=== PATIENT | female | born 1980 | race Caucasian/White ===

== ENCOUNTER → 2020-03-24 15:15 | Outpatient (BNVA) | payer OTHER, SELFPAY | PROVIDERS: PCP Family Medicine; Referring Provider Family Medicine; Visit Provider Obstetrics & Gynecology | DX: Z76.89 Persons encountering health services in other specified circumstances (principal) ==

== ENCOUNTER 2020-03-24 18:01 | Outpatient (REF) | payer OTHER, SELFPAY ==
[2020-03-25 04:02] LABS: CT PCR NOT DETECTED (Not Detect.); NG PCR NOT DETECTED (Not Detect.)
[2020-03-25 11:59] LABS: BV Int Neg Control Negative (Negative); BV Int Pos Control Positive (Positive)
== END 2020-03-24 18:02 | disposition home or self-care (01) ==
LOC: HO.LNP 18:01
PROVIDERS: Visit Provider Obstetrics & Gynecology
DX: Z11.3 Encounter for screening for infections with a predominantly sexual mode of transmission (principal)
CPT/HCPCS: 87480; 87491; 87510; 87591; 87660

== ENCOUNTER → 2020-06-02 10:51 | Outpatient (BNVA) | payer OTHER, SELFPAY | PROVIDERS: PCP Family Medicine; Visit Provider Surgery | DX: Z76.89 Persons encountering health services in other specified circumstances (principal) ==

== ENCOUNTER → 2020-06-30 15:31 | Outpatient (BNVA) | payer OTHER, SELFPAY | PROVIDERS: PCP Family Medicine; Visit Provider Surgery | DX: Z76.89 Persons encountering health services in other specified circumstances (principal) ==

== ENCOUNTER 2020-07-04 08:18 | Outpatient (REF) | payer OTHER, SELFPAY ==
[2020-07-04 08:58] LABS: MANUAL DIFF FLAG NO
[2020-07-04 09:09] LABS: Basophils Percent Auto 0.4 % (0-2); Eosinophils Absolute Auto 0.1 X10*3/uL (0.0-0.4); Eosinophils Percent Auto 1.1 % (0-4); Hematocrit 41.7 % (37-47); Hemoglobin 13.2 g/dl (12.0-16.0); Imm Gran Abs Auto 0.02 X10*3/uL (0.00-0.03); Imm Gran Pct Auto 0.4 % (0.0-0.4); Lymphocytes Absolute Auto 1.8 X10*3/uL (1.2-4.9); Mean Corpuscular HGB Conc 31.7 g/dl (31.0-35.0); Mean Corpuscular Hemoglobin 26.9 pg (27.0-33.0); Mean Corpuscular Volume 84.9 fL (80-98); Mean Platelet Volume 11.5 fL (9.4-12.3); Monocytes Absolute Auto 0.3 X10*3/uL (0.1-1.2); Neutrophils Absolute Auto 3.1 X10*3/uL (2.0-8.3); Neutrophils Percent Auto 58.1 % (45-73); Platelet Count 210 X10*3/uL (160-400); Red Blood Count 4.91 X10*6/uL (4.20-5.50); Red Cell Distribution Width 13.5 % (11.0-16.0); White Blood Count 5.4 X10*3/uL (4.8-10.8)
[2020-07-04 09:32] LABS: Alanine Aminotransferase 11 U/L (0-31); Alkaline Phosphatase 49 U/L (39-117); Anion Gap 10 (12-20); Aspartate Amino Transferase 14 U/L (5-31); Bilirubin Total 0.4 mg/dL (0.0-1.0); Blood Urea Nitrogen 11 mg/dL (9-16); C Reactive Protein 0.12 mg/dL (< or = 0.50); Calcium 8.8 mg/dL (8.4-10.2); Carbon Dioxide 28 mmol/L (22-29); Chloride 107 mmol/L (96-108); Cholesterol 166 mg/dL; Estimated Glomerular Filt Rate > 60; Glucose Fasting 83 mg/dL (60-99); HDL Cholesterol 48 mg/dL; Iron 100 mcg/dL (30-160); LDL Cholesterol Calculated 97 mg/dl; Percent Iron Saturation 36 % (15-50); Potassium 4.2 mmol/l (3.3-5.1); Sodium 141 mmol/L (135-145); Total Iron Binding Capacity 274 mcg/dL (228-428); Total Protein 6.9 g/dL (6.5-8.0); Triglycerides 106 mg/dL; Unsaturated Iron Binding 174 ug/dL
[2020-07-04 09:55] LABS: Thyroid Stimulating Hormone 1.09 uIU/mL (0.32-4.0)
[2020-07-04 10:06] LABS: Vitamin B12 250 pg/mL (200-900)
[2020-07-07 00:53] LABS: Zinc 78 mcg/dL (60-130)
[2020-07-08 15:47] LABS: Vitamin B1 11 nmol/L (8-30)
[2020-07-09 16:07] LABS: Vitamin A 40 mcg/dL (38-98)
== END 2020-07-04 08:19 | disposition home or self-care (01) ==
LOC: HO.LAB 08:18
PROVIDERS: PCP Family Medicine; Visit Provider Surgery
DX: Z01.818 Encounter for other preprocedural examination (principal); K91.2 Postsurgical malabsorption, not elsewhere classified; Z90.3 Acquired absence of stomach [part of]
CPT/HCPCS: 36415; 80053; 80061; 82306; 82607; 83540; 84425; 84443; 84590; 84630; 85025; 86140

== ENCOUNTER 2020-09-02 08:35 | Outpatient (REF) | payer OTHER, SELFPAY ==
[2020-09-02 11:03] LABS: HBsAGNum1 0.15 S/CO (0.00-0.99); HIV AB/AG Nonreactive (Nonreactive); HIV Num 1 0.04 S/CO (0.00-0.99); Hepatitis B Surface Antigen Negative (Negative)
[2020-09-02 11:09] LABS: Syphilis Screen Nonreactive (Nonreactive)
[2020-09-02 15:14] LABS: CT PCR NOT DETECTED (Not Detect.); NG PCR NOT DETECTED (Not Detect.)
[2020-09-03 11:28] LABS: BV Int Neg Control Negative (Negative); BV Int Pos Control Positive (Positive)
== END 2020-09-02 08:36 | disposition home or self-care (01) ==
LOC: HO.LAB 08:35
PROVIDERS: PCP Family Medicine; Visit Provider Obstetrics & Gynecology
DX: Z01.419 Encounter for gynecological examination (general) (routine) without abnormal findings (principal); N93.0 Postcoital and contact bleeding; Z11.3 Encounter for screening for infections with a predominantly sexual mode of transmission
CPT/HCPCS: 36415; 86780; 87340; 87389; 87480; 87491; 87510; 87591; 87660

== ENCOUNTER → 2021-01-05 15:57 | Outpatient (BNVA) | payer OTHER, SELFPAY | PROVIDERS: Referring Provider Family Medicine; Visit Provider Surgery | DX: Z01.818 Encounter for other preprocedural examination (principal); K91.2 Postsurgical malabsorption, not elsewhere classified; Z90.3 Acquired absence of stomach [part of] ==

== ENCOUNTER → 2021-03-08 08:09 | Outpatient (BNVA) | payer OTHER, SELFPAY | PROVIDERS: PCP Family Medicine; Visit Provider Dietitian, Registered | DX: E66.3 Overweight (principal); Z68.26 Body mass index [BMI] 26.0-26.9, adult | CPT/HCPCS: 97803 ==

== ENCOUNTER → 2021-08-08 10:28 | Outpatient (REF) | payer OTHER, SELFPAY ==
--- NOTE | 2021-08-08 10:40 | ECG_ITS ---
Test Reason : PRE OP Blood Pressure : / mmHG Vent. Rate : 068 BPM Atrial Rate : 068 BPM P-R Int : 128 ms QRS Dur : 092 ms QT Int : 388 ms P-R-T Axes : 042 043 048 degrees QTc Int : 412 ms Normal sinus rhythm Normal ECG When compared with ECG of 29-DEC-2019 11:20, No significant change was found Referred By: Shauna Wallace Electronically Signed By:ELIZABETH DAVID
== END ==
LOC: HO.CARD 10:28
PROVIDERS: PCP Family Medicine; Visit Provider Family Medicine
DX: Z01.818 Encounter for other preprocedural examination (principal)
CPT/HCPCS: 93005

== ENCOUNTER 2021-10-09 13:46 | Outpatient (REF) | payer OTHER, SELFPAY ==
[2021-10-10 06:31] LABS: CT PCR NOT DETECTED (Not Detect.); NG PCR NOT DETECTED (Not Detect.)
== END 2021-10-09 13:47 | disposition home or self-care (01) ==
LOC: HO.LAB 13:46
PROVIDERS: Visit Provider Advanced Practice Midwife
DX: Z11.3 Encounter for screening for infections with a predominantly sexual mode of transmission (principal); Z20.2 Contact with and (suspected) exposure to infections with a predominantly sexual mode of transmission
CPT/HCPCS: 87491; 87591

== ENCOUNTER 2021-11-09 11:32 | Emergency (ER) | payer OTHER, SELFPAY ==
--- NOTE | ~2021-11-09 | CT_ITS ---
EXAMINATION: CT ABDOMEN AND PELVIS WITHOUT CONTRAST CLINICAL INFORMATION: Status post tummy tuck surgery. Left lower quadrant swelling. COMPARISON: None TECHNIQUE: Multidetector volumetric imaging was performed from the superior aspect of the liver through the pubic symphysis. Sagittal and coronal reformatted images were obtained on the technologist's workstation. This CT examination was performed using dose optimization techniques as appropriate, variously including the following: *Automated exposure control *Adjustment of mA and/or kV according to patient size (this includes techniques or standardized protocols for targeted exams where dose is matched to indication/reason for exam; i.e. extremities or head) *Use of iterative reconstruction technique DLP: 559 mGy-cm FINDINGS: LUNG BASES: Minimal atelectatic changes seen left lung base. The heart size is normal. LIVER, GALLBLADDER, AND BILIARY TREE: The liver is normal in size, shape, and attenuation. No focal hepatic lesion or biliary ductal dilatation is present. The gallbladder is unremarkable with no evidence of radiopaque gallstones, gallbladder wall thickening, or obvious pericholecystic inflammatory changes. PANCREAS: Unremarkable. SPLEEN: Unremarkable. ADRENAL GLANDS: The right adrenal gland is unremarkable. There is a complex hypodense lesion with peripheral wall calcification measuring 2.2 x 1.6 x 2.3 cm. Question complex left adrenal cyst. It measures 12 Hounsfield units. KIDNEYS AND URETERS: The left kidney is absent. The right kidney is slightly hypertrophied and enlarged measuring 12.4 cm. No radiopaque renal calculi or hydronephrosis seen. BLADDER: The bladder is nondistended. GASTROINTESTINAL TRACT: There is scattered stool and gas seen throughout the colon without any significant distention. The small bowel loops are normal caliber. Appendix is not visualized. There is gastric related postsurgical changes No free fluid seen. ABDOMINAL WALL: Patient has undergone lap resection and abdominal common duct surgery. There is diffuse abdominal wall cellulitis/edema. In addition there is a hypodense collection along the left lower anterior abdominal wall likely a seroma. It measures approximately 5.9 cm in craniocaudad length 5.8 cm wide and 1.7 cm in AP dimension. LYMPH NODES: Normal. VASCULAR: Unremarkable. PELVIC VISCERA: There is a small to moderate size right adnexal hypodense lesion measuring 3.6 x 3.9 cm and 5 Hounsfield units suggestive of a right ovarian cyst. The uterus is anteverted with an IUD well located in correct position within the endometrial canal. No free fluid seen. There are a few scattered phleboliths in the pelvis. OSSEOUS STRUCTURES: No aggressive lytic or sclerotic process. CT/CT abdomen pelvis wo con IMPRESSION: Status post liposuction and abdominal tummy tuck surgery there is diffuse cellulitis or edema of the abdominal wall. In addition there is a a left lower anterior abdominal wall seroma. Post op granulation tissue seen extending from a bowel the umbilicus inferiorly to just above the pubic symphysis. The left kidney is surgically absent. There is a complex cystic likely bilobed lesion in between the left adrenal gland and left renal fossa. The exact origin of this lesion, adrenal or renal is not known. It may be arising from the left adrenal gland. The right kidney is unremarkable. Mild constipation. Fleischner guidelines were followed.
[2021-11-09 13:07] VITALS: BP 159/84; PULSE 71; RESP 18; TEMP 36.9; O2SAT 100; BMI 27.4
--- NOTE | 2021-11-09 14:12 | ED_ITS ---
HPI - Skin/Abscess/Foreign Bdy General Chief complaint: Skin/Abscess/Foreign Body Stated complaint: pump in abd Time Seen by Provider: 11/09/21 13:56 Source: patient Mode of arrival: ambulatory Limitations: no limitations History of Present Illness HPI narrative: 41-year-old female who is status post tummy tuck, 360 lipoma, breast augmentation, BBL 2 months ago in [place] here with complaints of left lower abdomen swelling and pain for a few days. Patient tells me she has been wearing her course at and has been doing more activity at work with bending and lifting. She noticed some swelling and pain to the right lower abdomen initially but now feels like it is more in the left lower abdomen with some pain. No nausea, vomiting, diarrhea, urinary symptoms, fevers, chills. Related Data Home Medications Medication Instructions Recorded Confirmed calcium citrate 1,000 mg tablet 1,000 mg PO DAILY 06/02/20 01/05/21 [id number] 45 mg-folic cap PO .dialy cap 06/02/20 01/05/21 acid 800 mcg-vit K 120 mcg capsule (Bariatric Multivitamins) albuterol sulfate 90 mcg/actuation 2 puff PO Q4H PRN 06/30/20 01/05/21 aerosol inhaler Allergies Allergy/AdvReac Type Severity Reaction Status Date / Time adalimumab [From HUMIRA] Allergy Unknown RASH Verified 11/09/21 13:07 infliximab [From REMICADE] Allergy Unknown ANAPHYLAXIS Verified 11/09/21 13:07 suture [SUTURE] Allergy Unknown LOCAL RXN- Verified 11/09/21 13:07 INFECTION IN 2004 [employer] Allergy Unknown anaphylaxis Uncoded 01/05/21 16:28 Review of Systems Review of Systems: Yes all other systems are reviewed and are negative Constitutional: Constitutional: Reports no additional constitutional complaints, Denies body ache(s), Denies chills, Denies fever(s), Denies headache(s) and Denies weakness Eyes: Eyes: Reports no additional eye complaints and Denies change in vision ENT: Reports system reviewed and no additional complaints, except as documented, Denies dizziness, Denies headache(s), Denies nasal congestion, Denies nasal discharge and Denies neck pain Cardiovascular: Cardiovascular: Reports no additional cardiovascular complaints, Denies chest pain, Denies leg edema and Denies dyspnea Respiratory: Respiratory: Reports no additional respiratory complaints, Denies cough and Denies dyspnea Gastrointestinal: Gastrointestinal: Reports no additional gastrointestinal complaints, Reports abdominal pain, Denies diarrhea, Denies nausea and Denies vomiting Genitourinary: Genitourinary: Reports no additional female genitourinary complaints and Denies urinary incontinence Musculoskeletal: Musculoskeletal: Reports no additional musculoskeletal complaints, Denies back pain, Denies arthralgias, Denies joint swelling, Denies neck pain, Denies numbness and Denies tingling Integumentary/Breasts: Skin/Breast: Reports system reviewed and no additional complaints, except as docu and Denies rash Neurologic: Reports system reviewed and no additional complaints, except as documented, Denies Abnormal speech present, Denies dizziness, Denies headache(s), Denies numbness, Denies tingling and Denies weakness PMFSH Past Medical History Attestation statement: The following information was validated with the patient. Source: old records reviewed and nursing notes reviewed Medical History Asthma Surgical History H/O abdominoplasty H/O bilateral breast reduction surgery H/O breast augmentation H/O knee surgery History of sleeve gastrectomy Family History Family History Paternal Grandfather Prostate cancer Maternal Grandfather Prostate cancer Father No problems noted. Mother High cholesterol Hyperthelia Hypertension Sister No problems noted. Daughter PCOS (polycystic ovarian syndrome) Social History Social History Alcohol intake: current Patient Tobacco Use Status: Never used Tobacco Advance Directives: No Advance Directives Information Provided: No Sexual orientation: Straight/Heterosexual Gender identity: Female Physical Exam Vital Signs: Vital Signs: Last Vital Signs Temp 98.5 F 11/09/21 13:07 Pulse 71 11/09/21 13:07 Resp 18 11/09/21 13:07 BP 159/84 H 11/09/21 13:07 Pulse Ox 100 11/09/21 13:07 BMI result Body Mass Index 27.4 Const: General: cooperative, healthy appearing, comfortable and no acute distress Orientation/consciousness: patient oriented x3 Limitations: no limitations HEENT: Head: Yes normal to inspection Ears: hearing grossly normal bilaterally General nose exam: Normal external nose present Face and sinus: Yes normal facial exam Mouth: Normal oral and palatal mucosa present Throat: Yes posterior oropharynx normal Eyes: General: appearance normal, both eyes and all related structures Pupils: Equal, round and reactive pupils present Neck: Neck: Yes normal visual inspection Chest: Chest palpation & inspection: normal inspection of the chest Resp: Effort & Inspection: normal respiratory effort Auscultation: clear to auscultation bilaterally Cardio: Rate: regular rate Rhythm: regular rhythm Peripheral pulses: Peripheral pulses 2+ throughout GI: Other: Surgical incision site noted to the lower abdomen-healing There is some soft tissue swelling noted over left lower abdomen with tenderness. No palpable hernia. Inspection: Yes normal to inspection Palpation (GI): Soft to palpation and nontender Auscultation: normal bowel sounds Back/Spine/Pelvis: Thoracic/Lumbar Spine: thoracic and lumbar spine normal to inspection Skin: General skin exam: no rashes or lesions noted Neuro: General: patient oriented x3, no focal motor deficits and normal sensation to monofilament Cranial nerves: Yes Equal, round and reactive pupils present Cognition (Neuro): normal cognition Speech: No Abnormal speech present Gait exam (Neuro): Normal gait present Motor exam (neuro): 5/5 motor strength present throughout Extrem: General: Yes normal to inspection Course Course Course Narrative: 41-year-old female here with swelling to the left lower abdomen the setting of recent abdominal wall surgery. Will check labs, UA, CT Reevaluation(s) Reevaluation #1: Reviewed CT. Status post liposuction and abdominal tummy tuck surgery there is diffuse cellulitis or edema of the abdominal wall. In addition there is a a left lower anterior abdominal wall seroma. Post op granulation tissue seen extending from a bowel the umbilicus inferiorly to just above the pubic symphysis. -there is no warmth, redness, fever or leukocytosis concerning for cellulitis. There is an area that is consistent with a seroma. I did speak to General surgery Dr. Diego with the patient in the office. Reviewed worrisome signs and symptoms of when to return to the emergency department. Comfortable discharge home. Time: 18:50 MDM - Skin/Abscess/Foreign Bdy MDM Narrative Medical decision making narrative: seroma Medical Records Attestation: I reviewed the patient's medical records. Lab Data Attestation: I reviewed the patient's lab results. Result diagrams: 11/09/21 14:21 11/09/21 14:21 Labs: Lab Results 11/09/21 11/09/21 11/09/21 Range/Units 14:21 14:21 14:26 WBC 7.7 (4.8-10.8) X10*3/uL RBC 4.22 (4.20-5.50) X10*6/uL Hgb 10.9 L (12.0-16.0) g/dl Hct 35.6 L (37.0-47.0) % MCV 84.4 (80.0-98.0) fL MCH 25.8 L (27.0-33.0) pg MCHC 30.6 L (31.0-35.0) g/dl RDW 13.0 (11.0-16.0) % Plt Count 219 (160-400) X10*3/uL MPV 10.4 (9.4-12.3) fL Immature Gran % (Auto) 0.3 (0.0-0.4) % Neut % (Auto) 65.8 (45-73) % Lymph % (Auto) 25.4 (20-40) % Bryan % (Auto) 6.8 (2-11) % Eos % (Auto) 1.3 (0-4) % Baso % (Auto) 0.4 (0-2) % Lymph # (Auto) 1.9 (1.2-4.9) X10*3/uL Bryan # (Auto) 0.5 (0.1-1.2) X10*3/uL Eos # (Auto) 0.1 (0.0-0.4) X10*3/uL Baso # (Auto) 0.0 (0.0-0.2) X10*3/uL Abs Immat Gran (auto) 0.02 (0.00-0.03) X10*3/uL Absolute Neuts (auto) 5.0 (2.0-8.3) x10*3/uL Absolute Nucleated RBC 0.000 (0.0-0.012) X10*3/uL Nucleated RBC % (auto) 0.0 (0.0-0.2) /100WBC Sodium 140 (135-145) mmol/L Potassium 4.1 (3.3-5.1) mmol/L Chloride 107 (96-108) mmol/L Carbon Dioxide 27 (22-29) mmol/L Anion Gap 10 L (12-20) BUN 12 (9-16) mg/dL Creatinine 0.66 (0.5-1.4) mg/dL Estim Creat Clear Calc 107.5 Estimated GFR > 60 Random Glucose 70 (60-115) mg/dL Calcium 8.6 (8.4-10.2) mg/dL Total Bilirubin 0.4 (0.0-1.0) mg/dL Direct Bilirubin 0.2 (0.0-0.5) mg/dL AST 14 (5-31) U/L ALT 11 (0-31) U/L Alkaline Phosphatase 59 D (39-117) U/L Total Protein 6.4 L (6.5-8.0) g/dL Albumin 3.4 L (3.5-5.0) g/dL Urine Color YELLOW Urine Appearance HAZY Urine pH 6.5 (5.0-8.0) Ur Specific [place] 1.015 (1.005-1.025) Urine Protein NEG (NEG-TRACE) MG/DL Urine Glucose (UA) NEG (NEG) MG/DL Urine Ketones NEG (NEG) MG/DL Urine Blood NEG (NEG) Urine Nitrite NEG (NEG) Ur Leukocyte Esterase NEG (NEG) Urine Test (NEGATIVE) 11/09/21 Range/Units 14:26 WBC (4.8-10.8) X10*3/uL RBC (4.20-5.50) X10*6/uL Hgb (12.0-16.0) g/dl Hct (37.0-47.0) % MCV (80.0-98.0) fL MCH (27.0-33.0) pg MCHC (31.0-35.0) g/dl RDW (11.0-16.0) % Plt Count (160-400) X10*3/uL MPV (9.4-12.3) fL Immature Gran % (Auto) (0.0-0.4) % Neut % (Auto) (45-73) % Lymph % (Auto) (20-40) % Bryan % (Auto) (2-11) % Eos % (Auto) (0-4) % Baso % (Auto) (0-2) % Lymph # (Auto) (1.2-4.9) X10*3/uL Bryan # (Auto) (0.1-1.2) X10*3/uL Eos # (Auto) (0.0-0.4) X10*3/uL Baso # (Auto) (0.0-0.2) X10*3/uL Abs Immat Gran (auto) (0.00-0.03) X10*3/uL Absolute Neuts (auto) (2.0-8.3) x10*3/uL Absolute Nucleated RBC (0.0-0.012) X10*3/uL Nucleated RBC % (auto) (0.0-0.2) /100WBC Sodium (135-145) mmol/L Potassium (3.3-5.1) mmol/L Chloride (96-108) mmol/L Carbon Dioxide (22-29) mmol/L Anion Gap (12-20) BUN (9-16) mg/dL Creatinine (0.5-1.4) mg/dL Estim Creat Clear Calc Estimated GFR Random Glucose (60-115) mg/dL Calcium (8.4-10.2) mg/dL Total Bilirubin (0.0-1.0) mg/dL Direct Bilirubin (0.0-0.5) mg/dL AST (5-31) U/L ALT (0-31) U/L Alkaline Phosphatase (39-117) U/L Total Protein (6.5-8.0) g/dL Albumin (3.5-5.0) g/dL Urine Color Urine Appearance Urine pH (5.0-8.0) Ur Specific [place] (1.005-1.025) Urine Protein (NEG-TRACE) MG/DL Urine Glucose (UA) (NEG) MG/DL Urine Ketones (NEG) MG/DL Urine Blood (NEG) Urine Nitrite (NEG) Ur Leukocyte Esterase (NEG) Urine Test NEGATIVE (NEGATIVE) Imaging Data CT scan - abdomen: Attestation: I personally reviewed and interpreted this imaging study as follows: Radiologist's impression: IMPRESSION: Status post liposuction and abdominal tummy tuck surgery there is diffuse cellulitis or edema of the abdominal wall. In addition there is a a left lower anterior abdominal wall seroma. Post op granulation tissue seen extending from a bowel the umbilicus inferiorly to just above the pubic symphysis. ? The left kidney is surgically absent. There is a complex cystic likely bilobed lesion in between the left adrenal gland and left renal fossa. The exact origin of this lesion,? adrenal or renal is not known. It may be arising from the left adrenal gland. The right kidney is unremarkable. ? Mild constipation. Discharge Plan Discharge Clinical Impression: Abdominal wall seroma Patient Disposition: Home, Self-Care Instructions: Seroma (DC) Additional Instructions: Lymph Massage home Wear your abdominal binder Follow-up with surgery Prescriptions: No Action albuterol sulfate 90 mcg/actuation HFA aerosol inhaler 2 puff PO Q4H PRN (Reason: wheezing) 0RF Bariatric Multivitamins 45 mg iron- 800 mcg-120 mcg capsule PO .dialy 0RF calcium citrate 1,000 mg tablet 1,000 mg PO DAILY 0RF Referrals: Justin Diego MD [Physician] - 1 week Stand Alone Forms: Work/School Release
[2021-11-09 14:32] LABS: MANUAL DIFF FLAG NO
[2021-11-09 14:35] LABS: Appearance Urine HAZY; Color Urine YELLOW; Glucose Urine UA NEG (NEG); Leukocyte Esterase Urine NEG (NEG); Nitrite Urine NEG (NEG); PH 6.5 (5.0-8.0); Specific Gravity - Urine 1.015 (1.005-1.025); Urine Blood NEG (NEG); Urine Ketones NEG (NEG); Urine Protein NEG (NEG-TRACE)
[2021-11-09 14:35] LABS: Basophils Percent Auto 0.4 % (0-2); Eosinophils Absolute Auto 0.1 X10*3/uL (0.0-0.4); Eosinophils Percent Auto 1.3 % (0-4); Hematocrit 35.6 % (37.0-47.0); Hemoglobin 10.9 g/dl (12.0-16.0); Imm Gran Abs Auto 0.02 X10*3/uL (0.00-0.03); Imm Gran Pct Auto 0.3 % (0.0-0.4); Lymphocytes Absolute Auto 1.9 X10*3/uL (1.2-4.9); Lymphocytes Percent Auto 25.4 % (20-40); Mean Corpuscular HGB Conc 30.6 g/dl (31.0-35.0); Mean Corpuscular Hemoglobin 25.8 pg (27.0-33.0); Mean Corpuscular Volume 84.4 fL (80.0-98.0); Mean Platelet Volume 10.4 fL (9.4-12.3); Monocytes Absolute Auto 0.5 X10*3/uL (0.1-1.2); Monocytes Percent Auto 6.8 % (2-11); Neutrophils Percent Auto 65.8 % (45-73); Platelet Count 219 X10*3/uL (160-400); Red Blood Count 4.22 X10*6/uL (4.20-5.50); White Blood Count 7.7 X10*3/uL (4.8-10.8)
[2021-11-09 14:38] LABS: UPreg QC Valid YES; Urine Pregnancy NEGATIVE (NEGATIVE)
[2021-11-09 14:51] LABS: Alanine Aminotransferase 11 U/L (0-31); Albumin Level 3.4 g/dL (3.5-5.0); Alkaline Phosphatase 59 U/L (39-117); Anion Gap 10 (12-20); Aspartate Amino Transferase 14 U/L (5-31); Bilirubin Direct 0.2 mg/dL (0.0-0.5); Bilirubin Total 0.4 mg/dL (0.0-1.0); Blood Urea Nitrogen 12 mg/dL (9-16); Calcium 8.6 mg/dL (8.4-10.2); Carbon Dioxide 27 mmol/L (22-29); Chloride 107 mmol/L (96-108); Creatinine Clr Calc Pharmacy 107.5; Estimated Glomerular Filt Rate > 60; Glucose Random 70 mg/dL (60-115); Potassium 4.1 mmol/L (3.3-5.1); Sodium 140 mmol/L (135-145); Total Protein 6.4 g/dL (6.5-8.0)
== END 2021-11-09 19:11 | disposition home or self-care (01) ==
PROVIDERS: Nurse Practitioner Family; Emergency Provider Emergency Medicine; PCP Family Medicine
DX: K91.872 Postprocedural seroma of a digestive system organ or structure following a digestive system procedure (principal); Y83.8 Other surgical procedures as the cause of abnormal reaction of the patient, or of later complication, without mention of misadventure at the time of the procedure; Y92.9 Unspecified place or not applicable
CPT/HCPCS: 36415; 74176; 80048; 80076; 81003; 81025; 85025; 99284

== ENCOUNTER → 2021-12-05 14:47 | Outpatient (BNVA) | payer OTHER, SELFPAY | PROVIDERS: PCP Family Medicine; Visit Provider Advanced Practice Midwife | DX: Z30.433 Encounter for removal and reinsertion of intrauterine contraceptive device (principal) | CPT/HCPCS: 58301 ==

== ENCOUNTER 2022-06-23 10:26 | Outpatient (REF) | payer OTHER, SELFPAY ==
--- NOTE | ~2022-06-23 | MM_ITS ---
EXAMINATION: MM SCREENING DIGITAL BREAST TOMOSYNTHESIS, BILATERAL CLINICAL INFORMATION: Screening. Asymptomatic. Age 42. No prior breast imaging. Prior history reduction mammoplasty, 2004 and bilateral breast implants, 08/06/2021. No known family history breast cancer. The lifetime risk of breast cancer based on the Tyrer-Cuzick Model is 9%. COMPARISON: None (current study represents initial baseline exam). TECHNIQUE: Digital mammography is performed in craniocaudal and mediolateral oblique views along with computer-aided detection (CAD). Digital breast tomosynthesis is performed in implant-displaced craniocaudal and implant-displaced mediolateral oblique views along with computer-aided detection (CAD). Synthesized 2D images are generated from the tomosynthesis. FINDINGS: There are scattered areas of fibroglandular density (ACR BI-RADS breast composition Category b). There are no significant masses, abnormal calcifications, or other abnormalities. Breast tissue composition borders on predominantly fatty. The implant contours are smooth. The axilla are unremarkable. MM/MM tomosynthesis screen imp BI IMPRESSION: No mammographic evidence of malignancy. ASSESSMENT: BI-RADS 1: Negative RECOMMENDATION: Routine annual mammography screening. This patient's information was entered into a reminder system with a target due date for their next mammogram.
== END 2022-06-23 10:27 | disposition home or self-care (01) ==
LOC: HO.MAMMO 10:26
PROVIDERS: PCP Family Medicine; Visit Provider Advanced Practice Midwife
DX: Z12.31 Encounter for screening mammogram for malignant neoplasm of breast (principal)
CPT/HCPCS: 77063; 77067

== ENCOUNTER 2023-03-20 14:25 | Outpatient (AMB) | payer OTHER, SELFPAY ==
--- NOTE | 2023-03-20 14:27 | MHC.OFFVIS ---
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 Accompanied by: Self / Same As Patient Allergies adalimumab [From HUMIRA] Allergy (Unknown, Verified 03/20/23 14:31) RASH infliximab [From REMICADE] Allergy (Unknown, Verified 03/20/23 14:31) ANAPHYLAXIS suture [SUTURE] Allergy (Unknown, Verified 03/20/23 14:31) LOCAL RXN- INFECTION IN 2004 Remicaid Allergy (Unknown, Uncoded 03/20/23 14:31) anaphylaxis Medication List - Last Reconciled 03/20/23 by Kika Brasher CNM albuterol sulfate 90 mcg/actuation 2 puffs PO Q4H PRN levonorgestrel (Mirena) intrauterine Is last menstrual period known: No (mirena ) 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 She has a complicated medical history which includes several cosmetic surgeries. She also had various medical symptoms and there was a question of lupus or line disease and she had extreme edema and swelling and issues with her knees (including green liquid being removed by syringe as part of evaluation,) and pedal edema and was treated with various rheumatoid medications including prednisone Humira and Remicade she had reactions to each of them and decided after while to just go to pain medication, she eventually weaned herself off of that as well. She prefers fewer medications in general. She is sexually active and is open to testing while and checking her Mirena but does not require any blood work. [facility] Medical History (Updated 03/20/23 @ 15:29 by Kika Brasher CNM) Asthma Surgical History (Updated 03/20/23 @ 15:26 by Kika Brasher CNM) H/O breast augmentation H/O abdominoplasty H/O knee surgery H/O bilateral breast reduction surgery History of sleeve gastrectomy Family History Paternal Grandfather Prostate cancer Maternal Grandfather Prostate cancer Father No problems noted. Mother High cholesterol Hyperthelia Hypertension Sister No problems noted. Daughter PCOS (polycystic ovarian syndrome) Social History Alcohol intake: current Patient Tobacco Use Status: Never used Tobacco Sexual orientation: Straight/Heterosexual Gender identity: Female Female Reproductive History Menstrual Age of Menarche: 12 Total pregnancies: 1 Number of Living Children: 1 Physical Exam Vital Signs: Last Vital Signs BP 118/70 03/20/23 14:30 BMI result Body Mass Index 32.5 Const Other: Multiple scars from cosmetic surgeries. General: healthy appearing, comfortable, no acute distress, well developed and alert Nutritional Appearance: average body habitus Orientation/consciousness: patient oriented x3 Limitations: no limitations HEENT Head: Yes normocephalic Neck Neck: Yes normal visual inspection Chest Chest palpation & inspection: normal inspection of the chest Breast/axilla inspection: normal inspection of the breasts and normal inspection of the axillae Breast/axilla palpation: normal palpation of the breasts and normal palpation of the axillae Resp Effort & Inspection: normal respiratory effort GI Inspection: Yes normal to inspection, No Abdominal wall edema and No distended Palpation (GI): Soft to palpation and nontender Other: Vagina pink and moist normal appearing whitish discharge cervix multiparous with white discharge mobile nontender long thick and closed. Mirena string extends from os 2-3 cm long to left at 03:00 o'clock Uterus small midposition nontender very good tone with Kegel General: Yes bladder normal to palpation External Female Exam: normal external appearance and normal appearance of the urethra Speculum Exam - Vagina: normal appearance of the vagina, normal palpation and normal vaginal discharge Speculum Exam - Cervix: normal appearance of the cervix, normal palpation and nontender Bimanual exam- vagina & uterus: normal bimanual exam, normal palpation, uterine size normal, bladder normal to palpation, consistency normal, normal palpation, uterine mobility normal, uterine shape normal, No Cervical tenderness present, non-tender and no cervical motion tenderness Bimanual Exam- Adnexa, other: normal adnexae, no masses, normal and No adnexal tenderness Neuro General: patient oriented x3 Assessment & Plan Assessment & Plan (1) History of sleeve gastrectomy: Comment: with hiatal hernia repair - 01/05/2020 Code(s): Z90.3 - Acquired absence of stomach [part of] (2) Well woman exam with routine gynecological exam: Code(s): Z01.419 - Encounter for gynecological examination (general) (routine) without abnormal findings (3) Cervical cancer screening: Code(s): Z12.4 - Encounter for screening for malignant neoplasm of cervix (4) Presence of 52 mg levonorgestrel-releasing intrauterine device (IUD): Comment: Replaced 12/05/2021 painful per patient memory. Code(s): Z97.5 - Presence of (intrauterine) contraceptive device (5) Breast cancer screening: Comment: Negative mammogram June 2022. Code(s): Z12.39 - Encounter for other screening for malignant neoplasm of breast Plan This note is constructed using voice recognition software. While every effort has been made to ensure accuracy, airplane tester errors may have been included. -----Discussed in this visit the following: healthy balanced diet, regular and consistent exercise, getting recommended health screens, doing the best she can for her particular health concerns, kegel exercises, pap smear screening and followup recommendations, mammography screening and SBE, normal changes in cycles in her life stage--- Reviewed how the Mirena works and its affect on menstrual cycles and menses and the other common changes that women sometimes notice on mood weight another subtle cyclic changes. Reviewed that 1 of the reasons we insert the Mirena at the beginning of the menses is because of the typical physiologic changes that happen with menses that allow for the cervix to be slightly softened and open a very tiny bit which allow for more easy insertion of the Mirena. 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 Discussed problems to watch for including any severe pain, fever, feeling of expulsion. Also discussed what to do if those occur.(call here or seek urgent care) Reviewed why we leave the strings about 3-4 centimetres long, so that they will curl around the cervix otherwise the sharper tip of the strings could be palpable and be uncomfortable. Additionally when they are cut too short it is not possible to remove the IUD in the future easily. Also discussed the initial recommendations to use the Mirena IUD for contraception for up to 5 years. Some recent studies are indicating that it can be used for longer and there are current recommendations saying it can be left for longer period of time when used for contraception, up to 8 years and it can be used for 5 years when it is being used to help control abnormal bleeding. However, many women, whose periods went away for the 1st few years of having the Mirena, have reported that around 4-1/2-5 years into its use, they have noticed return of full menses, and return of ovulatory signs and symptoms midcycle. This varies from women to woman. In addition women who have had it to help control bleeding, have had amenorrhea for very many years and sometimes have opted to leave it in longer if they are still not bleeding, when they are not concerned about contraception. I recommend the she pay attention to how the effects are acting on her own body, and cycles, and always take care to be aware of this. And if she is using it for contraception, and the consequences of conceiving would be great for her, she would be singh to pay attention to this, and not depend on it, if she has a return to fertility. And if she desires replacement, she should return for replacement at the appropriate time. She may want to have tubal ligation surgery and she is going to think about her options.. Patient also has curiosity about the connections of her ovarian cysts, to her daughter's finding of having a small cyst in her brain soon after , and her PCOS diagnosis. She says her daughter is in the preparatory stages to transition as well. 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 . Orders: Orders CT NG by PCR Today Z01.419 - Encounter for gynecological examination (general) (routine) without abnormal findings Bacterial Vaginosis Panel Today Z01.419 - Encounter for gynecological examination (general) (routine) without abnormal findings Coding Level of Care Code Est Pt Prev Care 40-64y(73173) Diagnoses History of sleeve gastrectomy Z90.3 Well woman exam with routine gynecological exam Z01.419 Cervical cancer screening Z12.4 Presence of 52 mg levonorgestrel-releasing intrauterine device (IUD) Z97.5 Breast cancer screening Z12.39
[2023-03-20 14:30] VITALS: BP 118/70; BMI 32.5
== END 2023-03-20 15:35 | disposition home or self-care (01) ==
PROVIDERS: Visit Provider Advanced Practice Midwife
DX: Z01.419 Encounter for gynecological examination (general) (routine) without abnormal findings (principal); Z97.5 Presence of (intrauterine) contraceptive device
CPT/HCPCS: 99396

== ENCOUNTER 2023-03-20 14:25 | Outpatient (REF) | payer OTHER, SELFPAY ==
[2023-03-20 17:36] LABS: CT PCR NOT DETECTED (Not Detect.); NG PCR NOT DETECTED (Not Detect.)
[2023-03-21 12:34] LABS: BV Int Neg Control Negative (Negative); BV Int Pos Control Positive (Positive)
== END 2023-03-20 14:26 | disposition home or self-care (01) ==
LOC: HO.LNP 14:25
PROVIDERS: Visit Provider Advanced Practice Midwife
DX: Z01.419 Encounter for gynecological examination (general) (routine) without abnormal findings (principal); Z20.2 Contact with and (suspected) exposure to infections with a predominantly sexual mode of transmission; Z90.3 Acquired absence of stomach [part of]; Z97.5 Presence of (intrauterine) contraceptive device
CPT/HCPCS: 0353U; 87480; 87510; 87660

== ENCOUNTER 2024-01-03 14:32 | Outpatient (REF) | payer OTHER, SELFPAY ==
[2024-01-05 21:43] LABS: TS Negative Control Passed; TS Panel A 0; TS Panel B 0; TS Positive Control Passed; TSpotTB Negative (Negative)
[2024-01-07 09:54] LABS: Rubella IgG Antibody 1.45 Index; Rubeola IgG (Measles) <13.50 AU/mL
== END 2024-01-03 14:33 | disposition home or self-care (01) ==
LOC: HO.HHCL 14:32
PROVIDERS: Visit Provider Family Medicine
DX: Z00.00 Encounter for general adult medical examination without abnormal findings (principal)
CPT/HCPCS: 36415; 86481; 86735; 86762; 86765; 86787

== ENCOUNTER 2024-04-24 14:21 | Outpatient (REF) | payer BC, SELFPAY ==
[2024-04-25 05:29] LABS: CT PCR NOT DETECTED (Not Detect.); NG PCR NOT DETECTED (Not Detect.)
[2024-04-25 08:14] LABS: Bacterial Vaginosis PCR NEGATIVE (Negative); Candida Group PCR DETECTED (Not Detect); Candida glab krusei PCR NOT DETECTED (Not Detect); Trichomonas vaginalis PCR NOT DETECTED (Not Detect)
[2024-04-27 10:15] LABS: HPV 16,18/45 See PAP report
== END 2024-04-24 14:22 | disposition home or self-care (01) ==
LOC: HO.LAB 14:21
PROVIDERS: PCP Family Medicine; Visit Provider Advanced Practice Midwife
DX: Z01.419 Encounter for gynecological examination (general) (routine) without abnormal findings (principal); N89.8 Other specified noninflammatory disorders of vagina
CPT/HCPCS: 0352U; 87491; 87591; 87624; 88175

== ENCOUNTER 2024-04-24 14:21 | Outpatient (AMB) | payer BC, SELFPAY ==
[2024-04-24 14:38] VITALS: BP 122/70; BMI 34.2
--- NOTE | 2024-04-24 14:38 | MHC.OFFVIS ---
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 Information Interpreted: clinical only Home Economist Consumer Service: Home Economist Consumer Service Present Allergies adalimumab [From HUMIRA] Allergy (Unknown, Verified 04/24/24 14:46) RASH infliximab [From REMICADE] Allergy (Unknown, Verified 04/24/24 14:46) ANAPHYLAXIS suture [SUTURE] Allergy (Unknown, Verified 04/24/24 14:46) LOCAL RXN- INFECTION IN 2004 Remicaid Allergy (Unknown, Uncoded 04/24/24 14:46) anaphylaxis Medication List - Last Reconciled 04/24/24 by Kika Brasher CNM albuterol sulfate 90 mcg/actuation 2 puffs PO Q4H PRN cxtavtibgt-fgdgwnuoewzsb-xzso 50-325-40 mg 1 tab PO Q6H PRN levonorgestrel (Mirena) intrauterine zolmitriptan (Zomig) 2.5 mg PO Q2-4H PRN Is last menstrual period known: No (Mirena) HPI HPI Annual/ RS X2: Details: 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 she has had a Mirena since she gave to her daughter with the exception a small period of time that she used Depo-Provera but she gained 50 lb in that time so she went back to the Mirena she likes the Mirena however it was very painful both pulling out old ones and putting in new ones so she is thinking that the next time it is due for replacement she would actually want to be sedated in order have procedure done and she is actually thinking that she wants to get her tubes because she does not children at this she tells this CNM that I was the skid strapper who was present when her daughter was born in 2002.. The patient herself is involved with a partner for 4 years she is not worried about STIs but accepts testing exam portion.. She is due for Pap smear today. She had bariatric surgery in 2019 and loss a lot of weight and then she had cosmetic surgery via in 2020 or 2021. She has gained back some weight from her lowest weight. [facility] Medical History Asthma Surgical History H/O breast augmentation H/O abdominoplasty H/O knee surgery H/O bilateral breast reduction surgery History of sleeve gastrectomy Family History Paternal Grandfather Prostate cancer Maternal Grandfather Prostate cancer Father No problems noted. Mother High cholesterol Hyperthelia Hypertension Sister No problems noted. Daughter PCOS (polycystic ovarian syndrome) Social History Alcohol intake: current Patient Tobacco Use Status: Never used Tobacco Sexual orientation: Straight/Heterosexual Gender identity: Female Female Reproductive History Menstrual Age of Menarche: 12 Duration of menses: <3 days control method: progestin IUCD Total pregnancies: 1 Full term: 1 History of abnormal pap smear: No (previous pap,neg.unsure ,date ) Physical Exam Vital Signs: Last Vital Signs BP 122/70 04/24/24 14:38 BMI result Body Mass Index 34.2 Const Other: Scars and body amendments from cosmetic surgery General: healthy appearing, comfortable, no acute distress, well developed and alert Nutritional Appearance: average body habitus Orientation/consciousness: patient oriented x3 Limitations: no limitations HEENT Head: Yes normocephalic Neck Neck: Yes normal visual inspection Chest Chest palpation & inspection: normal inspection of the chest Breast/axilla inspection: normal inspection of the breasts and normal inspection of the axillae Breast/axilla palpation: normal palpation of the breasts and normal palpation of the axillae Resp Effort & Inspection: normal respiratory effort GI Inspection: Yes normal to inspection, No Abdominal wall edema and No distended Palpation (GI): Soft to palpation and nontender Other: External exam within limits there is a cream yellow discharge vagina is pink and moist cervix multiparous pink moist with Mirena string visible cervix long close thick mobile nontender uterus small retroverted mobile nontender patient did find Pap smear uncomfortable. Very good tone with Kegel. General: Yes bladder normal to palpation External Female Exam: normal external appearance and normal appearance of the urethra Speculum Exam - Vagina: normal appearance of the vagina, normal palpation and normal vaginal discharge Speculum Exam - Cervix: normal appearance of the cervix, normal palpation and nontender Bimanual exam- vagina & uterus: normal bimanual exam, normal palpation, uterine size normal, bladder normal to palpation, consistency normal, normal palpation, uterine mobility normal, uterine shape normal, No Cervical tenderness present, non-tender and no cervical motion tenderness Bimanual Exam- Adnexa, other: normal adnexae, no masses, normal and No adnexal tenderness Neuro General: patient oriented x3 Assessment & Plan Assessment & Plan (1) Breast cancer screening: Comment: Negative mammogram June 2022. Code(s): Z12.39 - Encounter for other screening for malignant neoplasm of breast Category: Medical (2) Presence of 52 mg levonorgestrel-releasing intrauterine device (IUD): Comment: Replaced 12/05/2021 painful per patient memory. Code(s): Z97.5 - Presence of (intrauterine) contraceptive device Category: Social Hx (3) Cervical cancer screening: Code(s): Z12.4 - Encounter for screening for malignant neoplasm of cervix Category: Medical (4) Well woman exam with routine gynecological exam: Code(s): Z01.419 - Encounter for gynecological examination (general) (routine) without abnormal findings Category: Medical (5) H/O abdominoplasty: Comment: with butt lift Code(s): Z98.890 - Other specified postprocedural states Category: Surgical (6) H/O breast augmentation: Code(s): Z98.82 - Breast implant status Category: Surgical (7) History of sleeve gastrectomy: Comment: with hiatal hernia repair - 01/05/2020 Code(s): Z90.3 - Acquired absence of stomach [part of] Category: Surgical Plan -----Discussed in this visit the following: healthy balanced diet, regular and consistent exercise, getting recommended health screens, doing the best she can for her particular health concerns, kegel exercises, pap smear screening and followup recommendations, mammography screening and SBE, normal changes in cycles in her life stage--- . Reviewed that I will order a mammogram for her. She is probably due to visit with her primary care provider as well Reviewed that she is content with where she is now, recommend against gaining anymore weight. Reviewed her surgeries. Reviewed her history of very painful and replacement of the Mirena. She is voicing that she would want to have her tubes tied and if she was going to replace the Mirena she would wanted done under anesthesia. That if she removed the Mirena it would mean a return to her menses. If she is considering tubal ligation she may want to schedule consultation with director of training about having tubes tied and Mirena removal at the same time Orders: Orders Pap Smear Today Z01.419 - Encounter for gynecological examination (general) (routine) without abnormal findings CT NG by PCR Today N89.8 - Other specified noninflammatory disorders of vagina, Z12.31 - Encounter for screening mammogram for malignant neoplasm of breast Bacterial Vaginosis Panel Today N89.8 - Other specified noninflammatory disorders of vagina, Z12.31 - Encounter for screening mammogram for malignant neoplasm of breast MM tomosynthesis screening BI Today Z12.31 - Encounter for screening mammogram for malignant neoplasm of breast Coding Level of Care Code Est Pt Prev Care 40-64y(68774) Diagnoses Breast cancer screening Z12.39 Presence of 52 mg levonorgestrel-releasing intrauterine device (IUD) Z97.5 Cervical cancer screening Z12.4 Well woman exam with routine gynecological exam Z01.419 H/O abdominoplasty Z98.890 H/O breast augmentation Z98.82 History of sleeve gastrectomy Z90.3
== END 2024-04-24 15:33 | disposition home or self-care (01) ==
PROVIDERS: PCP Family Medicine; Visit Provider Advanced Practice Midwife
DX: Z01.419 Encounter for gynecological examination (general) (routine) without abnormal findings (principal); Z97.5 Presence of (intrauterine) contraceptive device
CPT/HCPCS: 99396

== ENCOUNTER 2024-05-11 09:55 | Outpatient (AMB) | payer BC, SELFPAY ==
--- NOTE | 2024-05-11 10:05 | A.OFFVIS_ITS ---
VS Expanded 05/11/24 10:17 BP 130/82 Blood Pressure Location Rt brachial Blood Pressure Position Sitting Pulse 75 Pulse Source Pulse Oximeter Temp 97.8 F Temperature Source Temporal Artery Scan Pulse Oximetry 98 Oxygen Delivery Method Room Air Height 5 ft 3 in Weight 189 lb 3.2 oz BMI 33.5 Body Fat % 38.3 Body Fat Mass 72.6 Fat Free Mass 116.6 Visceral Fat Rating 9.0 Body Water % 44.1 Body Water Mass 83.4 Muscle Mass/Score 110.6 Basal Metabolic Rate/Score 1,607 Intake Visit Reasons: (OV) PO LSG 01/06/20 Allergies adalimumab [From HUMIRA] Allergy (Unknown, Verified 05/11/24 10:08) RASH infliximab [From REMICADE] Allergy (Unknown, Verified 05/11/24 10:08) ANAPHYLAXIS suture [SUTURE] Allergy (Unknown, Verified 05/11/24 10:08) LOCAL RXN- INFECTION IN 2004 Remicaid Allergy (Unknown, Uncoded 04/24/24 14:46) anaphylaxis Medication List - Last Reconciled 05/11/24 by ABHINAV Loomis albuterol sulfate 90 mcg/actuation 2 puffs PO Q4H PRN olqosudygp-fnkuiiwcfvfvb-pszf 50-325-40 mg 1 tab PO Q6H PRN levonorgestrel (Mirena) intrauterine zolmitriptan (Zomig) 2.5 mg PO Q2-4H PRN HPI Comments Details: This?is a?44?yo female who is s/p LSG 01/06/[address] Gomez. Presents for 4 year 4 month post op visit. Weight at last visit on 03/08/2021 was 152 pounds with a BMI of 26.9, weight today is 189.2 pounds, representing a 37.2 pound weight gain with a BMI today of 33.5.? No complaints of nausea, emesis, abdominal pain or reflux, or constipation. Pt reports she maintained 155lbs until 2021. Reports she thinks her weight gain is due to lack of exercise and anxiety causing her to crave foods frequently- sugar, carbs and was working at [employer]. 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 Present meal plan includes: eggs in AM, or some form of protein- salads at lunch does not want to use protein shakes often rice at dinner does not MVI Exercise routine includes: having knee pain, tries to go to gym but has discomfort can walk, do upper body weights or bike some cardio machines and lower body weights are difficult PFSH Medical History Asthma Surgical History H/O breast augmentation H/O abdominoplasty H/O knee surgery H/O bilateral breast reduction surgery History of sleeve gastrectomy Family History Paternal Grandfather Prostate cancer Maternal Grandfather Prostate cancer Father No problems noted. Mother High cholesterol Hyperthelia Hypertension Sister No problems noted. Daughter PCOS (polycystic ovarian syndrome) Social History Alcohol intake: current Patient Tobacco Use Status: Never used Tobacco Sexual orientation: Straight/Heterosexual Gender identity: Female Female Reproductive History Menstrual Age of Menarche: 12 Assessment & Plan Assessment & Plan (1) Obesity (BMI 30-39.9): Code(s): E66.9 - Obesity, unspecified Category: Medical (2) History of sleeve gastrectomy: Comment: with hiatal hernia repair - 01/05/2020 Code(s): Z90.3 - Acquired absence of stomach [part of] Category: Surgical Plan New meal plan: 1 shake w 1/2 scoop Pure in 8oz Fairlife 1 PP bar 2 egg omelette 1 meal 6f protein/6f salad/veg Discussed that all of the extra items she is eating (oats/banana in shake, milk/sugar in coffee, lots of meat in omelette, rice) were likely contributing to weight gain and the more of these things that she could cut out, the better weight loss would be. Gave healthy foods list Labs ordered. RTC 2-3 months, texted pt and encouraged her to text me between appts with any concerns. I spent a total of 35 minutes reviewing/updating records, examining the patient and counseling the patient on weight management as detailed above. Orders: Orders Insulin Today Z90.3 - Acquired absence of stomach [part of] Hemoglobin A1c Today Z90.3 - Acquired absence of stomach [part of] IRON PROFILE Today Z90.3 - Acquired absence of stomach [part of] Comprehensive Met. Panel Today Z90.3 - Acquired absence of stomach [part of] Zinc Today Z90.3 - Acquired absence of stomach [part of] Vitamin A Today Z90.3 - Acquired absence of stomach [part of] Ferritin Today Z90.3 - Acquired absence of stomach [part of] Complete Blood Count Auto Diff Today Z90.3 - Acquired absence of stomach [part of] Lipid Panel Today Z90.3 - Acquired absence of stomach [part of] Vitamin B12 and Folate Today Z90.3 - Acquired absence of stomach [part of] C Reactive Protein Today Z90.3 - Acquired absence of stomach [part of] Vitamin B1 Today Z90.3 - Acquired absence of stomach [part of] TSH reflex Free T4 Today Z90.3 - Acquired absence of stomach [part of] Vitamin D 25-OH Total Today Z90.3 - Acquired absence of stomach [part of]
[2024-05-11 10:17] VITALS: BP 130/82; PULSE 75; TEMP 36.6; O2SAT 98; BMI 33.5
== END 2024-05-11 10:49 | disposition home or self-care (01) ==
PROVIDERS: PCP Family Medicine; Visit Provider Physician Assistant Surgical
DX: E66.9 Obesity, unspecified (principal); E66.811 Obesity, class 1; Z68.33 Body mass index [BMI] 33.0-33.9, adult; Z98.84 Bariatric surgery status
CPT/HCPCS: 99214

== ENCOUNTER 2024-06-06 10:35 | Outpatient (REF) | payer BC, SELFPAY | END 2024-06-06 10:36 | disposition home or self-care (01) | LOC: HO.MAMMO 10:35 | PROVIDERS: PCP Family Medicine; Visit Provider Advanced Practice Midwife | DX: Z12.31 Encounter for screening mammogram for malignant neoplasm of breast (principal) | CPT/HCPCS: 77063; 77067 ==

== ENCOUNTER → 2024-06-06 10:36 | Outpatient (BNV) | payer BC, SELFPAY | PROVIDERS: PCP Family Medicine; Visit Provider Internal Medicine | DX: Z12.31 Encounter for screening mammogram for malignant neoplasm of breast (principal) | CPT/HCPCS: 77063; 77067 ==

== ENCOUNTER 2024-06-23 06:35 | Outpatient (REF) | payer BC, SELFPAY ==
[2024-06-23 06:47] LABS: MANUAL DIFF FLAG NO
[2024-06-23 07:24] LABS: Basophils Percent Auto 0.5 % (0-2); Eosinophils Absolute Auto 0.1 X10*3/uL (0.0-0.4); Eosinophils Percent Auto 1.2 % (0-4); Hematocrit 38.4 % (37.0-47.0); Hemoglobin 12.4 g/dl (12.0-16.0); Imm Gran Abs Auto 0.01 X10*3/uL (0.00-0.03); Imm Gran Pct Auto 0.2 % (0.0-0.4); Lymphocytes Absolute Auto 1.9 X10*3/uL (1.2-4.9); Lymphocytes Percent Auto 32.2 % (20-40); Mean Corpuscular HGB Conc 32.3 g/dl (31.0-35.0); Mean Corpuscular Hemoglobin 27.1 pg (27.0-33.0); Mean Corpuscular Volume 83.8 fL (80.0-98.0); Mean Platelet Volume 10.3 fL (9.4-12.3); Monocytes Absolute Auto 0.4 X10*3/uL (0.1-1.2); Neutrophils Absolute Auto 3.4 x10*3/uL (2.0-8.3); Neutrophils Percent Auto 58.9 % (45-73); Platelet Count 199 X10*3/uL (160-400); Red Blood Count 4.58 X10*6/uL (4.20-5.50); Red Cell Distribution Width 12.9 % (11.0-16.0); White Blood Count 5.8 X10*3/uL (4.8-10.8)
[2024-06-23 07:33] LABS: Estimated Average Glucose 88 mg/dL; Hemoglobin A1C 87.4511 umol/L; Hemoglobin A1c % 4.7 % (<6.0); Total Hemoglobin (HGBA1C) 3108.0407 umol/L
[2024-06-23 08:25] LABS: Alanine Aminotransferase 13 U/L (0-31); Albumin Level 3.7 g/dL (3.5-5.0); Alkaline Phosphatase 44 U/L (39-117); Anion Gap 10 (12-20); Aspartate Amino Transferase 17 U/L (5-31); Bilirubin Total 0.5 mg/dL (0.0-1.0); Blood Urea Nitrogen 15 mg/dL (9-16); C Reactive Protein < 0.10 mg/dL (< or = 0.50); Calcium 8.6 mg/dL (8.4-10.2); Carbon Dioxide 24 mmol/L (22-29); Chloride 111 mmol/L (96-108); Cholesterol 178 mg/dL (<200); Estimated Glomerular Filt Rate > 60; Glucose Random 76 mg/dL (60-115); HDL Cholesterol 50 mg/dL (>40); Iron 118 mcg/dL (30-160); LDL Cholesterol Calculated 111 mg/dL (<100); Percent Iron Saturation 44 % (15-50); Sodium 141 mmol/L (135-145); Total Iron Binding Capacity 269 mcg/dL (228-428); Total Protein 6.8 g/dL (6.5-8.0); Triglycerides 88 mg/dL (<150); Unsaturated Iron Binding 151 ug/dL
[2024-06-23 08:55] LABS: Folate 9.8 ng/mL (> or = 4.0); Vitamin B12 279 pg/mL (200-900)
[2024-06-23 09:17] LABS: Ferritin 60 ng/mL (10-250); TSH reflex Free T4 1.73 uIU/mL (0.32-4.0); Vitamin D 25-OH Total 20.8 ng/mL (>30)
[2024-06-23 13:50] LABS: Insulin 5 uU/mL (2-29)
[2024-06-23 15:29] LABS: Beta-Hydroxybutyrate 0.09 mmol/L (0.02-0.27); Bilirubin Direct < 0.1 mg/dL (0.0-0.5)
[2024-06-23 15:35] LABS: Free T4 (Free Thyroxine) 0.97 ng/dL (0.71-1.85)
[2024-06-23 16:21] LABS: CT PCR NOT DETECTED (Not Detect.); NG PCR NOT DETECTED (Not Detect.)
[2024-06-24 09:12] LABS: Hepatitis A Antibody IgG Nonreactive (Nonreactive); ~Hepatitis A Antibody IgG 0.37 S/CO (0.00-0.99)
[2024-06-24 09:17] LABS: HBS Num1 232.59 mIU/mL (0-7.99); HBc Num1 0.07 S/CO (0.00-0.79); HBsAGNum1 0.38 S/CO (0.00-0.99); Hepatitis B Core Antibody Nonreactive (Nonreactive); Hepatitis B Surface Antigen Negative (Negative); ~Hepatitis B Surface Antibody REACTIVE (Nonreactive)
[2024-06-24 19:32] LABS: HCV RNA PCR Qn <1.18 NOT DETECTED Log IU/mL (NOT DETECTED); HCV RNA PCR Qn <15 NOT DETECTED IU/mL (NOT DETECTED)
[2024-06-24 21:09] LABS: C Peptide 4.29 ng/mL (0.80-3.85)
[2024-06-25 11:44] LABS: RPR Rapid Plasma Reagin NON-REACTIVE (NON-REACTIVE)
[2024-06-25 12:42] LABS: Adenovirus F 40/41 Not Detected (Not Detect.); Astrovirus Not Detected (Not Detect.); Campylobacter Not Detected (Not Detect.); Cryptosporidium Not Detected (Not Detect.); Cyclospora cayetanensis Not Detected (Not Detect.); E. coli EAEC Not Detected (Not Detect.); E. coli EPEC Not Detected (Not Detect.); E. coli ETEC Not Detected (Not Detect.); E. coli STEC Not Detected (Not Detect.); Entamoeba histolytica Not Detected (Not Detect.); Giardia lamblia Not Detected (Not Detect.); Norovirus GI/GII Not Detected (Not Detect.); Plesiomonas shigelloides Not Detected (Not Detect.); Rotavirus A Not Detected (Not Detect.); Salmonella Not Detected (Not Detect.); Sapovirus Not Detected (Not Detect.); Shigella sp./EIEC Not Detected (Not Detect.); Vibrio Not Detected (Not Detect.); Vibrio Cholerae Not Detected (Not Detect.); Yersinia enterocolitica Not Detected (Not Detect.)
[2024-06-26 05:13] LABS: Zinc 62 mcg/dL (60-130)
[2024-06-26 08:13] LABS: HIV RNA PCR Qn Copies Not Detected Copies/mL; HIV RNA PCR Qn Log Copies Not Detected Log cps/mL
[2024-06-26 16:33] LABS: Vitamin A 50 mcg/dL (38-98)
[2024-06-28 15:29] LABS: Vitamin B1 9 nmol/L (8-30)
== END 2024-06-23 06:36 | disposition home or self-care (01) ==
LOC: HO.LAB 06:35
PROVIDERS: Absent Provider Family Medicine; PCP Family Medicine; Visit Provider Physician Assistant Surgical
DX: R25.1 Tremor, unspecified (principal); G43.909 Migraine, unspecified, not intractable, without status migrainosus; R19.4 Change in bowel habit; Z90.3 Acquired absence of stomach [part of]
CPT/HCPCS: 36415; 80053; 80061; 80076; 82010; 82248; 82306; 82607; 82728; 82746; 83036; 83525; 83540; 84425; 84439; 84443; 84590; 84630; 84681; 85025; 86140; 86592; 86704; 86706; 86708; 87177; 87209; 87340; 87491; 87507; 87522; 87536; 87591; 87900

== ENCOUNTER 2024-07-09 07:01 | Outpatient (REF) | payer BC, SELFPAY ==
[2024-07-10 08:48] LABS: C Peptide 2.09 ng/mL (0.80-3.85)
== END 2024-07-09 07:02 | disposition home or self-care (01) ==
LOC: HO.LAB 07:01
PROVIDERS: PCP Family Medicine; Visit Provider Family Medicine
DX: R94.7 Abnormal results of other endocrine function studies (principal)
CPT/HCPCS: 36415; 84681

== ENCOUNTER 2024-07-31 09:09 | Outpatient (REF) | payer BC, SELFPAY ==
--- NOTE | ~2024-07-31 | US_ITS ---
CLINICAL HISTORY: reflux and nausea US abdomen complete with duplex and color Doppler Comparison: None Findings: The visualized pancreas, aorta, and inferior vena cava are unremarkable. Liver normal size and echotexture. Right lobe 14.0 cm length. No focal hepatic masses. Common duct 3.0 mm diameter. Physiologic distention of the gallbladder. No gallstones or sludge. No gallbladder wall thickening. No pericholecystic fluid. No sonographic Alcazar sign. Main portal vein antegrade. Right kidney normal size, 12.2 cm in length. Normal cortical width and echotexture. No solid or cystic renal masses. No nephrolithiasis or hydronephrosis. Left kidney not identified in the left renal fossa. Spleen measures 10.6 cm. No splenic masses. No ascites. No lymphadenopathy. Impression: 1. No evidence of cholelithiasis or cholecystitis. 2. A left kidney was not identified in the left renal fossa clinical correlation. This document has been electronically signed by: Bruce Gomez MD on 08/01/2024 07:43:57
--- OUTSIDE RECORDS SUMMARY | 2024-07-31 09:33 | XMS_ITS | Encounter Summary ---
Author Organization [facility] Address [address] [place] [address] [address] [place] [address] Care Team Providers Care Pump Installer Name Role Phone Shauna Wallace DO Primary Care Provider [phone] Encounter Details Date Type Department Care Team (Latest Contact Info) Description 03/26/2019 Abstract [facility] CONVERSIONS Dental, Provider, DDS Social History Tobacco Use Types Packs/Day Years Used Date Smoking Tobacco: Never Assessed Comments Unknown Sex and Gender Information Value Date Recorded Sex Assigned at Female 2022 10:17 AM EDT Legal Sex Female 10:17 AM EDT Gender Identity Female 2022 10:17 AM EDT Sexual Orientation Straight 2022 10 :17 AM EDT documented as of this encounter Plan of Treatment Upcoming Encounters Date Type Department Care Team (Late st Contact Info) Description 09/16/2024 2:00 PM EDT Office Visit [facility] ADULT DENTAL [address] [place] [address] Gaurav, Deb [address] [place] [address] documented as of this encounter Visit Diagnoses Not on filedocumented in this encounter Care Teams Pump Installer Relationship Specialty Start Date End Date Shauna Wallace DO [address] [place] [address] PCP - General Family Medicine 12/01/19 documented as of this encounter
--- OUTSIDE RECORDS SUMMARY | 2024-07-31 09:33 | XMS_ITS | Encounter Summary ---
Author Organization [employer] Address [address] [place] [address] [address] [place] [address] Care Team Providers Care Chocolate Production Machine Operator Name Role Phone PaigeShauna woo DO Primary Care Provider + [phone] Reason for Visit * Reason Comments Annual Exam Encounter Details Date Type Department Care Team ([facility] st Contact Info) Description 07/24/2024 10:45 AM EST Office Visit [facility] [address] [place], [place] [phone] Marjan Ritchie MD [address] [place], [place] [phone] Encounter for preventive health examination (Primary Dx); Rheumatoid arthritis, involving unspecified site, unspecified whether rheumatoid factor present (CMS/HCC); Mild intermittent asthma without complication; Class 1 obesity without serious comorbidity with body mass index (BMI) of 34.0 to 34.9 in adult, unspecified obesity type; Hyperchloremia; Dietary counseling; Exercise counseling Social History Tobacco Use Types Packs/Day Years Used Date Smoking Tobacco: Never Passive Smoke Exposure: Never Smokeless Tobacco: Never Tobacco Cessation:Counseling Given: Not Answered Alcohol Use Standard Drinks/Week Comments Never 0 (1 standard drink = 0.6 oz pur e alcohol) Depression Answer Date Recorded Patient Health Questionnaire-9 Score 0 07/26/2022 Housing Stability Answer Date Recorded What is your housing situation today? I have willa smalls 07/24/[address] you li ve. Do you have problems with any of the following? None of the above 07/24/2024 Food Insecurity Answer Date Recorded Within the past 12 months, y ou worried that your food would run out before you got money to buy more: Never True 07/24/2024 Within the past 12 months,th e food you bought just didn't last and you didn't have enough money to get more: Never True 12/2024 Transportation Answer Date Recorded In the past 12 months, has l ack of transportation kept you from medical appts, meetings, work or from getting things needed for daily living? No 07/24/2024 Utilities Answer Date Recorded In the past 12 months, has t he electric, gas, oil or water company threatened to shut off services in your home? No 07/24/2024 Depression Answer Date Recorded Patient Health Questionnaire-2 Score 0 07/24/2024 Internet Access Answer Date Recorded Internet Access Q1 No 07/24/2024 Internet Access Q2 I do not want or need it 12/2024 Comments No Sex and Gender Information Value Date Recorded Sex Assigned at Female 2022 10:17 AM EDT Legal Sex Female 10:17 AM EDT Gender Identity Female 2022 10:17 AM EDT Sexual Orientation Straight 2022 10 :17 AM EDT documented as of this encounter Last Filed Vital Signs Vital Sign Reading Time Taken Comments Blood Pressure 130/86 07/24/2024 10:47 AM EST Pulse 75 07/24/2024 10:47 AM EST Temperature 36 ??C (96.8 ??F) 07/24/2024 10:47 AM EST Respiratory Rate 16 07/24/2024 10:47 AM EST Oxygen Saturation 100% 07/24/2024 10:47 AM EST Inhaled Oxygen Concentration - - Weight 89 kg (196 lb 2 oz) 07/24/2024 10:[address] Height 160 cm (5' 3 ) 07/24/2024 10:47 AM EST Body Mass Index 34.74 07/24/2024 10:47 AM EST documented in this encounter Progress Notes * Marjan Ritchie MD - 07/24/2024 10:45 AM EST SUBJECTIVE: Velia Davis is a 44 y.o. year old female who presents for routine physical exam. Denies recent illness, injury, or hospitalization. Patient here for PE. -PAP smear: 04/24/2024 -Mammogram: 06/06/2024 -Ophthalmology: 2022 -Labs: 06/22/2024 -Dental visit: 06/25/2024 -Adult IZ: Influenza 03/07/2023; MMR 01/07/2024; COVID X 2 07/28/2020; PSV23 12/11/2019; TDAP 12/26/2016 -Safety: she feels safe at home -Intimate Partner Violence Screening: negative. -In Relationship: Yes -STI screenin06/23/2024 -Hx STI/concern: No -Not Interested in PrEP -Lives with AMAB partner -PHQ 07/26 IUD (2023) - control GI appointment in August 2024 Acute Concerns: She is concerned of high chloride results. CMP on 06/2024 showed Cl on 111, with low anion gap. Social History Social History Narrative Not on file Patient Active Problem List Diagnosis Chronic migraine with aura Mild intermittent asthma Rheumatoid arthritis (CMS/HCC) Overweight Status post laparoscopic sleeve gastrectomy Periodontal disease Tipped teeth Dental caries on smooth surface limited to enamel Encounter for preventive health examination Class 1 obesity without serious comorbidity with body mass index (BMI) of 34.0 to 34.9 in adult Hyperchloremia No family history on file. Review of Systems Constitutional: Positive for unexpected weight change (increased weight). Negative for chills, fatigue and fever. HENT: Negative for congestion, ear pain, nosebleeds, rhinorrhea, sinus pressure, sore throat and trouble swallowing. Eyes: Negative for pain and discharge. Respiratory: Negative for cough, chest tightness and shortness of breath. Cardiovascular: Negative for chest pain, palpitations and leg swelling. Gastrointestinal: Positive for diarrhea. Negative for abdominal pain, blood in stool, constipation and nausea. Endocrine: Negative for polydipsia and polyuria. Genitourinary: Negative for dysuria, frequency, genital sores, pelvic pain and vaginal discharge. Musculoskeletal: Negative for back pain and neck pain. Skin: Negative for rash. Allergic/Immunologic: Negative for environmental allergies. Neurological: Negative for dizziness, seizures, weakness, light-headedness and headaches. Hematological: Negative for adenopathy. Psychiatric/Behavioral: Negative for agitation, behavioral problems, self-injury and suicidal ideas. OBJECTIVE: Vitals: 07/24/24 1047 BP: 130/86 Pulse: 75 Resp: 16 Temp: 96.8 ??F (36 ??C) SpO2: 100% Physical Exam HENT: Right Ear: Tympanic membrane and ear canal normal. Left Ear: Tympanic membrane and ear canal normal. Mouth/Throat: Mouth: Mucous membranes are moist. Pharynx: No oropharyngeal exudate or posterior oropharyngeal erythema. Eyes: Pupils: Pupils are equal, round, and reactive to light. Cardiovascular: Rate and Rhythm: Regular rhythm. Pulses: Normal pulses. Heart sounds: Normal heart sounds. No murmur heard. Pulmonary: Breath sounds: Normal breath sounds. Abdominal: General: Bowel sounds are normal. Palpations: Abdomen is soft. Tenderness: There is no abdominal tenderness. Musculoskeletal: General: Normal range of motion. Cervical back: Neck supple. Skin: General: Skin is warm. Neurological: General: No focal deficit present. Mental Status: She is alert and oriented to person, place, and time. Psychiatric: Mood and Affect: Mood normal. Behavior: Behavior normal. Problem List Items Addressed This Visit Encounter for preventive health examination - Primary Discussed with patient re increase fresh fruit and vegetable intake. Counseled re moderate exercise as tolerated, up to 20min/d Patient feels safe at home. 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 Lipids/FBS: UTD, next one due 2025 Vaccinations: declined COVID and Flu, Adult IZ are UTD. Dental visit: UTD next one due 12/2024 Rheumatoid arthritis (CMS/HCC) Unclear diagnosis, most recent labs normal. Off treatment since 2019. Mild intermittent asthma Controlled, advised to use albuterol prn. Declined COVID and Flu immunizations. Class 1 obesity without serious comorbidity with body mass index (BMI) of 34.0 to 34.9 in adult S/p bariatric surgery 15+ years ago. Discussed re weight reduction options including exercise, life style modifications, diet. Recommended to decrease soda and sugary beverage consumption, increase protein intake with meals (at least 1 portion of protein with each meal) to assist with satiety, increase dietary fiber Recommended at least 150 min/week of moderate intensity exercise. FU with PCP and consider medication. Hyperchloremia Most likely related to intermittent diarrhea. Advised regarding proper hydration with SRO. Other Visit Diagnoses Dietary counseling Exercise counseling Follow Up: Current Outpatient Medications on File Prior to Visit Medication Sig Dispense Refill baclofen (Lioresal) 10 MG tablet Take 1 tablet (10 mg) by mouth if needed in the morning, at noon, and at bedtime for muscle spasms. 60 tablet 1 fwdwncfqii-shiswpiatqkwi-wekkefgu 50-325-40 MG tablet TAKE 1 TABLET BY MOUTH EVERY 4 HOURS NEEDED FOR HEADACHE 20 tablet 1 Diclofenac Sodium 1 % gel Apply 2 g topically if needed in the morning and at bedtime (pain). 100 g3 omeprazole OTC (PriLOSEC OTC) 20 MG EC tablet Take 1 tablet (20 mg) by mouth before breakfast. Do not crush, chew, or split. 30 tablet 11 polycarbophil (Fibercon) 625 MG tablet Take 1 tablet (625 mg) by mouth 2 times daily. 180 tablet 3 Saccharomyces boulardii (probiotic) 250 MG capsule Take 1 capsule (250 mg) by mouth Once per day. 30 capsule 3 ZOLMitriptan (Zomig) 2.5 MG tablet TAKE 1 TABLET BY MOUTH AT ONSET OF MIGRAINE. MAY REPEAT ONCE AFTER 2 HOURS IF NEEDED, DO NOT EXCEED 2 TABLETS / 24 HOURS 9 tablet 1 [DISCONTINUED] albuterol 108 (90 Base) MCG/ACT inhaler Inhale 2 puffs every 6 (six) hours if neededfor wheezing. 18 g 1 No current facility-administered medications on file prior to visit. I, Renée Myles, am serving as a scribe to document services personally performed by Dr. Marjan Ritchie, based on the patient's response to questions by provider and provider's statements to me. documented in this encounter Miscellaneous Notes * Assessment & Plan Note - Renée Myles MA - 07/24/2024 1:49 PM EST Associated Problem(s): Hyperchloremia Most likely related to intermittent diarrhea. Advised regarding proper hydration with SRO. * Assessment & Plan Note - Renée Myles MA - 07/24/2024 1:47 PM EST Associated Problem(s): Class 1 obesity without serious comorbidity with body mass index (BMI) of 34.0 to 34.9 in adult S/p bariatric surgery 15+ years ago. Discussed re weight reduction options including exercise, life style modifications, diet. Recommended to decrease soda and sugary beverage consumption, increase protein intake with meals (at least 1 portion of protein with each meal) to assist with satiety, increase dietary fiber Recommended at least 150 min/week of moderate intensity exercise. FU with PCP and consider medication. * Assessment & Plan Note - Renée Myles MA - 07/24/2024 1:45 PM EST Associated Problem(s): Mild intermittent asthma Controlled, advised to use albuterol prn. Declined COVID and Flu immunizations. * Assessment & Plan Note - Renée Myles MA - 07/24/2024 1:42 PM EST Associated Problem(s): Rheumatoid arthritis (CMS/HCC) Unclear diagnosis, most recent labs normal. Off treatment since 2018. * Assessment & Plan Note - Renée Myles MA - 07/24/2024 11:27 AM EST Associated Problem(s): Encounter for preventive health examination Discussed with patient re increase fresh fruit and vegetable intake. Counseled re moderate exercise as tolerated, up to 20min/d Patient feels safe at home. 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 Lipids/FBS: UTD, next one due 2025 Vaccinations: declined COVID and Flu, Adult IZ are UTD. Dental visit: UTD next one due 12/2024 documented in this encounter Plan of Treatment Upcoming Encounters Date Type Department Care Team ([facility] st Contact Info) Description 09/16/2024 2:00 PM EDT Office Visit [facility] [address] [place], [place] [phone] Deb Nolasco [address], [place] [phone] documented as of this encounter Visit Diagnoses Diagnosis Encounter for preventive health examination- Primary Rheumatoid arthritis, involving unspecified site, unspecified whether rheumatoid factor present ([facility]) Mild intermittent asthma without complication Class 1 obesity without serious comorbidity with body mass index (BMI) of 34.0 to 34.9 in adult, unspecified obesity type Hyperchloremia Electrolyte and fluid disorders not elsewhere classified Dietary counseling Dietary surveillance and counseling Exercise counseling documented in this encounter Additional Health Concerns Assessment Noted Time PHQ-9 Depression Total Score: 0 07/26/19 23 11:44 AM EST documented as of this encounter Care Teams Chocolate Production Machine Operator Relationship Specialty Start Date End Date Shauna Wallace DO [address] [place] [address] PCP - General Family Medicine 12/01/19 documented as of this encounter
--- OUTSIDE RECORDS SUMMARY | 2024-07-31 09:33 | XMS_ITS | Encounter Summary ---
Author Organization [employer] Address [address] [facility] [address] [place] [address] Care Team Providers Care Hospitality Intern Name Role Phone PaigeShauna woo Primary Care Provider + [phone] Encounter Details Date Type Department Care Team (Latest Contact Info) Description 07/24/2024 Travel Social History Tobacco Use Types Packs/Day Years Used Date Smoking Tobacco: Never Passive Smoke Exposure: Never Smokeless Tobacco: Never Alcohol Use Standard Drinks/Week Comments Never 0 [...] Description 09/16/2024 2:00 PM EDT Office Visit [facility] [address] [place] [address] Gaurav, Deb [address] [place] [address] documented as of this encounter Visit Diagnoses Not on filedocumented in this encounter Additional Health Concerns Assessment Noted Time PHQ-9 Depression Total Score: 0 07/26/19 23 11:44 AM EST documented as of this encounter Care Teams Hospitality Intern Relationship Specialty Start Date End Date Shauna Wallace DO [address] [place] [address] PCP - General Family Medicine 12/01/19 documented as of this encounter
--- OUTSIDE RECORDS SUMMARY | 2024-07-31 09:33 | XMS_ITS | Encounter Summary ---
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 Would like to resheduled. 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 Would like to resheduled. 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 ) Social History Tobacco Use Types Packs/Day Years Used Date Smoking Tobacco: Never Passive Smoke Exposure: Never Smokeless Tobacco: Never Alcohol Use Standard Drinks/Week Comments Never 0 (1 standard drink = 0.6 oz pur e alcohol) Depression Answer Date Recorded Patient Health Questionnaire-9 Score 0 07/26/2022 Depression Answer Date Recorded Patient Health Questionnaire-2 Score 0 07/26/2022 Comments Unknown Sex and Gender Information Value Date Recorded Sex Assigned at Female 2022 10:17 AM EDT Legal Sex Female 10:17 AM EDT Gender Identity Female 2022 10:17 AM EDT Sexual Orientation Straight 2022 10 :17 AM EDT COVID-19 Exposure Response Date Recorded In the last 10 days, have elif u been in contact with someone who was confirmed or suspected to have Coronavirus/COVID-19? 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 Would like to resheduled. 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 DR documented in this encounter Plan of Treatment Upcoming Encounters Date Type Department Care Team (Late st Contact Info) Description 09/16/2024 2:00 PM EDT Office Visit [facility] [address] [place] [address] Gaurav, Deb [address] [place] [address] documented as of this encounter Visit Diagnoses Not on filedocumented in this encounter Additional Health Concerns Assessment Noted Time PHQ-9 Depression Total Score: 0 07/26/19 23 11:44 AM EST documented as of this encounter Care Teams Manager Career Relationship Specialty Start Date End Date Shauna Wallace DO [address] [place] [address] PCP - General Family Medicine 12/01/19 documented as of this encounter
--- OUTSIDE RECORDS SUMMARY | 2024-07-31 09:33 | XMS_ITS | Encounter Summary ---
Author Organization [employer] Address [address] [facility] [address] [place] [address] Care Team Providers Care Full Stack Python Developer Name Role Phone Shauna Wallace DO Primary Care Provider + [phone] Reason for Visit * Reason Comments Pre-visit Planning Pre visit planning L VM Encounter Details Date Type Department Care Team ([facility] st Contact Info) Description 07/13/2024 Patient Outreach [facility] [address] [place], [place] [phone] Shauna Wallace DO [address] [place] [address] Pre-visit Planning (Pre visit planning LVM ) Social History Tobacco Use Types Packs/Day Years Used Date Smoking Tobacco: Never Passive Smoke Exposure: Never Smokeless Tobacco: Never Alcohol Use Standard Drinks/Week Comments Never 0 (1 standard drink = 0.6 oz pur e alcohol) Depression Answer Date Recorded Patient Health Questionnaire-9 Score 0 07/26/2022 Housing Stability Answer Date Recorded What is your housing situation today? I have willa smalls 04/11/[address] you li ve. Do you have problems with any of the following? None of the above 04/11/2023 Food Insecurity Answer Date Recorded Within the past 12 months, y ou worried that your food would run out before you got money to buy more: Never True 04/11/2023 Within the past 12 months,th e food you bought just didn't last and you didn't have enough money to get more: Never True Transportation Answer Date Recorded In the past 12 months, has l ack of transportation kept you from medical appts, meetings, work or from getting things needed for daily living? No 04/11/2023 Utilities Answer Date Recorded In the past 12 months, has t he electric, gas, oil or water company threatened to shut off services in your home? No 04/11/2023 Depression Answer Date Recorded Patient Health Questionnaire-2 Score 0 07/26/2022 Comments Unknown Sex and Gender Information Value Date Recorded Sex Assigned at Female 2022 10:17 AM EDT Legal Sex Female 10:17 AM EDT Gender Identity Female 2022 10:17 AM EDT Sexual Orientation Straight 2022 10 :17 AM EDT documented as of this encounter Progress Notes * Darline Kim - 07/13/2024 1:02 PM EST SOBEIDA Gomez placed outbound call to patient to complete pre-visit planning. No answer at this time.Patient name and were not confirmed. CC left voicemail requesting return call. Direct contact information provided. documented in this encounter Plan of Treatment Upcoming Encounters Date Type Department Care Team (Late st Contact Info) Description 09/16/2024 2:00 PM EDT Office Visit [facility] [address] [place] [address] Deb Nolasco [address] [place] [address] documented as of this encounter Visit Diagnoses Not on filedocumented in this encounter Additional Health Concerns Assessment Noted Time PHQ-9 Depression Total Score: 0 07/26/19 23 11:44 AM EST documented as of this encounter Care Teams Full Stack Python Developer Relationship Specialty Start Date End Date Shauna Wallace DO [address] [place], [place] [phone] PCP - General Family Medicine 12/01/19 documented as of this encounter
--- OUTSIDE RECORDS SUMMARY | 2024-07-31 09:34 | XMS_ITS | Clinical Summary ---
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 60 tablet 1 07/26/19 23 Active butalbital-abigail taminophen-caf feine 50-325-40 MG tabletIndicati ons:Nonintract able chronic migraine TAKE 1 TABLET BY MOUTH EVERY 4 HOURS NEEDED FOR HEADACHE 20 tablet 1 04/24/20 24 Active Diclofenac Sodium 1 % gelIndications :Neck pain Apply 2 g topically if needed in the morning and at bedtime (pain). 100 g 3 04/24/20 24 Active ZOLMitriptan (Zomig) 2.5 MG tabletIndicati ons:Nonintract able chronic migraine TAKE 1 TABLET BY MOUTH AT ONSET OF MIGRAINE. MAY REPEAT ONCE AFTER 2 HOURS IF NEEDED, DO NOT EXCEED 2 TABLETS / 24 HOURS 9 tablet 1 06/22/19 25 Active polycarbophil (Fibercon) 625 MG tablet Take 1 tablet (625 mg) by mouth 2 times daily. 180 tablet 3 06/22/19 25 026 Active Saccharomyces boulardii (probiotic) 250 MG capsule Take 1 capsule (250 mg) by mouth Once per day. 30 capsule 3 06/22/19 25 Active omeprazole OTC (PriLOSEC OTC) 20 MG EC tablet Take 1 tablet (20 mg) by mouth before breakfast. Do not crush, chew, or split. 30 tablet 11 06/22/19 25 026 Active albuterol 108 (90 Base) MCG/ACT inhaler Inhale 2 puffs every 6 (six) hours if needed for wheezing. 18 g 1 07/24/19 25 026 Active albuterol 108 (90 Base) MCG/ACT inhaler Inhale 2 puffs every 6 (six) hours if needed for wheezing. 18 g 1 10/10/19 24 025 Discontinued(Re order (will not trigger notification to Pharmacy)) Active Problems Problem Noted Date Diagnosed Date Encounter for preventive health examination 12/2024 Assessment & Plan (07/24/2024 11:27 AM EST): Discussed with patient re increase fresh fruit and vegetable intake. Counseled re moderate exercise as tolerated, up to 20min/d Patient feels safe at home. 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 Lipids/FBS: UTD, next one due 2025 Vaccinations: declined COVID and Flu, Adult IZ are UTD. Dental visit: UTD next one due 12/2024 Class 1 obesity without seri ous comorbidity with body mass index (BMI) of 34.0 to 34.9 in adult 07/24/2024 Assessment & Plan (07/24/2024 1:47 PM EST): S/p bariatric surgery 15+ years ago. Discussed re weight reduction options including exercise, life style modifications, diet. Recommended to decrease soda and sugary beverage consumption, increase protein intake with meals (at least 1 portion of protein with each meal) to assist with satiety, increase dietary fiber Recommended at least 150 min/week of moderate intensity exercise. FU with PCP and consider medication. Hyperchloremia 07/24/2024 Assessment & Plan (07/24/2024 1:49 PM EST): Most likely related to intermittent diarrhea. Advised regarding proper hydration with SRO. Dental caries on smooth surface limited to ename l 06/25/2024 Tipped teeth 05/25/2024 Periodontal disease 04/18/2023 Mild intermittent asthma 07/26/2022 Assessment & Plan (07/24/2024 1:45 PM EST): Controlled, advised to use albuterol prn. Declined COVID and Flu immunizations. Overweight 07/26/2022 Status post laparoscopic sleeve gastrectomy 02/2023 Chronic migraine with aura 12/26/2016 Rheumatoid arthritis 12/26/2016 Assessment & Plan (07/24/2024 1:42 PM EST): Unclear diagnosis, most recent labs normal. Off treatment since 2018. Resolved Problems Problem Noted Date Diagnosed Date Resolved Date Caries of cervical margin of tooth 04/23/2023 06/22/2024 Dental calculus 04/18/2023 06/22/2024 Morbid obesity 07/26/2022 07/26/2022 Encounters Date Type Department Care Team Description 07/24/2024 10:45 AM EST Office Visit [facility] [address] [place] [phone] Marjan Ritchie MD Encounter for preventive health examination (Primary Dx); Rheumatoid arthritis, involving unspecified site, unspecified whether rheumatoid factor present ([facility]); Mild intermittent asthma without complication; Class 1 obesity without serious comorbidity with body mass index (BMI) of 34.0 to 34.9 in adult, unspecified obesity type; Hyperchloremia; Dietary counseling; Exercise counseling 07/24/2024 Travel 07/13/2024 Patient Outreach [facility] [address] [place] [phone] Shauna Wallace, Pre-visit Planning (Pre visit planning LVM ) 06/25/2024 3:00 PM EST Office Visit [facility] [address] [place] [phone] Anton Forbes DDS Dental caries on smooth surface limited to enamel (Primary Dx) 06/25/2024 Travel 06/23/2024 Telephone [facility] [address] [place] [phone] Shauna Wallace DO Lab Orders 06/23/2024 Orders Only GENERIC EXTERNAL DATA DEPARTMENT Provider, Generic External Data 06/22/2024 10:15 AM EST Telemedicine [facility] [address] [facility] [place] [address] Shauna Wallace, Change in bowel habits (Primary Dx); Gastroesophageal reflux disease, unspecified whether esophagitis present; Shakiness; Nonintractable chronic migraine 06/22/2024 Travel 06/15/2024 Telephone [facility] [address] [place] [address] Shauna Wallace DO 06/12/2024 Telephone [place] [address] Sahuna Wallace DO insurance 06/06/2024 Orders Only [facility] External Provider, [facility] 05/25/2024 2:00 PM EST Office Visit [facility] [address] [place] [address] Deb Nolasco Tipped teeth (Primary Dx); Dental calculus; Periodontal disease from Last 3 Months Immunizations Name Administration Dates Next Due Influenza Injectable Quadriv alant Preservative Free IIV4 MDCK 03/07/2023,03/01/2022,03/07/2021,03/01,04/01/2019 Influenza injectable quadriv alent IIV4 with preservative 04/02/2018 MMR 01/07/2024 Moderna Covid-19 Vaccine 12+ 07/28/2020,06/30/19 21 Pneumococcal Polysaccharide PPSV23 12/11/2019 Tdap 12/26/2016 Social History Tobacco Use Types Packs/Day Years [...] Orientation Straight 2022 10 :17 AM EDT Last Filed Vital Signs Vital Sign Reading [...] Mass Index 34.74 07/24/2024 10:47 AM EST Plan of Treatment Upcoming Encounters Date Type Department Care Team (Late st Contact Info) Description 09/16/2024 2:00 PM EDT Office Visit [facility] [address] [place] [phone] Deb Nolasco [address] [place] [address] Health Maintenance Due Date Last Done Comments Alcohol/Substance Use Screening 1994 Family Planning (PISQ) 1997 Hepatitis B Vaccines (1 of 3 - 19+ 3-dose series) 2001 Pneumococcal Vaccine: Pediatrics (0 to 5 Years) and At-Risk Patients (6 to 49) Years) (2 of 2 - PCV) 12/10/2020 12/11/2019 COVID-19 Vaccine (3 - season) 2024 07/28/2020, 06/30/2020 Dental Oral Exam 11/24/2024 05/25/2024, 10/09/2022 Dental Prophylaxis 11/24/2024 05/25/2024, 1 06/18/2022, 10/18/2022 Dental X-Ray: Bitewings 05/26/2025 05/25/2024, 04/11 Mammogram 06/06/2025 06/06/2024 Depression Screening 07/24/2025 07/24/2024, 07/26/19 23 SDOH Screening 07/24/2025 07/24/2024 Tobacco Screening 07/24/2025 07/24/2024 Dental X-Ray: Full Mouth 10/11/2025 10/10/2022 DTaP/Tdap/Td Vaccines (2 - Td or Tdap) 12/26/2026 12/26/2016 Cervical Cancer Screening 04/24/2029 HPV/Cotest 04/24/2029 09/23/2018, 11/13/2017 Pap Smear 04/24/2029 04/24/2024 Lipid Panel 06/23/2029 06/23/2024, 05/05/2020 Zoster Vaccines (1 of 2) 2032 RSV Patients and Patients Aged 60 years or older (1 - 1-dose 75+ series) 2057 Hepatitis C Screening Completed 03/16/2020 HIV Screening Completed 08/02/2021, 08/15, 03/16/2020 Influenza Vaccine Completed 04/06/2024, , 03/01/2022, Additional history exists HIB Vaccines Aged Out No longer eligi ble based on patient's age to complete this topic HPV Vaccines Aged Out No longer eligi ble based on patient's age to complete this topic Hepatitis A Vaccines Aged Out No long er eligible based on patient's age to complete this topic IPV Vaccines Aged Out No longer eligi ble based on patient's age to complete this topic Meningococcal Vaccine Aged Out No kiel alma eligible based on patient's age to complete this topic RSV under 20 months Aged Out No longe r eligible based on patient's age to complete this topic Rotavirus Vaccines Aged Out No longer eligible based on patient's age to complete this topic Procedures Procedure Name Priority Date/Time Associated Diagnosis Comments C-PEPTIDE Routine 07/09/2024 7:11 AM EST Elevated C peptide level 31 DO RESIN-BASED COMPOSITE - 2 SURF, POSTERIOR Routine 06/25/2024 3:00 PM EST 18 O RESIN-BASED COMPOSITE - 1 SURF, POSTERIOR Routine 06/25/2024 3:00 PM EST HIV 1 RNA, QN PCR W/RFL JENNIFER (RTI,PI,INTEGRASE) Routine 06/23/2024 2:36 PM EST HCV RNA BY PCR, QN RFX JENNIFER Routine 06/23/2024 2:36 PM EST BILIRUBIN, DIRECT Routine 06/23/2024 2:3 6 PM EST BETA-HYDROXYBUTYRATE Routine 06/23/2024 2:36 PM EST Change in bowel habits Shakiness Nonintractable chronic migraine C-PEPTIDE Routine 06/23/2024 2:36 PM EST Change in bowel habits Shakiness Nonintractable chronic migraine HEPATITIS B CORE AB TOTAL Routine 06/23/2024 2:36 PM EST Change in bowel habits Shakiness Nonintractable chronic migraine HEPATITIS A ANTIBODY, TOTAL Routine 06/23/2024 2:36 PM EST Change in bowel habits Shakiness Nonintractable chronic migraine HEPATITIS B SURFACE ANTIBODY, QUALITATIVE Routine 06/23/2024 2:36 PM EST Change in bowel habits Shakiness Nonintractable chronic migraine RPR (MONITOR) W/REFL TITER Routine 06/23/2024 2:36 PM EST Change in bowel habits Shakiness Nonintractable chronic migraine HEPATITIS B SURFACE ANTIGEN, EIA Routine 06/23/2024 2:36 PM EST Change in bowel habits Shakiness Nonintractable chronic migraine T4, FREE Routine 06/23/2024 2:36 PM EST Change in bowel habits Shakiness Nonintractable chronic migraine CHLAMYDIA/N. GONORRHOEAE RNA, TMA, UROGENITAL Routine 06/23/2024 1:56 PM EST Change in bowel habits Shakiness Nonintractable chronic migraine GASTROINTESTINAL PANEL Routine 7:26 AM EST Change in bowel habits Shakiness Nonintractable chronic migraine OVA AND PARASITES, CONC AND PERM SMEAR Routine 06/23/2024 7:26 AM EST Change in bowel habits Shakiness Nonintractable chronic migraine VITAMIN B1 Routine 06/23/2024 6:45 AM EST VITAMIN A Routine 06/23/2024 6:45 AM EST ZINC Routine 06/23/2024 6:45 AM EST INSULIN Routine 06/23/2024 6:45 AM EST TSH W/REFLEX TO FT4 Routine 06/23/2024 6 :45 AM EST VITAMIN D,25-OH,TOTAL,IA Routine 025 6:45 AM EST FERRITIN Routine 06/23/2024 6:45 AM EST VITAMIN B12/FOLATE, SERUM PANEL Routine 06/23/2024 6:45 AM EST LIPID PANEL, STANDARD Routine 06/23/2024 6:45 AM EST C-REACTIVE PROTEIN Routine 06/23/2024 6: 45 AM EST IRON AND TOTAL IRON BINDING CAPACITY Routine 06/23/2024 6:45 AM EST COMPREHENSIVE METABOLIC PANEL Routine 06/23/2024 6:45 AM EST HEMOGLOBIN A1C Routine 06/23/2024 6:45 AM EST CBC WITH AUTO DIFFERENTIAL Routine 06/23/2024 6:45 AM EST BI MAMMOGRAM SCREEN W HE W IMPLANTS ASAEL Routine 06/06/2024 10:36 AM EST COMPREHENSIVE PERIODONTAL EVALUATION - NEW OR ESTABLISHED PATIENT Routine 05/25/2024 2:00 PM EST PERIODIC ORAL EVALUATION - ESTABLISHED PATIENT Routine 05/25/2024 2:00 PM EST INTRAORAL - PERIAPICAL EACH ADDITIONAL RADIOGRAPHIC IMAGE Routine 05/25/2024 2:00 PM EST Tipped teeth Dental calculus Periodontal disease INTRAORAL - PERIAPICAL EACH ADDITIONAL RADIOGRAPHIC IMAGE Routine 05/25/2024 2:00 PM EST Tipped teeth Dental calculus Periodontal disease INTRAORAL - PERIAPICAL FIRST RADIOGRAPHIC IMAGE Routine 05/25/2024 2:00 PM EST Tipped teeth Dental calculus Periodontal disease ORAL HYGIENE INSTRUCTIONS Routine 05/25/2024 2:00 PM EST Tipped teeth Dental calculus Periodontal disease BITEWINGS - 4 RADIOGRAPHIC IMAGES Routine 05/25/2024 2:00 PM EST Tipped teeth Dental calculus Periodontal disease Full PROPHYLAXIS - ADULT Routine 2:00 PM EST Dental calculus Periodontal disease 22 DEBRA COMPOSITE FILLING Routine 12:00 AM EST 23 DEBRA COMPOSITE FILLING Routine 12:00 AM EST 24 DEBRA COMPOSITE FILLING Routine 12:00 AM EST 25 DEBRA COMPOSITE FILLING Routine 12:00 AM EST 26 DEBRA COMPOSITE FILLING Routine 12:00 AM EST 27 DEBRA COMPOSITE FILLING Routine 12:00 AM EST 11 DEBRA COMPOSITE FILLING Routine 12:00 AM EST 10 DEBRA COMPOSITE FILLING Routine 12:00 AM EST 9 DEBRA COMPOSITE FILLING Routine 05/25/20 12:00 AM EST 8 DEBRA COMPOSITE FILLING Routine 05/25/20 24 12:00 AM EST 7 DEBRA COMPOSITE FILLING Routine 05/25/20 12:00 AM EST 6 DEBRA COMPOSITE FILLING Routine 05/25/20 12:00 AM EST 15 O AMALGAM FILLING Routine 05/25/2024 12:00 AM EST PAP SMEAR Routine 04/24/2024 12:00 AM EST HIV 1/2 ANTIGEN/ANTIBODY, FOURTH GENERATION W/RFL Routine 08/02/2021 1:25 PM EST ZZZ HISTORICAL HEPATITIS C ANTIBODY RFLX Routine 03/16/2020 1:25 PM EDT ZZZ HISTORICAL HPV MRNA E6/E7 Routine 09/23/2018 12:17 PM EDT from Last 3 Months or Most Recently Relevant to Health Maintenance Results * C-Peptide (07/09/2024 7:11 AM EST) Only the most recent of2 resultswithin the time period is included. Pathologist [facility] C-Peptide 2.09 0.80 - 3.85 ng/mL [facility] Comment:THIS TEST WAS PERFOR MED AT:[employer] [address] [id number] BARRY MD Blood Venous blood specimen / Unknown 07/09/2024 7:11 AM EST 07/09/2024 7:11 AM EST us Shauna Wallace DO LAB BLOOD ORDERABLES Final R esult [facility] [address] [place] [phone] * HCV RNA BY PCR, QN RFX JENNIFER (06/23/2024 2:36 PM EST) HCV RNA PCR QN <15 NOT DETECTED NOT DETECTED IU/mL [facility] HCV RNA PCR QN <1.18 NOT DETECTED NOT DETECTED Log IU/mL [facility] HCV RNA COMMENT SEE NOTE [facility] Comment:For additional infor froilan, please refer tohttp://education.[employer]/faq/FAL30q3(This link is being provided for informational/Educational purposes only.)THIS TEST WAS PERFORMED AT:[employer] [address] [id number] BARRY MD HCV RNA GENOTYPE,LIPA [facility] Comment:Test not indicated. 06/23/2024 2:36 PM EST 06/23/2024 2:36 PM EST us Shauna Wallace DO LAB BLOOD ORDERABLES Final R esult [facility] [address] [place] [phone] * HIV-1 RNA, Quantitative, Real-Time PCR with Reflex to Genotype (RTI, PI, Integrase) (06/23/2024 2:36 PM EST) HIV RNA PCR Qn Copies Not Detected Copies/mL [facility] HIV RNA PCR Qn Log Copies Not Detected Log cps/mL [facility] Comment:Reference Range: Not Detected copies/mL Not Detected Log copies/mLThe test was performed using Real-Time Polymerase ChainReaction.Reportable Range: 20 copies/mL to 10,000,000 copies/mL(1.30 Log copies/mL to 7.00 Log copies/mL).THIS TEST WAS PERFORMED AT:[employer]/[id number] [place] [address]HBDVVHJBRIAN APONTE MD,PHD HIV-1 Genotype Progressive [facility] HIV 1 Genotype [facility] Comment:Test not indicated. 06/23/2024 2:36 PM EST 06/23/2024 2:36 PM EST Shauna Rodrigo DO LAB BLOOD ORDERABLES Final R esult Performing Organization Address [facility] Co de Phone Number [facility] [address] [place] [phone] * Beta-Hydroxybutyrate (06/23/2024 2:36 PM EST) Beta-Hydroxybut yrate 0.09 0.02 - 0.27 mmol/L [facility] Blood Venous blood specimen / Unknown 06/23/2024 2:36 PM EST 06/23/2024 2:36 PM EST Shauna Rodrigo DO LAB BLOOD ORDERABLES Final R esult Performing Organization Address [facility] Co de Phone Number [facility] [address] [place] [phone] * Hepatitis A Antibody, Total (06/23/2024 2:36 PM EST) Hepatitis A Antibody IgG Nonreactive Nonreactive [facility] Blood Venous blood specimen / Unknown 06/23/2024 2:36 PM EST 06/23/2024 3:21 PM EST Shauna Wallace DO LAB BLOOD ORDERABLES Final R esult Performing Organization Address [facility] Co de Phone Number [facility] [address] [place] [phone] * Hepatitis B surface antigen, EIA (06/23/2024 2:36 PM EST) Hepatitis B Surface Ag Negative Negative [facility] Blood Venous blood specimen / Unknown 06/23/2024 2:36 PM EST 06/23/2024 2:36 PM EST Shauna Rodrigo DO LAB BLOOD ORDERABLES Final R esult [facility] [address] [place] [phone] * Hepatitis B Core Antibody, Total (06/23/2024 2:36 PM EST) Pathologist [facility] Hepatitis B Core Antibody Nonreactive Nonreactive [facility] Blood Venous blood specimen / Unknown 06/23/2024 2:36 PM EST 06/23/2024 2:36 PM EST Shauna Wallace DO LAB BLOOD ORDERABLES Final R esult Performing Organization Address [facility] Co de Phone Number [facility] [address] [place] [phone] [phone] * RPR (Monitor) with Reflex to??Titer (06/23/2024 2:36 PM EST) Pathologist [facility] RPR (Monitor) w/Refl Titer NON-REACTI VE NON-REACT JUSTA [facility] Comment:THIS TEST WAS PERFOR MED AT:[employer] [address] [id number] BARRY MD Rapid Plasma Reagin Ab Titer TNP [facility] Blood Venous blood specimen / Unknown 06/23/2024 2:36 PM EST 06/23/2024 2:36 PM EST us Shauna Wallace DO LAB BLOOD ORDERABLES Final R esult Performing Organization Address [facility] Co de Phone Number [facility] [address] [place] [phone] [phone] * Hepatitis B Surface Antibody, Qualitative (06/23/2024 2:36 PM EST) Pathologist [facility] ~Hepatitis B Surface Antibody REACTIVE Nonreactive [facility] Comment:REACTIVE: > 11.99 mI U/mL Blood Venous blood specimen / Unknown 06/23/2024 2:36 PM EST 06/23/2024 2:36 PM EST Shauna Wallace LAB BLOOD ORDERABLES Final [facility] Performing Organization Address [facility] de Phone Number [facility] [address] [place] [phone] * T4, Free (06/23/2024 2:36 PM EST) [facility] Free T4 (Free Thyroxine) 0.97 0.71 - 1.85 ng/dL [facility] Blood Venous blood specimen / Unknown 06/23/2024 2:36 PM EST 06/23/2024 2:36 PM EST Shauna Wallace LAB BLOOD ORDERABLES Final R [facility] Performing Organization Address [facility] Phone Number [facility] [address] [place] [phone] * Bilirubin, Direct (06/23/2024 2:36 PM EST) [facility] Bilirubin, Direct <0.1 0.0 - 0.5 mg/dL [facility] 06/23/2024 2:36 PM EST 06/23/2024 2:36 PM EST Result [facility] Shauna Wallace LAB BLOOD ORDERABLES Final [facility] Performing Organization Address [facility] de Phone Number [facility] [address] [place] [phone] * Chlamydia/N. Gonorrhoeae RNA, TMA, Urogenitial (06/23/2024 1:56 PM EST) [facility] CT PCR NOT DETECTED Not Detect. [facility] Comment:A not detected test result does not exclude the possibilityof infection because test results can be affected byimproper specimen collection, concurrent antibiotic therapy,or the number of organisms in the specimen which may bebelow the sensitivity of the test. As with many diagnostictests, results from the Xpert CT/NG assay should beinterpreted in conjunction with other laboratory andclinical data available to the clinician.Xpert CT/NG performance has not been evaluated in patientsless than 14 years of age. The assay should not be used forthe evaluationof suspected sexual abuse or for other medico-legalindications. Additional testing is recommended in anycircumstance when false positive or false negative resultscould lead to adverse medical, social or psychologicalconsequences. NG PCR NOT DETECTED Not Detect. [facility] Comment:A not detected test result does not exclude the possibilityof infection because test results can be affected byimproper specimen collection, concurrent antibiotic therapy,or the number of organisms in the specimen which may bebelow the sensitivity of the test. As with many diagnostictests, results from the Xpert CT/NG assay should beinterpreted in conjunction with other laboratory andclinical data available to the clinician.Xpert CT/NG performance has not been evaluated in patientsless than 14 years of age. The assay should not be used forthe evaluationof suspected sexual abuse or for other medico-legalindications. Additional testing is recommended in anycircumstance when false positive or false negative resultscould lead to adverse medical, social or psychologicalconsequences. Urine Urethral structure / Unknown 06/23/2024 1:56 PM EST 06/23/2024 2:40 PM EST Narrative [facility] - 06/23/2024 4:21 PM EST Urine Shauna Wallace DO LAB MICROBIOLOGY - GENERAL O RDERABLES Final Result [facility] [address] [place] [phone] * Stool - Gastrointestinal panel (06/23/2024 7:26 AM EST) Campylobacter Not Detected Not Detect. [facility] Plesiomonas shigelloides Not Detected Not Detect. [facility] Salmonella Not Detected Not Detect. [facility] Vibrio Not Detected Not Detect. [facility] Vibrio cholerae Not Detected Not Detect. [facility] YERSINIA ENTEROCOLITICA Not Detected Not Detect. [facility] Enteroaggregative E. coli (EAEC) Not Detected Not Detect. [facility] Enteropathogenic E. coli (EPEC) Not Detected Not Detect. [facility] Enterotoxigenic E. coli (ETEC) lt/st Not Detected Not Detect. [facility] Shiga-like toxin-producing E. coli (STEC) stx1/stx2 Not Detected Not Detect. [facility] E coli O157 Not applicable Not Detect. [facility] Comment:E. coli containing t he O157 antigen are a subset ofShiga-like toxin- producing E. coli (STEC). Shigella/Enteroinvasive E. coli (EIEC) Not Detected Not Detect. [facility] Cryptosporidium Not Detected Not Detect. [facility] Cyclospora cayetanensis Not Detected Not Detect. [facility] Entamoeba histolytica Not Detected Not Detect. [facility] Giardia lamblia Not Detected Not Detect. [facility] Adenovirus F 40/41 Not Detected Not Detect. [facility] Astrovirus Not Detected Not Detect. [facility] Norovirus GI/GII Not Detected Not Detect. [facility] Rotavirus A Not Detected Not Detect. [facility] Sapovirus Not Detected Not Detect. [facility] Comment: All results must be correlated with clinical findings.Negative results do not exclude the possibility ofgastrointestinal infection and should not be used as thesole basis for diagnosis, treatment, or other managementdecisions. Virus, bacteria, and parasite nucleic acid maypersist in vivo independently of organism viability.Additionally, some organisms may be carriedasymptomatically.Detection of organism targets does not imply that thecorresponding organisms are infectious or are the causativeagents for clinical symptoms. There is a risk of falsenegative values due to the presence of sequence variants inthe gene targets of the assay, amplification inhibitors inspecimens, or inadequate numbers of organisms foramplification.The identification of several diarrheagenic E. colipathotypes has historically relied upon phenotypiccharacteristics. This panel targets genetic determinantscharacteristic of most pathogenic strains, but may notdetect all strains having phenotypic characteristics of apathotype.The performance of this test has not been established formonitoring treatment of infection with any of the panelorganisms.This assay is performed by Multiplexed PCR, utilizing Scan Film Array. Stool Rectal contents / Unknown 06/23/2024 7:26 AM EST 06/25/2024 8:54 AM EST us Shauna Wallace DO LAB MICROBIOLOGY - GENERAL O RDERABLES Final Result [facility] [address], [place] [phone] * Ova and Parasites (06/23/2024 7:26 AM EST) Ova and Parasite Trichrome SEE NOTE [facility] Comment: ??OVA AND PARASITES, CONC AND PERM SMEAR ??Micro Number: ?[id number] ??Test Status: ? Final ??Specimen Source: ?? Stool ??Specimen Quality: ??Adequate ??CONCENTRATION 1: ?? No ova or parasites seen ??TRICHROME 1: ? No ova or parasites seen ? Routine Ova and Parasite exam may not detect some ? parasites that occasionally cause diarrheal ? illness. Cryptosporidium Antigen and/or Cyclospora ? and Isospora Exam may be ordered to detect these ? parasites. One negative sample does not ? necessarily rule out the presence of a parasitic ? infection. ? For additional information, please refer to ? https://Social DJ.B[employer] Eye Systems/faq/FFH274 ? (This link is being provided for informational/ ? educational purposes only.)THIS TEST WAS PERFORMED AT:[employer] [facility] [address] [place], [place] ??[address]JBKF JUDSON,MD Stool Rectal contents / Unknown 06/23/2024 7:26 AM EST 06/25/2024 8:54 AM EST Shauna Wallace DO LAB MICROBIOLOGY - GENERAL O RDERABLES Final Result [facility] [address] [place] [phone] * (ABNORMAL) Vitamin D, 25-Hydroxy, Total, Immunoassay (06/23/2024 6:45 AM EST) Vitamin D 25-OH Total 20.8(L) >30 ng/mL [facility] Comment:Health Based Referen ce Values*< 20 ng/mL Ltneolevt64-94 ng/mL Insufficient> 30 ng/mL Sufficient*Nathanael MURO. N Engl J Med. 2007;357:266-280Care must be taken in interpreting Vitamin D results fromdifferent laboratories and methodologies. Published datademonstrated that results from patients undergoinghemodialysis may show a negative bias when tested withvarious automated 25-OH vitamin D assays when compared toLC-MS/MS.When testing samples from patients whose predominant form ofVitamin D is Vitamin D2, such as patients receiving VitaminD2 supplementation, results that are subtherapeutic shouldbe confirmed with another method such as LC-MS/MS. 06/23/2024 6:45 AM EST 06/23/2024 6:45 AM EST us Generic External Data Provider LAB BLOOD ORDERAB LES Final Result Performing Organization Address [facility] Co de Phone Number [facility] [address] [place] [phone] * Vitamin B12 (Cobalamin) and Folate Panel, Serum (06/23/2024 6:45 AM EST) Pathologist [facility] Vitamin B12 279 200 - 900 pg/mL [facility] Comment:NORMAL 200-900 PG/ML INDETERMINATE 160-199 PG/ML DEFICIENT < 160 PG/ML Folate 9.8 > or = 4.0 ng/mL [facility] Comment:Reference Values:> o r = 4.0 ng/mL< 4.0 ng/mL suggests folate deficiency Methotrexate, aminopterin and folinic acid(leucovorin) are chemotherapeutic agents whose molecularstructures are similar to folate; therefore, the Architectfolate assay cannot be used for patients using these drugs. 06/23/2024 6:45 AM EST 06/23/2024 6:45 AM EST Generic External Data Provider LAB BLOOD ORDERAB LES Final Result Performing Organization Address [facility] Co de Phone Number [facility] [address] [place] [phone] * TSH with Reflex to Free T4 (06/23/2024 6:45 AM EST) Pathologist [facility] TSH reflex Free T4 1.73 0.32 - 4.0 uIU/mL [facility] 06/23/2024 6:45 AM EST 06/23/2024 6:45 AM EST Generic External Data Provider LAB BLOOD ORDERAB LES Final Result Performing Organization Address [facility] Co de Phone Number [facility] [address] [place] [phone] * CBC auto differential (06/23/2024 6:45 AM EST) Pathologist [facility] White Blood Count 5.8 4.8 - 10.8 X10*3/uL [facility] Red Blood Count 4.58 4.20 - 5.50 X10*6/uL [facility] Hemoglobin 12.4 12.0 - 16.0 g/dl [facility] Hematocrit 38.4 37.0 - 47.0 % [facility] Mean Corpuscular Volume 83.8 80.0 - 98.0 fL [facility] Mean Corpuscular Hemoglobin 27.1 27.0 - 33.0 pg [facility] Mean Corpuscular HGB Conc 32.3 31.0 - 35.0 g/dl [facility] Red Cell Distribution Width 12.9 11.0 - 16.0 % [facility] Platelet Count 199 160 - 400 X10*3/uL [facility] Mean Platelet Volume 10.3 9.4 - 12.3 fL [facility] Neutrophils Percent Auto 58.9 45 - 73 % [facility] Imm Gran Pct Auto 0.2 0.0 - 0.4 % [facility] Lymphocytes Percent Auto 32.2 20 - 40 % [facility] Monocytes Percent Auto 7.0 2 - 11 % [facility] Eosinophils Percent Auto 1.2 0 - 4 % [facility] Basophils Percent Auto 0.5 0 - 2 % [facility] NRBC Pct Auto 0.0 0.0 - 0.2 /100WBC [facility] Neutrophils Absolute Auto 3.4 2.0 - 8.3 x10*3/uL [facility] Imm Gran Abs Auto 0.01 0.00 - 0.03 X10*3/uL [facility] Lymphocytes Absolute Auto 1.9 1.2 - 4.9 X10*3/uL [facility] Monocytes Absolute Auto 0.4 0.1 - 1.2 X10*3/uL [facility] Eosinophils Absolute Auto 0.1 0.0 - 0.4 X10*3/uL [facility] Basophils Absolute Auto 0.0 0.0 - 0.2 X10*3/uL [facility] NRBC Abs Auto 0.000 0.0 - 0.012 X10*3/uL [facility] 06/23/2024 6:4 5 AM EST 06/23/2024 6:45 AM EST Generic External Data Provider LAB BLOOD ORDERAB LES Final Result Performing Organization Address [facility] Co de Phone Number [facility] [address] [place] [phone] * Iron And Total Iron Binding Capacity (06/23/2024 6:45 AM EST) Iron 118 30 - 160 mcg/dL [facility] Total Iron Binding Capacity 269 228 - 428 mcg/dL [facility] Percent Iron Saturation 44 15 - 50 % [facility] Unsaturated Iron Binding 151 ug/dL [facility] 06/23/2024 6:45 AM EST 06/23/2024 6:45 AM EST Generic External Data Provider LAB BLOOD ORDERAB LES Final Result Performing Organization Address [facility] Phone Number [facility] [address] [place] [phone] * Insulin (06/23/2024 6:45 AM EST) Insulin 5 2 - 29 uU/mL [facility] Comment:This test was perfor med using the Mahajan chemiluminescentmethod. Values obtained from different assay methods cannot beused interchangeably. This insulin assay shows a possiblecross-reactivity with antibodies generated against insulin(immunoreactive insulin and some patients treated withbovine or porcine insulin). Insulin levels may be measuredlower in patients with insulin autoimmune syndrome orfamilial high pro-insulinemia. 06/23/2024 6:45 AM EST 06/23/2024 6:45 AM EST Generic External Data Provider LAB BLOOD ORDERAB LES Final Result Performing Organization Address [facility] Co de Phone Number [facility] [address] [place] [address] [phone] * Zinc (06/23/2024 6:45 AM EST) Zinc 62 60 - 130 mcg/dL [facility] Comment:This test was develo ped and its analytical performancecharacteristics have been determined by [employer] [place], [place]. It hasnot been cleared or approved by the .S. Food and DrugAdministration. This assay has been validated pursuantto the CLIA regulations and is used for clinicalpurposes.THIS TEST WAS PERFORMED AT:[employer] [id number] [place] [address]FMOOQTZBRIAN APONTE MD,PHD 06/23/2024 6:45 AM EST 06/23/2024 6:45 AM EST us Generic External Data Provider LAB BLOOD ORDERAB LES Final Result [facility] [address] [place] [address] [phone] * Vitamin A (06/23/2024 6:45 AM EST) Pathologist [facility] Vitamin A (Retinol) 50 38 - 98 mcg/dL [facility] Comment:Vitamin supplementat ion within 24 hours prior toblood draw may affect the accuracy of the results.This test was developed and its analytical performancecharacteristics have been determined by [employer] [place], [place]. It hasnot been cleared or approved by the U.S. Food and DrugAdministration. This assay has been validated pursuantto the CLIA regulations and is used for clinicalpurposes.THIS TEST WAS PERFORMED AT:[employer] [place] [address]VZOFKVVBRIAN APONTE MD,PHD 06/23/2024 6:45 AM EST 06/23/2024 6:45 AM EST us Generic External Data Provider LAB BLOOD ORDERAB LES Final Result Performing Organization Address [facility] Co de Phone Number [facility] [address] [place] [address] [phone] * C-reactive Protein (06/23/2024 6:45 AM EST) C Reactive Protein <0.10 < or = 0.50 mg/dL [facility] 06/23/2024 6:45 AM EST 06/23/2024 6:45 AM EST Generic External Data Provider LAB BLOOD ORDERAB LES Final Result Performing Organization Address [facility] Phone Number [facility] [address] [place] [address] [phone] * Vitamin B1 (06/23/2024 6:45 AM EST) Vitamin B1 9 8 - 30 nmol/L [facility] Comment:Vitamin supplementat ion within 24 hours prior toblood draw may affect the accuracy of the results.This test was developed and its analytical performancecharacteristics have been determined by [employer] [place], [place]. It hasnot been cleared or approved by the U.S. Food and DrugAdministration. This assay has been validated pursuantto the CLIA regulations and is used for clinicalpurposes.THIS TEST WAS PERFORMED AT:[employer]/[facility] [place] [address]ZEGNWZQBRIAN APONTE MD,PHD 06/23/2024 6:45 AM EST 06/23/2024 6:45 AM EST Generic External Data Provider LAB BLOOD ORDERAB LES Final Result Performing Organization Address [facility] Co de Phone Number [facility] [address] [place] [address] [phone] * Hemoglobin A1c (06/23/2024 6:45 AM EST) Hemoglobin A1c 4.7 <6.0 % [facility] Comment:Hemoglobin A1C Refer ence Range Adults: 4.8 - 6.0 % Non diabetic: < 6.0 % Goal: < 7.0 %Additional Action Suggested: > 8.0 %Note: Hemoglobin A1c results are invalid for patients with abnormal amounts of HbF. Blood transfusions may impact the HbA1c concentration in the patient sample. Estimated Average Glucose 88 mg/dL [facility] Comment:eAG = Estimated ave rage glucose which is %A1C expressed asaverage glucose, using the formula of the Y3F-NlsrrtlQgbposf Glucose study (ADAG), Diabetes Care, Vol.31,#8,2007 06/23/2024 6:45 AM EST 06/23/2024 6:45 AM EST Generic External Data Provider LAB BLOOD ORDERAB LES Final Result Performing Organization Address [facility] Co wa Phone Number [facility] [address] [place] [address] [phone] * Ferritin (06/23/2024 6:45 AM EST) Pathologist [facility] Ferritin 60 10 - 250 ng/mL [facility] 06/23/2024 6:45 AM EST 06/23/2024 6:45 AM EST Generic External Data Provider LAB BLOOD ORDERAB LES Final Result Performing Organization Address [facility] Phone Number [facility] [address] [place] [address] [phone] * (ABNORMAL) Lipid Panel, Standard (06/23/2024 6:45 AM EST) Pathologist [facility] Triglycerides 88 <150 mg/dL [facility] Comment:Desirable Triglyceri de: less than 150 mg/dLBorderline High Triglyceride 150-199 mg/dLHigh Triglyceride: 200-499 mg/dLVery High Triglyceride: greater than or equal to 5OO mg/dL Cholesterol 178 <200 mg/dL [facility] Comment:Desirable Cholestero l: less than 200 mg/dLBorderline High Cholesterol: 200-239 mg/dLHigh Cholesterol: greater than 239 mg/dL LDL Cholesterol Calculated 111(H) <100 mg/dL [facility] Comment:Desirable LDL: less than 100 mg/dLNear Optimal/Above Optimal LDL: 110- 129 mg/dLBorderline High LDL: 130-159 mg/dLHigh LDL: 160-189 mg/dLVery High LDL: greater than or equal to 190 mg/dL HDL Cholesterol 50 >40 mg/dL [facility] Comment:Desirable HDL: great er than 40 mg/dL Note: This HDL assay may give artificially low results in patients with liver disease. 06/23/2024 6:45 AM EST 06/23/2024 6:45 AM EST us Generic External Data Provider LAB BLOOD ORDERAB LES Final Result [facility] [address] [place] [address] [phone] * (ABNORMAL) Comprehensive Metabolic Panel (06/23/2024 6:45 AM EST) Sodium 141 135 - 145 mmol/L [facility] Potassium 4.0 3.3 - 5.1 mmol/L [facility] Chloride 111(H) 96 - 108 mmol/L [facility] Carbon Dioxide 24 22 - 29 mmol/L [facility] Anion Gap 10(L) 12 - 20 [facility] Urea Nitrogen (BUN) 15 9 - 16 mg/dL [facility] Creatinine, Serum 0.81 0.5 - 1.4 mg/dL [facility] Estimated Glomerular Filt Rate >60 [facility] Comment:Chronic Kidney Disea se: Estimated GFR < 60 mL/min/[id number] Kidney Disease: Estimated GFR < 15 mL/min/1.73m2 Glucose 76 60 - 115 mg/dL [facility] Calcium 8.6 8.4 - 10.2 mg/dL [facility] Bilirubin, Total 0.5 0.0 - 1.0 mg/dL [facility] Aspartate Amino Transferase 17 5 - 31 U/L [facility] Alanine Aminotransferase 13 0 - 31 U/L [facility] Total Protein 6.8 6.5 - 8.0 g/dL [facility] Albumin Level 3.7 3.5 - 5.0 g/dL [facility] Alkaline Phosphatase 44 39 - 117 U/L [facility] 06/23/2024 6:45 AM EST 06/23/2024 6:45 AM EST us Generic External Data Provider LAB BLOOD ORDERAB LES Final Result [facility] [address] [place] [phone] * BI Mammogram Screen w/ He w/ Implants Asael (06/06/2024 10:36 AM EST) Anatomical Region Laterality Modality Mammography 06/06/2024 10:3 6 AM EST Narrative 06/19/2024 10:04 AM EST ? [facility] [place] ? [address] ?[place] [address] ? Mammography Report ? Signed ? Patient: Velia Davis ?MR#: [id number] ?? [id number] ? : 1980 ?Acct:[id number] ? Age/Sex: 44 / F ?ADM Date: 12/21/24 ? Loc: HO.MAMMO ? Attending Dr: Kika Brasher CNM ? Ordering Physician: Kika Brasher CNM ?Results: 2Beni ?? gn Findings ? Date of Service: 06/06/24 ?Follow Up: 1 Year From Orig ?? inal Mammogram ? Procedure(s): MM tomosynthesis screen imp BI ?? Accession Number(s): [id number] ? cc: Shauna Wallace DO; Kika Brasher CNM ? EXAMINATION: ?? MM SCREENING DIGITAL BREAST TOMOSYNTHESIS, BILATERAL ? CLINICAL INFORMATION: ? Screening. Asymptomatic. ? COMPARISON: ?? Mammography: Comparison is made with relevant avialable priors. ? TECHNIQUE: ?? Digital mammography is performed in craniocaudal and mediolateral ?? oblique views along with computer-aided detection (CAD). Digital breast ?? tomosynthesis is performed in implant-displaced craniocaudal and ?? implant-displaced mediolateral oblique views along with computer-aided ?? detection (CAD). ? FINDINGS: ?? There are scattered areas of fibroglandular density (ACR BI-RADS breast ?? composition Category b). ?? Bilateral retropectoral silicone implants are normal-appearing. ?? There are no significant masses, abnormal calcifications, or other ?? abnormalities. ? MM/MM tomosynthesis screen imp BI ?? IMPRESSION: ?? There are no significant changes from prior study. ? ASSESSMENT: ? BI-RADS BI-RADS 2 - Benign Findings ? RECOMMENDATION: ?? Routine annual mammography screening. ? 1 year F/U ? This patient's information was entered into a reminder system with a ?? target due date for their next mammogram. ? Electronically signed by: ??Anju Freeman DO ??06/19/2024 10:01 AM EST ?? RP ? Dictated By: ?Anju Freeman DO ? Signed By: ?<Electronically signed by Anju Freeman, DO in OV> ? 06/19/24 1001 ? DD/ 1036 ? TD/TT: 12/21/24 1056 ? Sap Functional Analyst: ? Procedure Note Donotuseinterpreter, Image - 06/19/2024 [place] [facility] [address] [place], [place] [address] Mammography Report Signed Patient: Manuel Davis#: [id number] : 1980Acct:[id number] Age/Sex: 44 / FADM Date: 06/06/24 Loc: HO.MAMMO Attending Dr: Kika Brasher CNM Ordering Physician: Kika Brasheresults: 2Beni gn Findings Date of Service: 06/06/24Follow Up: 1 Year From Orig inal Mammogram Procedure(s): MM tomosynthesis screen imp BI Accession Number(s): [id number] cc: Shauna Wallace DO; Kika Brasher CNM EXAMINATION: MM SCREENING DIGITAL BREAST TOMOSYNTHESIS, BILATERAL CLINICAL INFORMATION: Screening. Asymptomatic. COMPARISON: Mammography: Comparison is made with relevant avialable priors. TECHNIQUE: Digital mammography is performed in craniocaudal and mediolateral oblique views along with computer-aided detection (CAD). Digital breast tomosynthesis is performed in implant-displaced craniocaudal and implant-displaced mediolateral oblique views along with computer-aided detection (CAD). FINDINGS: There are scattered areas of fibroglandular density (ACR BI-RADS breast composition Category b). Bilateral retropectoral silicone implants are normal-appearing. There are no significant masses, abnormal calcifications, or other abnormalities. MM/MM tomosynthesis screen imp BI IMPRESSION: There are no significant changes from prior study. ASSESSMENT: BI-RADS BI-RADS 2 - Benign Findings RECOMMENDATION: Routine annual mammography screening. 1 year F/U This patient's information was entered into a reminder system with a target due date for their next mammogram. Electronically signed by: Anju Freeman DO 06/19/2024 10:01 AM EST Dictated By: Anju Freeman DO Signed By: <Electronically signed by Anju Freeman DO in OV> 06/19/24 1001 DD/ 1036 TD/TT: 06/06/24 1056 Sap Functional Analyst: [facility] External Provider IMG BI PROCEDURES Final Result * Pap Smear (04/24/2024 12:00 AM EST) 04/24/2024 04/27/2024 9:3 0 AM EST Narrative [facility] - 04/29/2024 10:21 AM EST ----- ------- Name: Velia Davis ? Age/Sex: 44/F ? : 1980 Unit#: [id number] ?? Attend Dr: Kika Brasher CNM ?Re04/24/24 ?Status: DEP REF ? Location: .LAB ?Disch: ? ----- ------- SPEC : [id number] ?RECD: 04/27/24-929 ? STATUS: ??SOUT ? REQ NUM: [id number] ? GUALBERTO: 04/24/24-0000 ? SUBM DR: Kika Brasher CNM ? ENTERED: ??04/27/24 ?SP TYPE: Pap Smr ?OTHR DR: Shauna Wallace DO ? ORDERED: ??Pap Smear ? Interpretation ?? Satisfactory for evaluation. ?? Negative for intraepithelial lesion or malignancy. ?? Mild inflammation. ? HPV High Risk: ??Negative ? HPV Genotyping 16: ??Negative ?? HPV Genotyping 18: ??Negative ?Clinical Information LMP: No menses (IUD) Previous PAP test: Unknown date/findings ? Material Received ?? ThinPrep-Cervical Copies To: ?? Shauna Wallace DO ?? [facility] ?? [address] ?? [place] [address] ?? [phone] ?? Kika Brasher CNM ?? [facility] ?? [address] ?? [place] [address] ?? [phone] ----- ------- Signed (signature on file) SHONNA Uribe ([facility]) 04/29/24 1021 ? ----- ------- ? END OF REPORT ? us Generic External Data Provider LAB CYTOLOGY ORDE ANETTE Final Result [facility] [address] [place] [phone] * HIV 1/2 ANTIGEN/ANTIBODY,FOURTH GENERATION W/RFL (08/02/2021 1:25 PM EST) [facility] HIV-1/2 ANTIGEN AND ANTIBODIES, 4TH GENERATION W/ REFLEX NON-REACT JUSTA NON-REACT JUSTA [facility] Comment: HIV-1 antigen and HIV-1/HIV-2 antibodies were not detected. There is no laboratory evidence of HIV infection. ?? PLEASE NOTE: This information has been disclosed to you from records whose confidentiality may be protected by state law. ??If your state requires such protection, then the state law prohibits you from making any further disclosure of the information without the specific written consent of the person to whom it pertains, or as otherwise permitted by law. A general authorization for the release of medical or other information is NOT sufficient for this purpose. ? For additional information please refer to http://education.Asuragen.Xoopit/faq/DAD371 (This link is being provided for informational/ educational purposes only.) ? The performance of this assay has not been clinically validated in patients less than 2 years old. ?? 08/02/2021 1:25 PM EST us Shauna Wallace DO LAB BLOOD ORDERABLES Final R esult [facility] [address] [place] [address], * HEPATITIS C ANTIBODY RFLX (03/16/2020 1:25 PM EDT) HEPATITIS C ANTIBODY NONREACTIVE NONREACTIVE [facility] Comment: Antibodies to HCV not detected; does not exclude early acute HCV infection. 03/16/2020 1:25 PM EDT Shauna Wallace DO HISTORICAL/NON ORDERABLE LAB S Final Result Performing Organization Address [facility] Co de Phone Number [facility] [address] [place] [address], * HPV mRNA E6/E7 (09/23/2018 12:17 PM EDT) HPV mRNA E6/E7 Not Detected NOT DETECTED [facility] Comment: This test was performed using the APTIMA(R) HPV Assay ([employer] This assay detects E6/E7 viral messenger RNA (mRNA) from 14 high-risk HPV types (16,18,31,33,35,39,45,51, 52,56,58,59,66,68). For additional information please refer to: http://education.Birds Eye Systems/faq/PMH440o8 (This link is being provided for informational/ educational purposes only.) The analytical performance characteristics of this assay have been determined by [employer] [place], [place]. The modifications have not been cleared or approved by the FDA. This assay has been validated pursuant to the CLIA regulations and is used for clinical purposes. Test Performed by [employer], [employer] [place], [address] [place], [place] Brian Aponte M.D., Ph.D., Director of Laboratories , CLIA [id number] Please note: ??Effective 02/27/2016, HPV testing will be performed using [employer]'s APTIMA test which targets mRNA. Detecting mRNA instead of DNA, as in older methods, offers significant improvements in specificity. 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
== END 2024-07-31 09:10 | disposition home or self-care (01) ==
LOC: HO.US 09:09
PROVIDERS: PCP Family Medicine; Visit Provider Family Medicine
DX: K21.9 Gastro-esophageal reflux disease without esophagitis (principal)
CPT/HCPCS: 76700

== ENCOUNTER → 2024-07-31 09:11 | Outpatient (BNV) | payer BC, SELFPAY | PROVIDERS: PCP Family Medicine; Visit Provider Radiology Diagnostic Radiology | DX: K21.9 Gastro-esophageal reflux disease without esophagitis (principal); R11.0 Nausea | CPT/HCPCS: 76700 ==

== ENCOUNTER 2024-08-17 13:17 | Outpatient (REF) | payer BC, SELFPAY ==
[2024-08-17 14:58] LABS: Hematocrit 38.1 % (37.0-47.0); Hemoglobin 12.4 g/dl (12.0-16.0); Mean Corpuscular HGB Conc 32.5 g/dl (31.0-35.0); Mean Corpuscular Hemoglobin 27.3 pg (27.0-33.0); Mean Corpuscular Volume 83.9 fL (80.0-98.0); Mean Platelet Volume 10.7 fL (9.4-12.3); Platelet Count 213 X10*3/uL (160-400); Red Blood Count 4.54 X10*6/uL (4.20-5.50); Red Cell Distribution Width 12.9 % (11.0-16.0); White Blood Count 5.9 X10*3/uL (4.8-10.8)
[2024-08-17 15:47] LABS: TSH reflex Free T4 1.56 uIU/mL (0.32-4.0)
[2024-08-17 16:02] LABS: Folate 12.1 ng/mL (> or = 4.0); Vitamin B12 279 pg/mL (200-900)
--- OUTSIDE RECORDS SUMMARY | 2024-08-17 16:56 | XMS_ITS | Encounter Summary ---
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 Encounter Details Date Type Department Care Team (Late st Contact Info) Description 08/02/2022 Telephone [facility] ADULT DENTAL [address] [place], [place] [phone] Anton Forbes DDS [address] [place], [place] [phone] Appointment (Patient had to cancel appt for [...] Description 09/16/2024 2:00 PM EDT Office Visit [facility] ADULT DENTAL [address] [place] [address] Gaurav, Deb [address] [place] [address] documented as of this encounter Visit Diagnoses Not on filedocumented in this encounter Additional Health Concerns Assessment Noted Time PHQ-9 Depression Total Score: 0 07/26/19 23 11:44 AM EST documented as of this encounter Care Teams Grain Elevator Man Relationship Specialty Start Date End Date Shauna Wallace DO [address] [place] [address] PCP - General Family Medicine 12/01/19 documented as of this encounter
--- OUTSIDE RECORDS SUMMARY | 2024-08-17 16:56 | XMS_ITS | Encounter Summary ---
Author Organization [facility] Address [address] [place] [address] [address] [address] Care Team Providers Care Frame Feeder Name Role Phone Shauna Wallace DO Primary Care Provider [phone] Encounter Details Date Type Department Care Team (Latest Contact Info) Description 03/26/2019 Abstract [facility] CONVERSIONS Dental, Provider, DDS Social History Tobacco [...] [facility] [address] [place] [address] Gaurav, Deb [address] [place] [address] documented as of this encounter Visit Diagnoses Not on filedocumented in this encounter Care Teams Frame Feeder Relationship Specialty Start Date End Date Shauna Wallace DO [address] [place] [address] PCP - General Family Medicine 12/01/19 documented as of this encounter
--- OUTSIDE RECORDS SUMMARY | 2024-08-17 16:56 | XMS_ITS | Encounter Summary ---
Author Organization [employer] Address [address] [place] [address] Care Team Providers Care Wire Coater Name Role Phone Shauna Wallace DO Primary Care Provider [phone] Reason for Referral * Medications - Closed Specialty Diagnoses / Procedures Referred By Riaz t Referred To Contact Diagnoses BMI 35.0-35.9,adult Shauna aWllace DO [address] [place] [address] Phone: tel: fax: Referral ID Status Reason Start Date Expiration Date Visits Re quested Visits Authorized [id number] Closed 1 1 * Medications - Closed Specialty Diagnoses / Procedures Referred By Riaz gavin Referred To Contact Diagnoses BMI 35.0-35.9,adult Shauna Wallace DO [address] [place] [address] Phone: tel: fax: Referral ID Status Reason Start Date Expiration Date Visits Re quested Visits Authorized [id number] Closed 1 1 Encounter Details Date Type Department Care Team (Late st Contact Info) Description 08/17/2024 11:45 AM EST Office Visit [facility] MEDICINE [address] [place] [address] Shauna Wallace DO [address] [place], [place] [phone] Single pelvic kidney (Primary Dx); Change in [...] Description 09/16/2024 2:00 PM EDT Office Visit [facility] ADULT DENTAL [address] [place] [address] Gaurav, Deb [address] [place] [address] documented as of this encounter Visit Diagnoses Diagnosis Single pelvic kidney- Primary Change in bowel habits Other symptoms involving digestive system Right ear pain Unspecified otalgia BMI 35.0-35.9,adult documented in this encounter Additional Health Concerns Assessment Noted Time PHQ-9 Depression Total Score: 0 07/26/19 23 11:44 AM EST documented as of this encounter Care Teams Wire Coater Relationship Specialty Start Date End Date Shauna Wallace DO [address] [place] [address] PCP - General Family Medicine 12/01/19 documented as of this encounter
--- OUTSIDE RECORDS SUMMARY | 2024-08-17 16:56 | XMS_ITS | Encounter Summary ---
Author Organization [employer] Address [address] [facility] 7t [place] [address] Care Team Providers Care Or First Assist Registered Nurse Name Role Phone PaigeShauna woo Primary Care Provider + [phone] Encounter Details Date Type Department Care Team [...] Description 09/16/2024 2:00 PM EDT Office Visit [facility] ADULT DENTAL [address] [place] [address] Gaurav, Deb [address] [place] [address] documented as of this encounter Visit Diagnoses Not on filedocumented in this encounter Additional Health Concerns Assessment Noted Time PHQ-9 Depression Total Score: 0 07/26/19 23 11:44 AM EST documented as of this encounter Care Teams Or First Assist Registered Nurse Relationship Specialty Start Date End Date Shauna Wallace DO [address] [place] [address] PCP - General Family Medicine 12/01/19 documented as of this encounter
--- OUTSIDE RECORDS SUMMARY | 2024-08-17 16:56 | XMS_ITS | Encounter Summary ---
Author Organization [employer] Address [address] [place] [address] [address] [place] [address] Care Team Providers Care Roller Print Tender Name Role Phone PaigeShauna woo DO Primary Care Provider + [phone] Reason for Visit * Reason Comments Annual Exam Encounter Details Date Type Department Care Team ([facility] st Contact Info) Description 07/24/2024 10:45 AM EST Office Visit [facility] MEDICINE [address] [place], [place] [phone] Marjan Ritchie MD [address] [place], [place] [phone] Encounter for preventive health examination (Primary Dx); [...] she is advised to schedule with her automotive quality manager within 6 months. Lipids/FBS: UTD, next one [...] bedtime for muscle spasms. 60 tablet 1 iifczwbfgo-ylxlqwyfqavad-ajcekbst 50-325-40 MG tablet TAKE 1 TABLET BY [...] 1:42 PM EST Associated Problem(s): Rheumatoid arthritis ([facility]) Unclear diagnosis, most recent labs normal. Off [...] she is advised to schedule with her automotive quality manager within 6 months. Lipids/FBS: UTD, next one due 2025 Vaccinations: declined COVID and Flu, Adult IZ are UTD. Dental visit: UTD next one due 12/2024 documented in this encounter Plan of Treatment Upcoming Encounters Date Type Department Care Team (Late st Contact Info) Description 09/16/2024 2:00 PM EDT Office Visit [facility] ADULT DENTAL [address] [place] [address] Deb Nolasco [address] [place] [address] documented as of this encounter Visit Diagnoses Diagnosis Encounter for preventive health examination- Primary Rheumatoid arthritis, involving unspecified site, unspecified whether rheumatoid factor present ([facility]) Mild intermittent asthma without complication Class 1 [...] documented as of this encounter Care Teams Roller Print Tender Relationship Specialty Start Date End Date Shauna Wallace DO [address] [place] [address] PCP - General Family Medicine 12/01/19 documented as of this encounter
--- OUTSIDE RECORDS SUMMARY | 2024-08-17 16:56 | XMS_ITS | Encounter Summary ---
Author Organization [employer] Address [address] [facility] 7t [place] [address] Care Team Providers Care Polymerization Kettle Operator Name Role Phone PaigeShauna woo Primary Care Provider + [phone] Encounter Details Date Type Department Care Team ([facility] st Contact Info) Description 08/17/2024 Orders Only [...] Description 09/16/2024 2:00 PM EDT Office Visit [facility] ADULT DENTAL [address] [place], [place] [phone] Gaurav, Deb [address] [place], [place] [phone] documented as of this encounter Procedures Procedure Name Priority Date/Time Associated Diagnosis Comments VITAMIN B12/FOLATE, SERUM PANEL Routine 08/17/2024 2:40 PM EST TSH W/REFLEX TO FT4 Routine 08/17/2024 2 :40 PM EST CBC Routine 08/17/2024 2:40 PM EST documented in this encounter Results * Vitamin B12 (Cobalamin) and Folate Panel, Serum (08/17/2024 2:40 PM EST) Vitamin B12 279 200 - 900 pg/mL [facility] Comment:NORMAL 200-900 PG/ML INDETERMINATE 160-199 PG/ML DEFICIENT < 160 PG/ML Folate 12.1 > or = 4.0 ng/mL [facility] Comment:Reference Values:> o r = 4.0 ng/mL< 4.0 ng/mL suggests folate deficiency Methotrexate, aminopterin and folinic acid(leucovorin) are chemotherapeutic agents whose molecularstructures are similar to folate; therefore, the Architectfolate assay cannot be used for patients using these drugs. 08/17/2024 2:40 PM EST 08/17/2024 2:40 PM EST us Generic External Data Provider LAB BLOOD ORDERAB LES Final Result Performing Organization Address City/[facility]/ZIP Co de Phone Number [facility] [address] [place] [address] [phone] * TSH with Reflex to Free T4 (08/17/2024 2:40 PM EST) Pathologist [facility] TSH reflex Free T4 1.56 0.32 - 4.0 uIU/mL [facility] 08/17/2024 2:40 PM EST 08/17/2024 2:40 PM EST Generic External Data Provider LAB BLOOD ORDERAB LES Final Result Performing Organization Address [facility] Co de Phone Number [facility] [address] [place] [phone] * CBC (08/17/2024 2:40 PM EST) Pathologist [facility] White Blood Count 5.9 4.8 - 10.8 X10*3/uL [facility] Red Blood Count 4.54 4.20 - 5.50 X10*6/uL [facility] Hemoglobin 12.4 12.0 - 16.0 g/dl [facility] Hematocrit 38.1 37.0 - 47.0 % [facility] Mean Corpuscular Volume 83.9 80.0 - 98.0 fL [facility] Mean Corpuscular Hemoglobin 27.3 27.0 - 33.0 pg [facility] Mean Corpuscular HGB Conc 32.5 31.0 - 35.0 g/dl [facility] Red Cell Distribution Width 12.9 11.0 - 16.0 % [facility] Platelet Count 213 160 - 400 X10*3/uL [facility] Mean Platelet Volume 10.7 9.4 - 12.3 fL [facility] NRBC Pct Auto 0.0 0.0 - 0.2 /100WBC [facility] NRBC Abs Auto 0.000 0.0 - 0.012 X10*3/uL [facility] 08/17/2024 2:40 PM EST 08/17/2024 2:40 PM EST us Generic External Data Provider LAB BLOOD ORDERAB LES Final Result [facility] [address] [place] [phone] [phone] documented in this encounter Visit Diagnoses Not on filedocumented in this encounter Additional Health Concerns Assessment Noted Time PHQ-9 Depression Total Score: 0 07/26/19 23 11:44 AM EST documented as of this encounter Care Teams Polymerization Kettle Operator Relationship Specialty Start Date End Date Shauna Wallace DO [address] [place] [address] PCP - General Family Medicine 12/01/19 documented as of this encounter
--- OUTSIDE RECORDS SUMMARY | 2024-08-17 16:56 | XMS_ITS | Encounter Summary ---
Author Organization [employer] Address [address] [facility] 7t [place] [address] Care Team Providers Care Electrician Apprentice Name Role Phone PaigeShauna woo Primary Care Provider [phone] Encounter Details Date Type Department Care Team [...] Description 09/16/2024 2:00 PM EDT Office Visit [facility] ADULT DENTAL [address] [place] [address] Gaurav, Deb [address] [place] [address] documented as of this encounter Visit Diagnoses Not on filedocumented in this encounter Additional Health Concerns Assessment Noted Time PHQ-9 Depression Total Score: 0 07/26/19 23 11:44 AM EST documented as of this encounter Care Teams Electrician Apprentice Relationship Specialty Start Date End Date Shauna Wallace DO [address] [place] [address] PCP - General Family Medicine 12/01/19 documented as of this encounter
--- OUTSIDE RECORDS SUMMARY | 2024-08-17 16:56 | XMS_ITS | Clinical Summary ---
Author Organization [facility] [facility] Address [address] [place] [address] [address] [place] [address] Care Team Providers Care Manager Strategic Sourcing Name Role Phone PaigeShauna woo Primary Care [...] she is advised to schedule with her shear assembler within 6 months. Lipids/FBS: UTD, next one [...] Description 08/17/2024 11:45 AM EST Office Visit [facility] [address] [place] [address] Shauna Wallace DO Single pelvic kidney (Primary Dx); Change in bowel habits; Right ear pain; BMI 35.0-35.9,adult 08/17/2024 Orders Only GENERIC EXTERNAL DATA DEPARTMENT Provider, Generic External Data 08/17/2024 Travel 07/24/2024 10:45 AM EST Office Visit [address] [address] Marjan Ritchie MD Encounter for preventive health examination (Primary Dx); Rheumatoid arthritis, involving unspecified site, unspecified whether rheumatoid factor present ([facility]); Mild intermittent asthma without complication; Class 1 obesity without serious comorbidity with body mass index (BMI) of 34.0 to 34.9 in adult, unspecified obesity type; Hyperchloremia; Dietary counseling; Exercise counseling 07/24/2024 Travel 07/13/2024 Patient Outreach [address] [address] Shauna Wallace DO Pre-visit Planning (Pre visit planning LVM ) 06/25/2024 3:00 PM EST Office Visit [facility] [address] [place] [address] Anton Forbes DDS Dental caries on smooth surface limited to enamel (Primary Dx) 06/25/2024 Travel 06/23/2024 Telephone [facility] [address] [place] [address] Shauna Wallace DO Lab Orders 06/23/2024 Orders Only GENERIC EXTERNAL DATA DEPARTMENT Provider, Generic External Data 06/22/2024 10:15 AM EST Telemedicine [facility] [address] [place] [address] Shauna Wallace, Change in bowel habits (Primary Dx); Gastroesophageal reflux disease, unspecified whether esophagitis present; Shakiness; Nonintractable chronic migraine 06/22/2024 Travel 06/15/2024 Telephone [facility] [address] [place] [address] Shauna Wallace DO 06/12/2024 Telephone [facility] [address] [place] [address] Shauna Wallace DO insurance 06/06/2024 Orders Only [facility] External Provider, [facility] 05/25/2024 2:00 PM EST Office Visit [facility] [address] [place] [address] Gaurav Deb Tipped teeth (Primary Dx); Dental [...] Office Visit [facility] [address] [place] [address] Gaurav, Deb [address] [place] [address] Health Maintenance Due Date Last Done Comments [...] EST CBC Routine 08/17/2024 2:40 PM EST US [...] Periodontal disease Full PROPHYLAXIS - ADULT Routine 024 2:00 PM EST Dental calculus Periodontal disease [...] Recently Relevant to Health Maintenance Results * Vitamin B12 (Cobalamin) and Folate Panel, Serum (08/17/2024 2:40 PM EST) Only the most recent of2 resultswithin the time period is included. Vitamin B12 279 200 - 900 pg/mL [facility] Comment:NORMAL 200-900 PG/ML INDETERMINATE 160-199 PG/ML DEFICIENT < 160 PG/ML Folate 12.1 > or = 4.0 ng/mL [facility] Comment:Reference Values:> o r = 4.0 ng/mL< 4.0 ng/mL suggests folate deficiency Methotrexate, aminopterin and folinic acid(leucovorin) are chemotherapeutic agents whose molecularstructures are similar to folate; therefore, the Architectfolate assay cannot be used for patients using these drugs. 08/17/2024 2:40 PM EST 08/17/2024 2:40 PM EST Generic External Data Provider LAB BLOOD ORDERAB LES Final Result Performing Organization Address [facility]/ZIP Co de Phone Number [facility] [address] [place] [phone] * TSH with Reflex to Free T4 (08/17/2024 2:40 PM EST) Only the most recent of2 resultswithin the time period is included. [facility] TSH reflex Free T4 1.56 0.32 - 4.0 uIU/mL [facility] 08/17/2024 2:40 PM EST 08/17/2024 2:40 PM EST Generic External Data Provider LAB BLOOD ORDERAB LES Final Result Performing Organization Address [facility] Co de Phone Number [facility] [address] [place] [phone] * CBC (08/17/2024 2:40 PM EST) [facility] White Blood Count 5.9 4.8 - 10.8 X10*3/uL [facility] Red Blood Count 4.54 4.20 - 5.50 X10*6/uL [facility] Hemoglobin 12.4 12.0 - 16.0 g/dl [facility] Hematocrit 38.1 37.0 - 47.0 % [facility] Mean Corpuscular Volume 83.9 80.0 - 98.0 fL [facility] Mean Corpuscular Hemoglobin 27.3 27.0 - 33.0 pg [facility] Mean Corpuscular HGB Conc 32.5 31.0 - 35.0 g/dl [facility] Red Cell Distribution Width 12.9 11.0 - 16.0 % [facility] Platelet Count 213 160 - 400 X10*3/uL [facility] Mean Platelet Volume 10.7 9.4 - 12.3 fL [facility] NRBC Pct Auto 0.0 0.0 - 0.2 /100WBC [facility] NRBC Abs Auto 0.000 0.0 - 0.012 X10*3/uL [facility] 08/17/2024 2:40 PM EST 08/17/2024 2:40 PM EST us Generic External Data Provider LAB BLOOD ORDERAB LES Final Result [facility] [address] [place] [phone] [phone] * US Abdomen Complete (08/01/2024 7:43 AM EST) Anatomical Region Laterality Modality Abdomen Ultrasound 08/01/2024 7:43 AM EST Narrative 08/01/2024 7:45 AM EST ? [facility] ?[address] ?[place] [address] ? Ultrasound Report ? Signed ? Patient: Velia Davis ?MR#: [id number] ?? [id number] ? : 1980 ?Acct:[id number] ? Age/Sex: 44 / F ?ADM Date: 07/31/24 ? Loc: HO.US ? Attending Dr: Shauna Wallace DO ? Ordering Physician: Shauna Wallace DO ?? Date of Service: 07/31/24 ?? Procedure(s): US abdomen complete ?? Accession Number(s): [id number] ? cc: Shauna Wallace DO ? CLINICAL [...] ? DD/ 2 ? TD/TT: 08/01/24742 ? Associate Team Physician: ? Procedure Note Trino Shukla - 08/01/2024 [place] [address] Ultrasound Report Signed Patient: Manuel Davis#: [id number] : 1980Acct:[id number] Age/Sex: 44 / FADM Date: 07/31/24 Loc: HO.US Attending Dr: Shauna Wallace DO Ordering Physician: Shauna Wallace DO Date of Service: 07/31/24 Procedure(s): US abdomen complete Accession Number(s): [id number] cc: Shauna Wallace DO CLINICAL HISTORY: reflux [...] in OV> 08/01/24 0745 DD/ TD/TT: 08/01/2443 Associate Team Physician: Shauna Wallace DO IMG US PROCEDURES Edited Res ult - Final * C-Peptide (07/09/2024 7:11 AM EST) Only the most recent of2 resultswithin the time period is included. [facility] [address] C-Peptide 2.09 0.80 - 3.85 ng/mL [facility] Comment:THIS TEST WAS PERFOR MED AT:[facility] [place] [id number] BARRY MD Blood Venous blood specimen / Unknown 07/09/2024 7:11 AM EST 07/09/2024 7:11 AM EST Shauna Wallace DO LAB BLOOD ORDERABLES Final R esult [facility] [address] [place] [address] [phone] * HCV RNA BY PCR, QN RFX JENNIFER (06/23/2024 2:36 PM EST) [facility] [address] HCV RNA PCR QN <15 NOT DETECTED NOT DETECTED IU/mL [facility] HCV RNA PCR QN <1.18 NOT DETECTED NOT DETECTED Log IU/mL [facility] HCV RNA COMMENT SEE NOTE [facility] Comment:For additional infor froilan, please refer [email or web address]/faq/[email or web address](This link is being provided for informational/Educational purposes only.)THIS TEST WAS PERFORMED AT:[facility] [address] [address]DPEEZRICKI BARRY MD HCV RNA GENOTYPE,[facility] Comment:Test not indicated. 06/23/2024 2:36 PM EST 06/23/2024 2:36 PM EST [facility] LAB BLOOD ORDERABLES Final R esult Performing Organization Address [facility] Co de Phone Number [facility] [address] [place] [phone] * HIV-1 RNA, Quantitative, Real-Time PCR with Reflex to Genotype (RTI, PI, Integrase) (06/23/2024 2:36 PM EST) HIV RNA PCR Qn Copies Not Detected Copies/mL [facility] HIV RNA PCR Qn Log Copies Not Detected Log cps/mL [facility] Comment:Reference Range: Not Detected copies/mL Not Detected Log copies/mLThe test was performed using Real-Time Polymerase ChainReaction.Reportable Range: 20 copies/mL to 10,000,000 copies/mL(1.30 Log copies/mL to 7.00 Log copies/mL).THIS TEST WAS PERFORMED AT:[facility]/[id number] [place] [address]PNOHUCXBRIAN APONTE MD,PHD HIV-1 Genotype Progressive [facility] HIV 1 Genotype [facility] Comment:Test not indicated. 06/23/2024 2:36 PM EST 06/23/2024 2:36 PM EST [facility] LAB BLOOD ORDERABLES Final R esult Performing Organization Address City/[facility] Co de Phone Number [facility] [address] [place] [phone] * Beta-Hydroxybutyrate (06/23/2024 2:36 PM EST) Beta-Hydroxybut yrate 0.09 0.02 - 0.27 mmol/L [facility] Blood Venous blood specimen / Unknown 06/23/2024 2:36 PM EST 06/23/2024 2:36 PM EST Shauna Wallace DO LAB BLOOD ORDERABLES Final R esult Performing Organization Address City/[facility]/ZIP Co de Phone Number [facility] [address] [place] [phone] * Hepatitis A Antibody, Total (06/23/2024 2:36 PM EST) Hepatitis A Antibody IgG Nonreactive Nonreactive [facility] Blood Venous blood specimen / Unknown 06/23/2024 2:36 PM EST 06/23/2024 3:21 PM EST Shauna Wallace DO LAB BLOOD ORDERABLES Final R esult Performing Organization Address City/[facility]/ZIP Co de Phone Number [facility] [address] [place] [phone] * Hepatitis B surface antigen, EIA (06/23/2024 2:36 PM EST) Pathologist [facility] Hepatitis B Surface Ag Negative Negative [facility] Blood Venous blood specimen / Unknown 06/23/2024 2:36 PM EST 06/23/2024 2:36 PM EST Shauna Wallace DO LAB BLOOD ORDERABLES Final R esult Performing Organization Address City/[facility]/ZIP Co de Phone Number [facility] [address] [place] [phone] * Hepatitis B Core Antibody, Total (06/23/2024 2:36 PM EST) Hepatitis B Core Antibody Nonreactive Nonreactive [facility] Blood Venous blood specimen / Unknown 06/23/2024 2:36 PM EST 06/23/2024 2:36 PM EST Shauna Wallace DO LAB BLOOD ORDERABLES Final R esult Performing Organization Address [facility]/ZIP Co de Phone Number [facility] [address] [place] [phone] * RPR (Monitor) with Reflex to??Titer (06/23/2024 2:36 PM EST) Pathologist [facility] RPR (Monitor) w/Refl Titer NON-REACTI VE NON-REACT JUSTA [facility] Comment:THIS TEST WAS PERFOR MED AT:[facility] [place] [id number] BARRY MD Rapid Plasma Reagin Ab Titer TNP [facility] Blood Venous blood specimen / Unknown 06/23/2024 2:36 PM EST 06/23/2024 2:36 PM EST Shauna Wallace DO LAB BLOOD ORDERABLES Final R esult Performing Organization Address [facility] Co de Phone Number [facility] [address] [place] [address] [phone] * Hepatitis B Surface Antibody, Qualitative (06/23/2024 2:36 PM EST) ~Hepatitis B Surface Antibody REACTIVE Nonreactive [facility] Comment:REACTIVE: > 11.99 mI U/mL Blood Venous blood specimen / Unknown 06/23/2024 2:36 PM EST 06/23/2024 2:36 PM EST Shauna Wallace DO LAB BLOOD ORDERABLES Final R esult Performing Organization Address City/[facility]/ZIP Co de Phone Number [facility] [address] [place] [address] [phone] * T4, Free (06/23/2024 2:36 PM EST) [facility] Free T4 (Free Thyroxine) 0.97 0.71 - 1.85 ng/dL [facility] Blood Venous blood specimen / Unknown 06/23/2024 2:36 PM EST 06/23/2024 2:36 PM EST [facility] LAB BLOOD ORDERABLES Final R esult [facility] [address] [place] [phone] * Bilirubin, Direct (06/23/2024 2:36 PM EST) [facility] Bilirubin, Direct <0.1 0.0 - 0.5 mg/dL [facility] 06/23/2024 2:36 PM EST 06/23/2024 2:36 PM EST [facility] LAB BLOOD ORDERABLES Final R esult Performing Organization Address City/[facility]/ZIP Co de Phone Number [facility] [address] [place] [phone] * Chlamydia/N. Gonorrhoeae RNA, TMA, Urogenitial (06/23/2024 1:56 PM EST) [facility] [address] CT PCR NOT DETECTED Not Detect. [facility] Comment:A not detected test result [...] psychologicalconsequences. NG PCR NOT DETECTED Not Detect. [facility] Comment:A not detected test result [...] PM EST 06/23/2024 2:40 PM EST Narrative [facility] - 06/23/2024 4:21 PM EST Urine us Shauna Wallace DO LAB MICROBIOLOGY - GENERAL O RDERABLES Final Result [facility] [address] [place] [phone] * Stool - Gastrointestinal panel (06/23/2024 7:26 AM EST) Campylobacter Not Detected Not Detect. [facility] Plesiomonas shigelloides Not Detected Not Detect. [facility] Salmonella Not Detected Not Detect. [facility] Vibrio Not Detected Not Detect. [facility] Vibrio cholerae Not Detected Not Detect. [facility] YERSINIA ENTEROCOLITICA Not Detected Not Detect. [facility] Enteroaggregative E. coli (EAEC) Not Detected Not Detect. [facility] Enteropathogenic E. coli (EPEC) Not Detected Not Detect. [facility] Enterotoxigenic E. coli (ETEC) lt/st Not Detected Not Detect. [facility] Shiga-like toxin-producing E. coli (STEC) stx1/stx2 Not Detected Not Detect. [facility] E coli O157 Not applicable Not Detect. [facility] Comment:E. coli containing t he O157 antigen are a subset ofShiga-like toxin- producing E. coli (STEC). Shigella/Enteroinvasive E. coli (EIEC) Not Detected Not Detect. [facility] Cryptosporidium Not Detected Not Detect. [facility] Cyclospora cayetanensis Not Detected Not Detect. [facility] Entamoeba histolytica Not Detected Not Detect. [facility] Giardia lamblia Not Detected Not Detect. [facility] Adenovirus F 40/41 Not Detected Not Detect. [facility] Astrovirus Not Detected Not Detect. [facility] Norovirus GI/GII Not Detected Not Detect. [facility] Rotavirus A Not Detected Not Detect. [facility] Sapovirus Not Detected Not Detect. [facility] Comment: All results must be [...] MICROBIOLOGY - GENERAL O RDERABLES Final Result [facility] [address] [place] [phone] * Ova and Parasites (06/23/2024 7:26 AM EST) Ova and Parasite Trichrome SEE NOTE [facility] Comment: ??OVA AND PARASITES, CONC AND PERM SMEAR ??Micro Number: ?[id number] ??Test Status: ? Final ??Specimen Source: ?? [...] For additional information, please refer to ? https://[employer].Auditude/faq/HNZ279 ? (This link is being provided for informational/ ? educational purposes only.)THIS TEST WAS PERFORMED AT:[facility] [address] [place], [place] ??[phone] JUDSON,MD Stool Rectal contents / Unknown 06/23/2024 7:26 AM EST 06/25/2024 8:54 AM EST Shauna Wallace DO LAB MICROBIOLOGY - GENERAL O RDERABLES Final Result Performing Organization Address [facility] Co de Phone Number [facility] [address] [place] [phone] * (ABNORMAL) Vitamin D, 25-Hydroxy, Total, Immunoassay (06/23/2024 6:45 AM EST) Vitamin D 25-OH Total 20.8(L) >30 ng/mL [facility] Comment:Health Based Referen ce Values*< 20 ng/mL Easpofhur68-27 ng/mL Insufficient> 30 ng/mL Sufficient*Nathanael MURO. N [...] ORDERAB LES Final Result Performing Organization Address [facility]/ZIP Co de Phone Number [facility] [address] [place] [phone] * CBC auto differential (06/23/2024 6:45 AM EST) White Blood Count 5.8 4.8 - 10.8 X10*3/uL [facility] Red Blood Count 4.58 4.20 - 5.50 X10*6/uL [facility] Hemoglobin 12.4 12.0 - 16.0 g/dl [facility] Hematocrit 38.4 37.0 - 47.0 % [facility] Mean Corpuscular Volume 83.8 80.0 - 98.0 fL [facility] Mean Corpuscular Hemoglobin 27.1 27.0 - 33.0 pg [facility] Mean Corpuscular HGB Conc 32.3 31.0 - 35.0 g/dl [facility] Red Cell Distribution Width 12.9 11.0 - 16.0 % [facility] Platelet Count 199 160 - 400 X10*3/uL [facility] Mean Platelet Volume 10.3 9.4 - 12.3 fL [facility] Neutrophils Percent Auto 58.9 45 - 73 % [facility] Imm Gran Pct Auto 0.2 0.0 - 0.4 % [facility] Lymphocytes Percent Auto 32.2 20 - 40 % [facility] Monocytes Percent Auto 7.0 2 - 11 % [facility] Eosinophils Percent Auto 1.2 0 - 4 % [facility] Basophils Percent Auto 0.5 0 - 2 % [facility] NRBC Pct Auto 0.0 0.0 - 0.2 /100WBC [facility] Neutrophils Absolute Auto 3.4 2.0 - 8.3 x10*3/uL [facility] Imm Gran Abs Auto 0.01 0.00 - 0.03 X10*3/uL [facility] Lymphocytes Absolute Auto 1.9 1.2 - 4.9 X10*3/uL [facility] Monocytes Absolute Auto 0.4 0.1 - 1.2 X10*3/uL [facility] Eosinophils Absolute Auto 0.1 0.0 - 0.4 X10*3/uL [facility] Basophils Absolute Auto 0.0 0.0 - 0.2 X10*3/uL [facility] NRBC Abs Auto 0.000 0.0 - 0.012 X10*3/uL [facility] 06/23/2024 6:45 AM EST 06/23/2024 6:45 AM EST Generic External Data Provider LAB BLOOD ORDERAB LES Final Result Performing Organization Address [facility] Phone Number [facility] [address] [place] [phone] * Iron And Total Iron Binding Capacity (06/23/2024 6:45 AM EST) Iron 118 30 - 160 mcg/dL [facility] Total Iron Binding Capacity 269 228 - 428 mcg/dL [facility] Percent Iron Saturation 44 15 - 50 % [facility] Unsaturated Iron Binding 151 ug/dL [facility] 06/23/2024 6:45 AM EST 06/23/2024 6:45 AM EST Generic External Data Provider LAB BLOOD ORDERAB LES Final Result Performing Organization Address [facility] [address] [place] [phone] * Insulin (06/23/2024 6:45 AM EST) Insulin 5 2 - 29 uU/mL [facility] Comment:This test was perfor med [...] ORDERAB LES Final Result Performing Organization Address [facility] Co de Phone Number [facility] [address] [place] [phone] * Zinc (06/23/2024 6:45 AM EST) Zinc 62 60 - 130 mcg/dL [facility] Comment:This test was develo ped and its analytical performancecharacteristics have been determined by [employer] [place], [place]. It hasnot been cleared or approved by the .S. Food and DrugAdministration. This assay has been validated pursuantto the CLIA regulations and is used for clinicalpurposes.THIS TEST WAS PERFORMED AT:[employer] [id number] [place] [id number] APONTE MD,PHD 06/23/2024 6:45 AM EST 06/23/2024 6:45 AM EST [facility] External Data Provider LAB BLOOD ORDERAB LES Final Result Performing Organization Address [facility] de Phone Number [facility] [address] [place] [phone] * Vitamin A (06/23/2024 6:45 AM EST) Vitamin A (Retinol) 50 38 - 98 mcg/dL [facility] Comment:Vitamin supplementat ion within 24 hours prior toblood draw may affect the accuracy of the results.This test was developed and its analytical performancecharacteristics have been determined by [place] It hasnot been cleared or approved by the U.S. Food and DrugAdministration. This assay has been validated pursuantto the CLIA regulations and is used for clinicalpurposes.THIS TEST WAS PERFORMED AT:[employer] [id number] [place] [id number] APONTE MD,PHD 06/23/2024 6:45 AM EST 06/23/2024 6:45 AM EST us Generic External Data Provider LAB BLOOD ORDERAB LES Final Result Performing Organization Address [facility] de Phone Number [facility] [address] [place] [address] [phone] * C-reactive Protein (06/23/2024 6:45 AM EST) C Reactive Protein <0.10 < or = 0.50 mg/dL [facility] 06/23/2024 6:45 AM EST 06/23/2024 6:45 AM EST Generic External Data Provider LAB BLOOD ORDERAB LES Final Result Performing Organization Address [facility] Number [facility] [address] [place] [address] [phone] * Vitamin B1 (06/23/2024 6:45 AM EST) Vitamin B1 9 8 - 30 nmol/L [facility] Comment:Vitamin supplementat ion within 24 hours prior toblood draw may affect the accuracy of the results.This test was developed and its analytical performancecharacteristics have been determined by [employer] [place], [place]. It hasnot been cleared or approved by the U.S. Food and DrugAdministration. This assay has been validated pursuantto the CLIA regulations and is used for clinicalpurposes.THIS TEST WAS PERFORMED AT:[id number] [place] [address]YGMOHVKBRIAN APOTNE MD,PHD 06/23/2024 6:45 AM EST 06/23/2024 6:45 AM EST Generic External Data Provider LAB BLOOD ORDERAB LES Final Result Performing Organization Address [facility] de Phone Number [facility] [address] [place] [address] [phone] * Hemoglobin A1c (06/23/2024 6:45 AM EST) Hemoglobin A1c 4.7 <6.0 % [facility] Comment:Hemoglobin A1C Refer ence Range Adults: 4.8 - 6.0 % Non diabetic: < 6.0 % Goal: < 7.0 %Additional Action Suggested: > 8.0 %Note: Hemoglobin A1c results are invalid for patients with abnormal amounts of HbF. Blood transfusions may impact the HbA1c concentration in the patient sample. Estimated Average Glucose 88 mg/dL [facility] Comment:eAG = Estimated ave rage glucose which is %A1C expressed asaverage glucose, using the formula of the L6D-NgvbiddCwaggqs Glucose study (ADAG), Diabetes Care, Vol.31,#8,Jan. 2007 06/23/2024 6:45 AM EST 06/23/2024 6:45 AM EST us Generic External Data Provider LAB BLOOD ORDERAB LES Final Result Performing Organization Address City/[facility]/ZIP Co de Phone Number [facility] [address] [place] [phone] * Ferritin (06/23/2024 6:45 AM EST) Pathologist [facility] Ferritin 60 10 - 250 ng/mL [facility] 06/23/2024 6:45 AM EST 06/23/2024 6:45 AM EST us Generic External Data Provider LAB BLOOD ORDERAB LES Final Result Performing Organization Address [facility]/ZIP Co de Phone Number [facility] [address] [place] [phone] * (ABNORMAL) Lipid Panel, Standard (06/23/2024 6:45 AM EST) Triglycerides 88 <150 mg/dL [facility] Comment:Desirable Triglyceri de: less than 150 mg/dLBorderline High Triglyceride 150-199 mg/dLHigh Triglyceride: 200-499 mg/dLVery High Triglyceride: greater than or equal to 5OO mg/dL Cholesterol 178 <200 mg/dL [facility] Comment:Desirable Cholestero l: less than 200 mg/dLBorderline High Cholesterol: 200-239 mg/dLHigh Cholesterol: greater than 239 mg/dL LDL Cholesterol Calculated 111(H) <100 mg/dL [facility] Comment:Desirable LDL: less than 100 mg/dLNear Optimal/Above Optimal LDL: 110- 129 mg/dLBorderline High LDL: 130-159 mg/dLHigh LDL: 160-189 mg/dLVery High LDL: greater than or equal to 190 mg/dL HDL Cholesterol 50 >40 mg/dL [facility] Comment:Desirable HDL: great er than 40 mg/dL Note: This HDL assay may give artificially low results in patients with liver disease. 06/23/2024 6:45 AM EST 06/23/2024 6:45 AM EST us Generic External Data Provider LAB BLOOD ORDERAB LES Final Result [facility] [address] [place], [place] [phone] * (ABNORMAL) Comprehensive Metabolic Panel (06/23/2024 6:45 AM EST) Sodium 141 135 - 145 mmol/L [facility] Potassium 4.0 3.3 - 5.1 mmol/L [facility] Chloride 111(H) 96 - 108 mmol/L [facility] Carbon Dioxide 24 22 - 29 mmol/L [facility] Anion Gap 10(L) 12 - 20 [facility] Urea Nitrogen (BUN) 15 9 - 16 mg/dL [facility] Creatinine, Serum 0.81 0.5 - 1.4 mg/dL [facility] Estimated Glomerular Filt Rate >60 [facility] Comment:Chronic Kidney Disea se: Estimated GFR < 60 mL/min/1.47u6Lzmvey Kidney Disease: Estimated GFR < 15 mL/min/1.73m2 Glucose 76 60 - 115 mg/dL [facility] Calcium 8.6 8.4 - 10.2 mg/dL [facility] Bilirubin, Total 0.5 0.0 - 1.0 mg/dL [facility] Aspartate Amino Transferase 17 5 - 31 U/L [facility] Alanine Aminotransferase 13 0 - 31 U/L [facility] Total Protein 6.8 6.5 - 8.0 g/dL [facility] Albumin Level 3.7 3.5 - 5.0 g/dL [facility] Alkaline Phosphatase 44 39 - 117 U/L [facility] 06/23/2024 6:45 AM EST 06/23/2024 6:45 AM EST us Generic External Data Provider LAB BLOOD ORDERAB LES Final Result [facility] [address] [facility] [place] [phone] * BI Mammogram Screen w/ He w/ Implants Asael (06/06/2024 10:36 AM EST) Anatomical Region Laterality Modality Mammography 06/06/2024 10:3 6 AM EST Narrative 06/19/2024 10:04 AM EST ? [facility] [place] ? [address] ?[place] [address] ? Mammography Report ? Signed ? Patient: Davis,Velia ?MR#: [id number] ?? [id number] ? : 1980 ?Acct:[id number] ? Age/Sex: 44 / F ?ADM Date: 12/21/24 ? Loc: HO.MAMMO ? Attending Dr: Kika Brasher CNM ? Ordering Physician: Kika Brasher CNM ?Results: 2Beni ?? gn Findings ? Date of Service: 06/06/24 ?Follow Up: 1 Year From Orig ?? inal Mammogram ? Procedure(s): MM tomosynthesis screen imp BI ?? Accession Number(s): [id number] ? cc: Shauna Wallace DO; Kika Brasher [...] DD/ 1036 ? TD/TT: 06/06/24 1056 ? Associate Team Physician: ? Procedure Note Donotuseinterpreter, Image - 06/19/[address] [place] [facility] [address] [place], [place] [address] Mammography Report Signed Patient: Manuel Davis#: [id number] : 1980Acct:[id number] Age/Sex: 44 / FADM Date: 06/06/24 Loc: HO.MAMMO Attending Dr: Kika Brasher CNM Ordering Physician: Kika Brasheresults: 2Beni gn Findings Date of Service: 06/06/24Follow Up: 1 Year From Orig inal Mammogram Procedure(s): MM tomosynthesis screen imp BI Accession Number(s): [id number] cc: Shauna Wallace DO; Kika Brasher CNM [...] by: Anju Freeman DO 06/19/2024 10:01 AM [facility] Dictated By: Anju Freeman DO Signed By: <Electronically signed by Anju Freeman DO in OV> 06/19/24 1001 DD/ 1036 TD/TT: 06/06/24 1056 Associate Team Physician: [facility] External Provider IMG BI PROCEDURES Final Result * Pap Smear (04/24/2024 12:00 AM EST) 04/24/2024 04/27/2024 9:3 0 AM EST Narrative [facility] - 04/29/2024 10:21 AM EST ----- ------- Name: Velia Davis ? Age/Sex: 44/F ? : 1980 Unit#: [id number] ?? Attend Dr: Kika Brasher CNM ?Re04/24/24 ?Status: DEP REF ? Location: .LAB ?Disch: ? ----- ------- SPEC : [id number] ?RECD: 04/27/24 ? STATUS: ??SOUT ? REQ NUM: [id number] ? GUALBERTO: 04/24/24-0000 ? SUBM DR: Kika [...] Copies To: ?? Shauna Wallace DO ?? [facility] ?? [address] ?? [place] [address] ?? [phone] ?? Kika Brasher CNM ?? [facility] ?? [address] ?? [place] [address] ?? [phone] ----- ------- Signed (signature on file) SHONNA Uribe ([facility]) 04/29/24 1021 ? ----- ------- ? END OF REPORT ? us Generic External Data Provider LAB CYTOLOGY DAVID CHEEMA Final Result [facility] [address] [place] [phone] * HIV 1/2 ANTIGEN/ANTIBODY,FOURTH GENERATION W/RFL (08/02/2021 1:25 PM EST) [facility] [address] HIV-1/2 ANTIGEN AND ANTIBODIES, 4TH GENERATION W/ REFLEX NON-REACT JUSTA NON-REACT JUSTA [facility] Comment: HIV-1 antigen and [...] ? For additional information please refer to http://education.AlmondNet.ScoreStreak/faq/OSK277 (This link is being provided for informational/ educational purposes only.) ? The performance of this assay has not been clinically validated in patients less than 2 years old. ?? 08/02/2021 1:25 PM EST Shauna Rodrigo SERRANO LAB BLOOD ORDERABLES Final R esult Performing Organization Address [facility]/ZIP Co de Phone Number [facility] [address] [place] [address], * HEPATITIS C ANTIBODY RFLX (03/16/2020 1:25 PM EDT) HEPATITIS C ANTIBODY NONREACTIVE NONREACTIVE [facility] Comment: Antibodies to HCV not detected; does not exclude early acute HCV infection. 03/16/2020 1:25 PM EDT Shauna Rodrigo SERRANO HISTORICAL/NON ORDERABLE LAB S Final Result Performing Organization Address [facility] de Phone Number [facility] [address] [place] [address], * HPV mRNA E6/E7 (09/23/2018 12:17 PM EDT) HPV mRNA E6/E7 Not Detected NOT DETECTED [facility] Comment: This test was performed using the APTIMA(R) HPV Assay ([employer] This assay detects E6/E7 viral messenger RNA (mRNA) from 14 high-risk HPV types (16,18,31,33,35,39,45,51, 52,56,58,59,66,68). For additional information please refer to: http://education.Auditude/faq/QDC725z6 (This link is being provided for informational/ educational purposes only.) The analytical performance characteristics of this assay have been determined by [employer] [place], [place]. The modifications have not been cleared or approved by the FDA. This assay has been validated pursuant to the CLIA regulations and is used for clinical purposes. Test Performed by [employer], [employer] [place], [address] [place] [address] Brian Aponte M.D., Ph.D., Director of [employer] , CLIA [id number] Please note: ??Effective 02/27/2016, HPV testing will be performed using [employer]'s APTIMA test which targets mRNA. Detecting mRNA instead of DNA, as in older methods, offers significant improvements in specificity. 09/23/2018 12:1 7 PM EDT us Historical Provider MD HISTORICAL/NON ORDERABLE LABS Final Result [facility] [address] from Last 3 Months or Most Recently Relevant to Health Maintenance Insurance [employer] PPO DENTAL - [facility] Care Teams Manager Strategic Sourcing Relationship Specialty Start Date End Date Shauna Wallace DO [address] [place] [phone] PCP - General Family Medicine 12/01/19
[2024-08-18 21:14] LABS: Transglutaminase IgA <1.0 U/mL
[2024-08-19 08:08] LABS: Immunoglobulin A 246 mg/dL (47-310)
== END 2024-08-17 13:18 | disposition home or self-care (01) ==
LOC: HO.LAB 13:17
PROVIDERS: PCP Family Medicine; Visit Provider Internal Medicine
DX: K52.9 Noninfective gastroenteritis and colitis, unspecified (principal); Z78.9 Other specified health status
CPT/HCPCS: 82607; 82746; 82784; 84443; 85027; 86364

== ENCOUNTER 2024-08-17 13:17 | Outpatient (AMB) | payer BC, SELFPAY ==
--- NOTE | 2024-08-17 13:19 | A.OFFVIS_ITS ---
Vital Signs 08/17/24 13:23 Height 5 ft 3 in Weight 194 lb 0.108 oz BMI 34.4 BP 138/80 Blood Pressure Location Lt brachial Position Sitting Pulse 78 Intake Visit Reasons: Bowel changes, GERD Intake Note: Velia presents in the office as a new patient for changes in bowel habits and GERD. CC: She states that she used to have constipation because she had a surgery a a child but now she is having diarrhea almost every day. She notices that it could be when she wakes up or even in the afternoon. Allergies adalimumab [From HUMIRA] Allergy (Unknown, Verified 08/17/24 13:24) RASH infliximab [From REMICADE] Allergy (Unknown, Verified 08/17/24 13:24) ANAPHYLAXIS suture [SUTURE] Allergy (Unknown, Verified 08/17/24 13:24) LOCAL RXN- INFECTION IN 2004 [employer] Allergy (Unknown, Uncoded 08/17/24 13:24) anaphylaxis HPI Comments Details: 44 y.o F with PMH LSG 2019, obesity, who is here for chronic diarrhea. Reports had longstanding hx of constipation until March 2024 shortly after she returned from [facility]. Had sudden onset of frequent loose watery BMs assoc with bloating and borborygmi but no abd pain, N,V. No blood in stool. Traveled to [place] right before the diarrhea started. BF also had similar sx which went away within 1-2 weeks. No new meds, OTC/CAM. Labs reviewed: Laboratory Tests 06/23/24 06/23/24 06/23/24 06:45 07:26 14:36 WBC 5.8 Hgb 12.4 Hct 38.4 Plt Count 199 Eos % (Auto) 1.2 Sodium 141 Chloride 111 H Creatinine 0.81 Free T4 0.97 Zinc 62 RPR NON-REACTIVE Hep Bs Antigen Negative HIV-1 RNA copies/mL Not Detected O & P Trichrome Stain SEE NOTE PFSH Medical History Asthma Surgical History H/O breast augmentation H/O abdominoplasty H/O knee surgery H/O bilateral breast reduction surgery History of sleeve gastrectomy Family History Paternal Grandfather Prostate cancer Maternal Grandfather Prostate cancer Father No problems noted. Mother High cholesterol Hyperthelia Hypertension Sister No problems noted. Daughter PCOS (polycystic ovarian syndrome) Social History Alcohol intake: current Patient Tobacco Use Status: Never used Tobacco Sexual orientation: Straight/Heterosexual Gender identity: Female Female Reproductive History Menstrual Age of Menarche: 12 Review of Systems Const All systems reviewed & are unremarkable except as noted in HPI and below Physical Exam Vital Signs: Last Vital Signs Pulse 78 08/17/24 13:23 BP 138/80 08/17/24 13:23 BMI result Body Mass Index 34.4 No apparent distress Nonicteric Abdomen soft, nondistended Alert and oriented x3, normal gait Assessment & Plan Assessment & Plan (1) Chronic diarrhea: Code(s): K52.9 - Noninfective gastroenteritis and colitis, unspecified Category: Medical (2) History of recent travel: Code(s): Z78.9 - Other specified health status Category: Social Hx Plan DDx include parasitic infection, tropical sprue, celiac, IBD, SIBO, microscopic colitis. Pertinent temporality with travel to [place] Plan: - Labs as below - EGD/colo to be booked for small and large bowel bx - PEG Rxed and instructions reviewed - Low threshold to tx as tropical sprue if small bowel bx with IELs within base of vili and increased eos Follow up 4 weeks Orders: Orders TSH reflex Free T4 Today K52.9 - Noninfective gastroenteritis and colitis, unspecified Immunoglobulin A Today K52.9 - Noninfective gastroenteritis and colitis, un specified Ova and Parasite 08/19/24 K52.9 - Noninfective gastroenteritis and colitis, unspecified Giardia Ag Stool EIA Today K52.9 - Noninfective gastroenteritis and colitis, unspecified Fecal Fat Qualitative Today K52.9 - Noninfective gastroenteritis and colitis, unspecified Vitamin B12 and Folate Today K52.9 - Noninfective gastroenteritis and colitis, unspecified Complete Blood Count no Diff Today K52.9 - Noninfective gastroenteritis and colitis, unspecified Transglutaminase IgA Today K52.9 - Noninfective gastroenteritis and colitis, unspecified Calprotectin, Fecal Today K52.9 - Noninfective gastroenteritis and colitis, unspecified Ova and Parasite Today K52.9 - Noninfective gastroenteritis and colitis, unspecified Ova and Parasite 08/18/24 K52.9 - Noninfective gastroenteritis and colitis, unspecified Giardia Ag Stool EIA 08/18/24 K52.9 - Noninfective gastroenteritis and colitis, unspecified Cyclospora & Isospora Stool Today K52.9 - Noninfective gastroenteritis and colitis, unspecified Cryptosporidium Ag DFA Today K52.9 - Noninfective gastroenteritis and colitis, unspecified Pancreatic Elastase-1 Today K52.9 - Noninfective gastroenteritis and colitis, unspecified Medications: New peg 3350-electrolytes 236-22.74-6.74 -5.86 gram (Golytely) as per split prep instructions, until fecal effluent is clear 240 mL PO Q10M 4,000 mL 0RF colonoscopy Coding Level of Care Code New Pt Level 4 (74075) Complex EM visit Add On G2211 Diagnoses Chronic diarrhea K52.9 History of recent travel Z78.9
[2024-08-17 13:23] VITALS: BP 138/80; PULSE 78; BMI 34.4
--- OUTSIDE RECORDS SUMMARY | 2024-08-17 15:33 | XMS_ITS | Encounter Summary ---
Author Organization [employer] Address [address] [place] [address] Care Team Providers Care Housekeeper Manager Name Role Phone PaigeShauna woo Primary Care Provider + [phone] Encounter Details Date Type Department Care Team ([facility] st Contact Info) Description 08/17/2024 Orders Only GENERIC EXTERNAL DATA DEPARTMENT Provider, Generic External Data Social History Tobacco Use Types Packs/Day Years [...] Description 09/16/2024 2:00 PM EDT Office Visit [facility] [address], [place] [phone] Gaurav, Deb [address] [place] [address] documented as of this encounter Procedures Procedure Name Priority Date/Time Associated Diagnosis Comments CBC Routine 08/17/2024 2:40 PM EST documented in this encounter Results * CBC (08/17/2024 2:40 PM EST) White Blood Count 5.9 4.8 - 10.8 X10*3/uL [facility] Red Blood Count 4.54 4.20 - 5.50 X10*6/uL [facility] Hemoglobin 12.4 12.0 - 16.0 g/dl [facility] Hematocrit 38.1 37.0 - 47.0 % [facility] Mean Corpuscular Volume 83.9 80.0 - 98.0 fL [facility] Mean Corpuscular Hemoglobin 27.3 27.0 - 33.0 pg [facility] Mean Corpuscular HGB Conc 32.5 31.0 - 35.0 g/dl [facility] Red Cell Distribution Width 12.9 11.0 - 16.0 % [facility] Platelet Count 213 160 - 400 X10*3/uL [facility] Mean Platelet Volume 10.7 9.4 - 12.3 fL [facility] NRBC Pct Auto 0.0 0.0 - 0.2 /100WBC [facility] NRBC Abs Auto 0.000 0.0 - 0.012 X10*3/uL [facility] 08/17/2024 2:40 PM EST 08/17/2024 2:40 PM EST us Generic External Data Provider LAB BLOOD ORDERAB LES Final Result [facility] [address] [place] [address] [phone] documented in this encounter Visit Diagnoses Not on filedocumented in this encounter Additional Health Concerns Assessment Noted Time PHQ-9 Depression Total Score: 0 07/26/19 23 11:44 AM EST documented as of this encounter Care Teams Housekeeper Manager Relationship Specialty Start Date End Date Shauna Wallace DO [address] [place] [address] PCP - General Family Medicine 12/01/19 documented as of this encounter
--- OUTSIDE RECORDS SUMMARY | 2024-08-17 15:33 | XMS_ITS | Clinical Summary ---
Author Organization [employer] Address [address] [place] [address] [address] [place] [address] Care Team Providers Care Billet Heater Name Role Phone PaigeShauna woo Primary Care Provider Allergies Active Allergy Reactions Criticality Noted Date Comments Adalimumab 07/26/2022 Infliximab 07/26/2022 Sumatriptan 07/26/2022 chest tightness Medications butalbital-abigail taminophen-caf feine 50-325-40 MG tabletIndicati ons:Nonintract [...] 18 g 1 07/24/19 25 026 Active fluticasone (Flonase) 50 MCG/ACT nasal spray Administer 2 sprays into each nostril Once per day. Shake gently. Before first use, prime pump. After use, clean tip and replace cap. 16 g 3 08/18/19 25 026 Active naproxen (Naprosyn) 500 MG tablet Take 1 tablet (500 mg) by mouth if needed in the morning and at bedtime for mild pain. 30 tablet 1 08/18/19 25 026 Active Tirzepatide-We ight Management (Zepbound) 2.5 MG/0.5ML solution auto-injectorI ndications:BMI 35.0-35.9,adul t Inject 0.5 mL (2.5 mg) under the skin 1 (one) time per week. 2 mL 08/18/19 Active phentermine 15 MG capsuleIndicat ions:BMI 35.0-35.9,adul t Take 1 capsule (15 mg) by mouth before breakfast. 30 capsule 08/18/19 25 025 Active pseudoephedrin e ER (Sudafed-12 Hour) 120 MG 12 hr tablet Take 1 tablet (120 mg) by mouth every 12 (twelve) hours. Do not crush, chew, or split. 20 tablet 08/18/19 25 026 Active baclofen (Lioresal) 10 MG tabletIndicati ons:Neck pain Take 1 tablet (10 mg) by mouth if needed in the morning, at noon, and at bedtime for muscle spasms. 60 tablet 1 07/26/19 23 025 Discontinued albuterol 108 (90 Base) MCG/ACT inhaler Inhale 2 puffs every 6 (six) hours if needed for wheezing. 18 g 1 10/10/19 24 025 Discontinued(Re order (will not trigger notification to Pharmacy)) pseudoephedrin e ER (Sudafed-12 Hour) 120 MG 12 hr tablet Take 1 tablet (120 mg) by mouth every 12 (twelve) hours. Do not crush, chew, or split. 60 tablet 11 08/18/19 25 025 Discontinued Active Problems Problem Noted Date Diagnosed Date Chronic gastroesophageal reflux disease 08/18/19 25 BMI 35.0-35.9,adult 07/24/2024 Assessment & Plan (07/24/2024 1:47 PM [...] exercise. FU with PCP and consider medication. Dental caries on smooth surface limited to ename l 06/25/2024 Tipped teeth 05/25/2024 Periodontal disease 04/18/2023 Mild intermittent asthma 07/26/2022 Assessment & Plan (07/24/2024 1:45 PM EST): Controlled, advised to use albuterol prn. Declined COVID and Flu immunizations. Status post laparoscopic sleeve gastrectomy 02/2023 Chronic migraine 12/26/2016 Rheumatoid arthritis 12/26/2016 Assessment & Plan (07/24/2024 1:42 PM EST): Unclear diagnosis, most recent labs normal. Off treatment since 2018. Resolved Problems Problem Noted Date Diagnosed Date Resolved Date Encounter for preventive health examination 07/24/2024 08/17/2024 Assessment & Plan (07/24/2024 11:27 AM EST): Discussed with patient re increase fresh fruit and vegetable intake. Counseled re moderate exercise as tolerated, up to 20min/d Patient feels safe at home. PAP smear: UTD next due 2028 Mammogram: UTD next 05/2025 Eye exam: reportedly UTD, she is advised to schedule with her body designer within 6 months. Lipids/FBS: UTD, next one due 2025 Vaccinations: declined COVID and Flu, Adult IZ are UTD. Dental visit: UTD next one due 12/2024 Hyperchloremia 07/24/2024 08/17/2024 Assessment & Plan (07/24/2024 1:49 PM EST): Most likely related to intermittent diarrhea. Advised regarding proper hydration with SRO. Caries of cervical margin of tooth 04/23/2023 06/22/2024 Dental calculus 04/18/2023 06/22/2024 Morbid obesity 07/26/2022 07/26/2022 Overweight 07/26/2022 08/17/2024 Encounters Date Type Department Care Team Description 08/17/2024 11:45 AM EST Office Visit [facility] [address] [place] [address] Shauna Wallace DO Single pelvic kidney (Primary Dx); Change in bowel habits; Right ear pain; BMI 35.0-35.9,adult 08/17/2024 Orders Only GENERIC EXTERNAL DATA DEPARTMENT Provider, Generic External Data 08/17/2024 Travel 07/24/2024 10:45 AM EST Office Visit [address] [address] Marjan Ritchie MD Encounter for preventive health examination (Primary Dx); Rheumatoid arthritis, involving unspecified site, unspecified whether rheumatoid factor present ([facility]); Mild intermittent asthma without complication; Class 1 obesity without serious comorbidity with body mass index (BMI) of 34.0 to 34.9 in adult, unspecified obesity type; Hyperchloremia; Dietary counseling; Exercise counseling 07/24/2024 Travel 07/13/2024 Patient Outreach [address] [address] Shauna Wallace DO Pre-visit Planning (Pre visit planning LVM ) 06/25/2024 3:00 PM EST Office Visit [facility] [address] [place] [address] Anton Forbes DDS Dental caries on smooth surface limited to enamel (Primary Dx) 06/25/2024 Travel 06/23/2024 Telephone [facility] [address] [place] [address] Shauna Wallace DO Lab Orders 06/23/2024 Orders Only GENERIC EXTERNAL DATA DEPARTMENT Provider, Generic External Data 06/22/2024 10:15 AM EST Telemedicine [facility] [address] [place] [address] Shauna Wallace, Change in bowel habits (Primary Dx); Gastroesophageal reflux disease, unspecified whether esophagitis present; Shakiness; Nonintractable chronic migraine 06/22/2024 Travel 06/15/2024 Telephone [facility] [address] [place] [address] Shauna Wallace DO 06/12/2024 Telephone [facility] [address] [place] [address] Shauna Wallace DO insurance 06/06/2024 Orders Only [facility] External Provider, [facility] 05/25/2024 2:00 PM EST Office Visit [facility] [address] [place] [address] Gaurav Deb Tipped teeth (Primary Dx); Dental calculus; Periodontal [...] Sign Reading Time Taken Comments Blood Pressure 126/78 08/17/2024 11:49 AM EST Pulse 76 08/17/2024 11:49 AM EST Temperature 36.8 ??C (98.3 ??F) 08/17/2024 11:[address] Respiratory Rate 19 08/17/2024 11:49 AM EST Oxygen Saturation 99% 08/17/2024 11:49 AM EST Inhaled Oxygen Concentration - - Weight 89.8 kg (198 lb) 08/17/2024 11:49 AM EST Height 160 cm (5' 3 ) 08/17/2024 11:49 AM EST Body Mass Index 35.07 08/17/2024 11:49 AM EST Plan of Treatment Upcoming Encounters Date Type Department Care Team (Late st Contact Info) Description 09/16/2024 2:00 PM EDT Office Visit [facility] [address] [place] [address] Gaurav, Deb [address] [place] [address] Health Maintenance Due Date Last Done Comments Family Planning (PISQ) 1997 Hepatitis B Vaccines (1 of 3 - 19+ 3-dose series) 2001 Pneumococcal Vaccine: Pediatrics (0 to 5 Years) and At-Risk Patients (6 to 49) Years) (2 of 2 - PCV) 12/10/2020 12/11/2019 COVID-19 Vaccine (3 - 2023- season) 2024 07/28/2020, 06/30/2020 Dental Oral Exam 11/24/2024 05/25/2024, 10/09/2022 Dental Prophylaxis 11/24/2024 05/25/2024, 1 06/18/2022, 10/18/2022 Dental X-Ray: Bitewings 05/26/2025 05/25/2024, 04/11 Mammogram 06/06/2025 06/06/2024 Depression Screening 07/24/2025 07/24/2024, 07/26/19 23 SDOH Screening 07/24/2025 07/24/2024 Alcohol/Substance Use Screening 08/17/2025 08/17/2024 Tobacco Screening 08/17/2025 08/17/2024 Dental X-Ray: Full Mouth 10/11/2025 10/10/2022 DTaP/Tdap/Td [...] Comments CBC Routine 08/17/2024 2:40 PM EST US ABDOMEN COMPLETE Routine 08/01/2024 7 :43 AM EST Gastroesophageal reflux disease, unspecified whether esophagitis present C-PEPTIDE Routine 07/09/2024 7:11 AM EST Elevated [...] AM EST 25 DEBRA COMPOSITE FILLING Routine 12/09/2 024 12:00 AM EST 26 DEBRA COMPOSITE FILLING Routine 12:00 AM EST 27 DEBRA COMPOSITE FILLING Routine 12:00 AM EST 11 DEBRA COMPOSITE FILLING Routine 12:00 AM EST 10 DEBRA COMPOSITE FILLING Routine 12:00 AM EST 9 DEBRA COMPOSITE FILLING Routine 05/25/20 24 12:00 AM EST 8 DEBRA COMPOSITE FILLING Routine 05/25/20 24 12:00 AM EST 7 DEBRA COMPOSITE FILLING Routine 05/25/20 24 12:00 AM EST 6 DEBRA COMPOSITE FILLING Routine 05/25/20 24 12:00 AM EST 15 O AMALGAM FILLING Routine 05/25/2024 12:00 AM EST PAP SMEAR Routine 04/24/2024 12:00 AM EST HIV 1/2 ANTIGEN/ANTIBODY, FOURTH GENERATION W/RFL Routine 08/02/2021 1:25 PM EST ZZZ HISTORICAL HEPATITIS C ANTIBODY RFLX Routine 03/16/2020 1:25 PM EDT ZZ HISTORICAL HPV MRNA E6/E7 Routine 09/23/2018 12:17 PM EDT from Last 3 Months or Most Recently Relevant to Health Maintenance Results * CBC (08/17/2024 2:40 PM EST) White Blood Count 5.9 4.8 - 10.8 X10*3/uL [facility] Red Blood Count 4.54 4.20 - 5.50 X10*6/uL [facility] Hemoglobin 12.4 12.0 - 16.0 g/dl [facility] Hematocrit 38.1 37.0 - 47.0 % [facility] Mean Corpuscular Volume 83.9 80.0 - 98.0 fL [facility] Mean Corpuscular Hemoglobin 27.3 27.0 - 33.0 pg [facility] Mean Corpuscular HGB Conc 32.5 31.0 - 35.0 g/dl [facility] Red Cell Distribution Width 12.9 11.0 - 16.0 % [facility] Platelet Count 213 160 - 400 X10*3/uL [facility] Mean Platelet Volume 10.7 9.4 - 12.3 fL [facility] NRBC Pct Auto 0.0 0.0 - 0.2 /100WBC [facility] NRBC Abs Auto 0.000 0.0 - 0.012 X10*3/uL [facility] 08/17/2024 2:40 PM EST 08/17/2024 2:40 PM EST us Generic External Data Provider LAB BLOOD ORDERAB LES Final Result [facility] [address] [place] [address] [phone] * US Abdomen Complete (08/01/2024 7:43 AM EST) Anatomical Region Laterality Modality Abdomen Ultrasound 08/01/2024 7:43 AM EST Narrative 08/01/2024 7:45 AM EST ? [facility] ?[address] ?[place] [address] ? Ultrasound Report ? Signed ? Patient: Velia Davis ?MR#: [id number] ?? [id number] ? : 1980 ?Acct:[id number] ? Age/Sex: 44 / F ?ADM Date: 07/31/24 ? Loc: HO.US ? Attending Dr: Shauna Wallace DO ? Ordering Physician: Shauna Wallace DO ?? Date of Service: 07/31/24 ?? Procedure(s): US abdomen complete ?? Accession Number(s): [id number] ? cc: Shauna Wallace DO ? CLINICAL HISTORY: reflux and nausea ? US abdomen complete with duplex and color Doppler ? Comparison: None ? Findings: ?? The visualized pancreas, aorta, and inferior vena cava are unremarkable. ? Liver normal size and echotexture. Right lobe 14.0 cm length. No focal ?? hepatic masses. ?? Common duct 3.0 mm diameter. ?? Physiologic distention of the gallbladder. No gallstones or sludge. No ?? gallbladder wall thickening. No pericholecystic fluid. No sonographic ?? Alcazar sign. ?? Main portal vein antegrade. ? Right kidney normal size, 12.2 cm in length. Normal cortical width and ?? echotexture. No solid or cystic renal masses. No nephrolithiasis or ?? hydronephrosis. ?? Left kidney not identified in the left renal fossa. ? Spleen measures 10.6 cm. No splenic masses. ? No ascites. No lymphadenopathy. ? Impression: ?? 1. No evidence of cholelithiasis or cholecystitis. ?? 2. A left kidney was not identified in the left renal fossa clinical ?? correlation. ? This document has been electronically signed by: Bruce Gomez MD on ?? 08/01/2024 07:43:57 ? Dictated By: ?Bruce Gomez MD ? Signed By: ?<Electronically signed by Bruce Gomez MD in OV> ?08/01/24 0745 ? DD/ 2 ? TD/TT: 08/01/24742 ? Clearance Diver: ? Procedure Note Trino Shukla - 08/01/2024 [place] [address] Ultrasound Report Signed Patient: Velia DavisMR#: [id number] : 1980Acct:[id number] Age/Sex: 44 / FADM Date: 07/31/24 Loc: HO.US Attending Dr: Shauna Wallace DO Ordering Physician: Shauna Wallace DO Date of Service: 07/31/24 Procedure(s): US abdomen complete Accession Number(s): [id number] cc: Shauna Wallace DO CLINICAL HISTORY: reflux and nausea US abdomen complete with duplex and color Doppler Comparison: None Findings: The visualized pancreas, aorta, and inferior vena cava are unremarkable. Liver normal size and echotexture. Right lobe 14.0 cm length. No focal hepatic masses. Common duct 3.0 mm diameter. Physiologic distention of the gallbladder. No gallstones or sludge. No gallbladder wall thickening. No pericholecystic fluid. No sonographic Alcazar sign. Main portal vein antegrade. Right kidney normal size, 12.2 cm in length. Normal cortical width and echotexture. No solid or cystic renal masses. No nephrolithiasis or hydronephrosis. Left kidney not identified in the left renal fossa. Spleen measures 10.6 cm. No splenic masses. No ascites. No lymphadenopathy. Impression: 1. No evidence of cholelithiasis or cholecystitis. 2. A left kidney was not identified in the left renal fossa clinical correlation. This document has been electronically signed by: Bruce Gomez MD on 08/01/2024 07:43:57 Dictated By: Bruce Gomez MD Signed By: <Electronically signed by Bruce Gomez MD in OV> 08/01/24 0745 DD/ TD/TT: 08/01/2443 Clearance Diver: Shauna Wallace DO IMG US PROCEDURES Edited Res ult - Final * C-Peptide (07/09/2024 7:11 AM EST) Only the most recent of2 resultswithin the time period is included. [facility] C-Peptide 2.09 0.80 - 3.85 ng/mL [facility] Comment:THIS TEST WAS PERFOR MED AT:[employer] [address] [id number] BARRY MD Blood Venous blood specimen / Unknown 07/09/2024 7:11 AM EST 07/09/2024 7:11 AM EST Shauna Wallace DO LAB BLOOD ORDERABLES Final R esult [facility] [address] [place] [phone] * HCV RNA BY PCR, QN RFX JENNIFER (06/23/2024 2:36 PM EST) [facility] HCV RNA PCR QN <15 NOT DETECTED NOT DETECTED IU/mL [facility] HCV RNA PCR QN <1.18 NOT DETECTED NOT DETECTED Log IU/mL [facility] HCV RNA COMMENT SEE NOTE [facility] Comment:For additional infor mation, please refer tohttp://education.[email or web address]/faq/VXN75a7(This link is being provided for informational/Educational purposes only.)THIS TEST WAS PERFORMED AT:[employer] [address] [id number] BARRY MD HCV RNA GENOTYPE,[facility] Comment:Test not indicated. 06/23/2024 2:36 PM EST 06/23/2024 2:36 PM EST [facility] BLOOD ORDERABLES Final R esult Performing Organization Address [facility] Co de Phone Number [facility] [address] [place] [phone] * HIV-1 RNA, Quantitative, Real-Time PCR with Reflex to Genotype (RTI, PI, Integrase) (06/23/2024 2:36 PM EST) HIV RNA PCR Qn Copies Not Detected Copies/mL [facility] HIV RNA PCR Qn Log Copies Not Detected Log cps/mL [facility] Comment:Reference Range: Not Detected copies/mL Not Detected Log copies/mLThe test was performed using Real-Time Polymerase ChainReaction.Reportable Range: 20 copies/mL to 10,000,000 copies/mL(1.30 Log copies/mL to 7.00 Log copies/mL).THIS TEST WAS PERFORMED AT:[employer]/[id number] [place] [address]BLNSVVPBRIAN APONTE MD,PHD HIV-1 Genotype Progressive [facility] HIV 1 Genotype [facility] Comment:Test not indicated. 06/23/2024 2:36 PM EST 06/23/2024 2:36 PM EST [facility] LAB BLOOD ORDERABLES Final R esult Performing Organization Address City/[facility]/ZIP Co de Phone Number [facility] [address] [place] [phone] * Beta-Hydroxybutyrate (06/23/2024 2:36 PM EST) Beta-Hydroxybut yrate 0.09 0.02 - 0.27 mmol/L [facility] Blood Venous blood specimen / Unknown 06/23/2024 2:36 PM EST 06/23/2024 2:36 PM EST Shauna Wallace DO LAB BLOOD ORDERABLES Final R esult Performing Organization Address City/[facility]/ZIP Co de Phone Number [facility] [address] [place] [phone] * Hepatitis A Antibody, Total (06/23/2024 2:36 PM EST) Hepatitis A Antibody IgG Nonreactive Nonreactive [facility] Blood Venous blood specimen / Unknown 06/23/2024 2:36 PM EST 06/23/2024 3:21 PM EST Shauna Wallace DO LAB BLOOD ORDERABLES Final R esult Performing Organization Address City/[facility]/ZIP Co de Phone Number [facility] [address] [place] [phone] * Hepatitis B surface antigen, EIA (06/23/2024 2:36 PM EST) Hepatitis B Surface Ag Negative Negative [facility] Blood Venous blood specimen / Unknown 06/23/2024 2:36 PM EST 06/23/2024 2:36 PM EST Shauna Wallace DO LAB BLOOD ORDERABLES Final R esult Performing Organization Address [facility]/ZIP Co de Phone Number [facility] [address] [place] [phone] * Hepatitis B Core Antibody, Total (06/23/2024 2:36 PM EST) Hepatitis B Core Antibody Nonreactive Nonreactive [facility] Blood Venous blood specimen / Unknown 06/23/2024 2:36 PM EST 06/23/2024 2:36 PM EST Shauna Wallace DO LAB BLOOD ORDERABLES Final R esult Performing Organization Address [facility] Co de Phone Number [facility] [address] [place] [phone] * RPR (Monitor) with Reflex to??Titer (06/23/2024 2:36 PM EST) Pathologist [facility] RPR (Monitor) w/Refl Titer NON-REACTI VE NON-REACT JUSTA [facility] Comment:THIS TEST WAS PERFOR MED AT:[employer] [place] [id number] BARRY MD Rapid Plasma Reagin Ab Titer TNP [facility] Blood Venous blood specimen / Unknown 06/23/2024 2:36 PM EST 06/23/2024 2:36 PM EST Result [facility] Shauna Wallace DO LAB BLOOD ORDERABLES Final R esult Performing Organization Address [facility] Co de Phone Number [facility] [address] [place] [phone] * Hepatitis B Surface Antibody, Qualitative (06/23/2024 2:36 PM EST) ~Hepatitis B Surface Antibody REACTIVE Nonreactive [facility] Comment:REACTIVE: > 11.99 mI U/mL Blood Venous blood specimen / Unknown 06/23/2024 2:36 PM EST 06/23/2024 2:36 PM EST Shauna Wallace DO LAB BLOOD ORDERABLES Final R esult Performing Organization Address City/[facility] Co de Phone Number [facility] [address] [place] [phone] * T4, Free (06/23/2024 2:36 PM EST) [facility] T4 (Free Thyroxine) 0.97 0.71 - 1.85 ng/dL [facility] Blood Venous blood specimen / Unknown 06/23/2024 2:36 PM EST 06/23/2024 2:36 PM EST [facility] BLOOD ORDERABLES Final R esult Performing Organization Address City/[facility]/ZIP Co de Phone Number [facility] [address] [place] [phone] * Bilirubin, Direct (06/23/2024 2:36 PM EST) [facility] Bilirubin, Direct <0.1 0.0 - 0.5 mg/dL [facility] 06/23/2024 2:36 PM EST 06/23/2024 2:36 PM EST [facility] LAB BLOOD ORDERABLES Final R esult Performing Organization Address City/[facility]/ZIP Co de Phone Number [facility] [address] [place] [phone] * Chlamydia/N. Gonorrhoeae RNA, TMA, Urogenitial (06/23/2024 1:56 PM EST) [facility] CT PCR NOT DETECTED Not Detect. [facility] Comment:A not detected test result [...] psychologicalconsequences. NG PCR NOT DETECTED Not Detect. [facility] Comment:A not detected test result [...] PM EST 06/23/2024 2:40 PM EST Narrative [facility] - 06/23/2024 4:21 PM EST Urine us Shauna Wallace DO LAB MICROBIOLOGY - GENERAL O RDERABLES Final Result [facility] [address] [place] [phone] * Stool - Gastrointestinal panel (06/23/2024 7:26 AM EST) Campylobacter Not Detected Not Detect. [facility] Plesiomonas shigelloides Not Detected Not Detect. [facility] Salmonella Not Detected Not Detect. [facility] Vibrio Not Detected Not Detect. [facility] Vibrio cholerae Not Detected Not Detect. [facility] YERSINIA ENTEROCOLITICA Not Detected Not Detect. [facility] Enteroaggregative E. coli (EAEC) Not Detected Not Detect. [facility] Enteropathogenic E. coli (EPEC) Not Detected Not Detect. [facility] Enterotoxigenic E. coli (ETEC) lt/st Not Detected Not Detect. [facility] Shiga-like toxin-producing E. coli (STEC) stx1/stx2 Not Detected Not Detect. [facility] E coli O157 Not applicable Not Detect. [facility] Comment:E. coli containing t he O157 antigen are a subset ofShiga-like toxin- producing E. coli (STEC). Shigella/Enteroinvasive E. coli (EIEC) Not Detected Not Detect. [facility] Cryptosporidium Not Detected Not Detect. [facility] Cyclospora cayetanensis Not Detected Not Detect. [facility] Entamoeba histolytica Not Detected Not Detect. [facility] Giardia lamblia Not Detected Not Detect. [facility] Adenovirus F 40/41 Not Detected Not Detect. [facility] Astrovirus Not Detected Not Detect. [facility] Norovirus GI/GII Not Detected Not Detect. [facility] Rotavirus A Not Detected Not Detect. [facility] Sapovirus Not Detected Not Detect. [facility] Comment: All results must be [...] assay is performed by Multiplexed PCR, utilizing theBiofire Film Array. Stool Rectal contents / Unknown 06/23/2024 7:26 AM EST 06/25/2024 8:54 AM EST us Shauna Wallace DO LAB MICROBIOLOGY - GENERAL O RDERABLES Final Result [facility] [address] [place] [phone] [phone] * Ova and Parasites (06/23/2024 7:26 AM EST) Ova and Parasite Trichrome SEE NOTE [facility] Comment: ??OVA AND PARASITES, CONC AND PERM SMEAR ??Micro Number: ?[id number] ??Test Status: ? Final ??Specimen Source: ?? [...] For additional information, please refer to ? [email or web address]/faq/XLT663 ? (This link is being provided for informational/ ? educational purposes only.)THIS TEST WAS PERFORMED AT:[employer] [facility] [address] [place], [place] ??[id number] JUDSON,MD Stool Rectal contents / Unknown 06/23/2024 7:26 AM EST 06/25/2024 8:54 AM EST Shauna Wallace DO LAB MICROBIOLOGY - GENERAL O RDERABLES Final Result Performing Organization Address [facility] Co de Phone Number [facility] [address] [place] [phone] * (ABNORMAL) Vitamin D, 25-Hydroxy, Total, Immunoassay (06/23/2024 6:45 AM EST) Vitamin D 25-OH Total 20.8(L) >30 ng/mL [facility] Comment:Health Based Referen ce Values*< 20 ng/mL Apcwgifub02-52 ng/mL Insufficient> 30 ng/mL Sufficient*Nathanael MURO. N [...] ORDERAB LES Final Result Performing Organization Address [facility] Co de Phone Number [facility] [address] [place] [phone] * Vitamin B12 (Cobalamin) and Folate Panel, Serum (06/23/2024 6:45 AM EST) Vitamin B12 279 200 - 900 pg/mL [facility] Comment:NORMAL 200-900 PG/ML INDETERMINATE 160-199 PG/ML DEFICIENT < 160 PG/ML Folate 9.8 > or = 4.0 ng/mL [facility] Comment:Reference Values:> o r = 4.0 ng/mL< 4.0 ng/mL suggests folate deficiency Methotrexate, aminopterin and folinic acid(leucovorin) are chemotherapeutic agents whose molecularstructures are similar to folate; therefore, the Architectfolate assay cannot be used for patients using these drugs. 06/23/2024 6:45 AM EST 06/23/2024 6:45 AM EST Generic External Data Provider LAB BLOOD ORDERAB LES Final Result Performing Organization Address [facility]/ZIP Co de Phone Number [facility] [address] [place] [phone] * TSH with Reflex to Free T4 (06/23/2024 6:45 AM EST) Pathologist [facility] Chronically Ill TSH reflex Free T4 1.73 0.32 - 4.0 uIU/mL [facility] 06/23/2024 6:45 AM EST 06/23/2024 6:45 AM EST Generic External Data Provider LAB BLOOD ORDERAB LES Final Result Performing Organization Address City/[facility]/ZIP Co de Phone Number [facility] [address] [place] [phone] * CBC auto differential (06/23/2024 6:45 AM EST) Pathologist [facility] White Blood Count 5.8 4.8 - 10.8 X10*3/uL [facility] Red Blood Count 4.58 4.20 - 5.50 X10*6/uL [facility] Hemoglobin 12.4 12.0 - 16.0 g/dl [facility] Hematocrit 38.4 37.0 - 47.0 % [facility] Mean Corpuscular Volume 83.8 80.0 - 98.0 fL [facility] Mean Corpuscular Hemoglobin 27.1 27.0 - 33.0 pg [facility] Mean Corpuscular HGB Conc 32.3 31.0 - 35.0 g/dl [facility] Red Cell Distribution Width 12.9 11.0 - 16.0 % [facility] Platelet Count 199 160 - 400 X10*3/uL [facility] Mean Platelet Volume 10.3 9.4 - 12.3 fL [facility] Neutrophils Percent Auto 58.9 45 - 73 % [facility] Imm Gran Pct Auto 0.2 0.0 - 0.4 % [facility] Lymphocytes Percent Auto 32.2 20 - 40 % [facility] Monocytes Percent Auto 7.0 2 - 11 % [facility] Eosinophils Percent Auto 1.2 0 - 4 % [facility] Basophils Percent Auto 0.5 0 - 2 % [facility] NRBC Pct Auto 0.0 0.0 - 0.2 /100WBC [facility] Neutrophils Absolute Auto 3.4 2.0 - 8.3 x10*3/uL [facility] Imm Gran Abs Auto 0.01 0.00 - 0.03 X10*3/uL [facility] Lymphocytes Absolute Auto 1.9 1.2 - 4.9 X10*3/uL [facility] Monocytes Absolute Auto 0.4 0.1 - 1.2 X10*3/uL [facility] Eosinophils Absolute Auto 0.1 0.0 - 0.4 X10*3/uL [facility] Basophils Absolute Auto 0.0 0.0 - 0.2 X10*3/uL [facility] NRBC Abs Auto 0.000 0.0 - 0.012 X10*3/uL [facility] 06/23/2024 6:45 AM EST 06/23/2024 6:45 AM EST us Generic External Data Provider LAB BLOOD ORDERAB LES Final Result Performing Organization Address [facility] Co de Phone Number [facility] [address] [place] [phone] * Iron And Total Iron Binding Capacity (06/23/2024 6:45 AM EST) Iron 118 30 - 160 mcg/dL [facility] Total Iron Binding Capacity 269 228 - 428 mcg/dL [facility] Percent Iron Saturation 44 15 - 50 % [facility] Unsaturated Iron Binding 151 ug/dL [facility] 06/23/2024 6:45 AM EST 06/23/2024 6:45 AM EST us Generic External Data Provider LAB BLOOD ORDERAB LES Final Result Performing Organization Address [facility] Co mn Phone Number [facility] [address] [place] [phone] * Insulin (06/23/2024 6:45 AM EST) Insulin 5 2 - 29 uU/mL [facility] Comment:This test was perfor med using the [employer] chemiluminescentmethod. Values obtained from different assay methods [...] ORDERAB LES Final Result Performing Organization Address [facility] Co de Phone Number [facility] [address] [place] [phone] * Zinc (06/23/2024 6:45 AM EST) Zinc 62 60 - 130 mcg/dL [facility] Comment:This test was develo ped and its analytical performancecharacteristics have been determined by [employer] [place]. It hasnot been cleared or approved by the U.S. Food and DrugAdministration. This assay has been validated pursuantto the CLIA regulations and is used for clinicalpurposes.THIS TEST WAS PERFORMED AT:[employer] [id number] [place] [address]EVMGFDEBRIAN APONTE MD,PHD 06/23/2024 6:45 AM EST 06/23/2024 6:45 AM EST Generic External Data Provider LAB BLOOD ORDERAB LES Final Result Performing Organization Address [facility] Co de Phone Number [facility] [address] [place] [phone] * Vitamin A (06/23/2024 6:45 AM EST) Pathologist [facility] Vitamin A (Retinol) 50 38 - 98 mcg/dL [facility] Comment:Vitamin supplementat ion within 24 hours prior toblood draw may affect the accuracy of the results.This test was developed and its analytical performancecharacteristics have been determined by [employer] [place]. It hasnot been cleared or approved by the U.S. Food and DrugAdministration. This assay has been validated pursuantto the CLIA regulations and is used for clinicalpurposes.THIS TEST WAS PERFORMED AT:[employer] [id number] [place] [address]QJFFJWDBRIAN APONTE MD,PHD 06/23/2024 6:45 AM EST 06/23/2024 6:45 AM EST Generic External Data Provider LAB BLOOD ORDERAB LES Final Result Performing Organization Address [facility]/ZIP Co de Phone Number [facility] [address] [place] [phone] * C-reactive Protein (06/23/2024 6:45 AM EST) Pathologist [facility] C Reactive Protein <0.10 < or = 0.50 mg/dL [facility] 06/23/2024 6:45 AM EST 06/23/2024 6:45 AM EST Generic External Data Provider LAB BLOOD ORDERAB LES Final Result Performing Organization Address City/[facility]/ZIP Co de Phone Number [facility] [address] [place] [phone] * Vitamin B1 (06/23/2024 6:45 AM EST) [facility] Vitamin B1 9 8 - 30 nmol/L [facility] Comment:Vitamin supplementat ion within 24 hours prior toblood draw may affect the accuracy of the results.This test was developed and its analytical performancecharacteristics have been determined by [employer] [place]. It hasnot been cleared or approved by the U.S. Food and DrugAdministration. This assay has been validated pursuantto the CLIA regulations and is used for clinicalpurposes.THIS TEST WAS PERFORMED AT:[employer]/[facility] [id number] [place] [address]RBSVBENBRIAN APONTE MD,PHD 06/23/2024 6:45 AM EST 06/23/2024 6:45 AM EST Generic External Data Provider LAB BLOOD ORDERAB LES Final Result Performing Organization Address City/[facility]/ZIP Co de Phone Number [facility] [address] [place] [phone] * Hemoglobin A1c (06/23/2024 6:45 AM EST) Pathologist [facility] Hemoglobin A1c 4.7 <6.0 % [facility] Comment:Hemoglobin A1C Refer ence Range Adults: 4.8 - 6.0 % Non diabetic: < 6.0 % Goal: < 7.0 %Additional Action Suggested: > 8.0 %Note: Hemoglobin A1c results are invalid for patients with abnormal amounts of HbF. Blood transfusions may impact the HbA1c concentration in the patient sample. Estimated Average Glucose 88 mg/dL [facility] Comment:eAG = Estimated ave rage glucose which is %A1C expressed asaverage glucose, using the formula of the L1D-AszqftpRkwrlau Glucose study (ADAG), Diabetes Care, Vol.31,#8,2007 06/23/2024 6:45 AM EST 06/23/2024 6:45 AM EST Generic External Data Provider LAB BLOOD ORDERAB LES Final Result Performing Organization Address [facility] Co de Phone Number [facility] [address] [place] [phone] * Ferritin (06/23/2024 6:45 AM EST) Ferritin 60 10 - 250 ng/mL [facility] 06/23/2024 6:45 AM EST 06/23/2024 6:45 AM EST Generic External Data Provider LAB BLOOD ORDERAB LES Final Result Performing Organization Address [facility] Phone Number [facility] [address] [place] [phone] * (ABNORMAL) Lipid Panel, Standard (06/23/2024 6:45 AM EST) Triglycerides 88 <150 mg/dL [facility] Comment:Desirable Triglyceri de: less than 150 mg/dLBorderline High Triglyceride 150-199 mg/dLHigh Triglyceride: 200-499 mg/dLVery High Triglyceride: greater than or equal to 5OO mg/dL Cholesterol 178 <200 mg/dL [facility] Comment:Desirable Cholestero l: less than 200 mg/dLBorderline High Cholesterol: 200-239 mg/dLHigh Cholesterol: greater than 239 mg/dL LDL Cholesterol Calculated 111(H) <100 mg/dL [facility] Comment:Desirable LDL: less than 100 mg/dLNear Optimal/Above Optimal LDL: 110- 129 mg/dLBorderline High LDL: 130-159 mg/dLHigh LDL: 160-189 mg/dLVery High LDL: greater than or equal to 190 mg/dL HDL Cholesterol 50 >40 mg/dL [facility] Comment:Desirable HDL: great er than 40 mg/dL Note: This HDL assay may give artificially low results in patients with liver disease. 06/23/2024 6:45 AM EST 06/23/2024 6:45 AM EST us Generic External Data Provider LAB BLOOD ORDERAB LES Final Result [facility] [address] [place] [address] [phone] * (ABNORMAL) Comprehensive Metabolic Panel (06/23/2024 6:45 AM EST) Sodium 141 135 - 145 mmol/L [facility] Potassium 4.0 3.3 - 5.1 mmol/L [facility] Chloride 111(H) 96 - 108 mmol/L [facility] Carbon Dioxide 24 22 - 29 mmol/L [facility] Anion Gap 10(L) 12 - 20 [facility] Urea Nitrogen (BUN) 15 9 - 16 mg/dL [facility] Creatinine, Serum 0.81 0.5 - 1.4 mg/dL [facility] Estimated Glomerular Filt Rate >60 [facility] Comment:Chronic Kidney Disea se: Estimated GFR < 60 mL/min/1.98c7Qwshfh Kidney Disease: Estimated GFR < 15 mL/min/1.73m2 Glucose 76 60 - 115 mg/dL [facility] Calcium 8.6 8.4 - 10.2 mg/dL [facility] Bilirubin, Total 0.5 0.0 - 1.0 mg/dL [facility] Aspartate Amino Transferase 17 5 - 31 U/L [facility] Alanine Aminotransferase 13 0 - 31 U/L [facility] Total Protein 6.8 6.5 - 8.0 g/dL [facility] Albumin Level 3.7 3.5 - 5.0 g/dL [facility] Alkaline Phosphatase 44 39 - 117 U/L [facility] 06/23/2024 6:45 AM EST 06/23/2024 6:45 AM EST us Generic External Data Provider LAB BLOOD ORDERAB LES Final Result [facility] [address] [facility] [place] [phone] * BI Mammogram Screen w/ He w/ Implants Asael (06/06/2024 10:36 AM EST) Anatomical Region Laterality Modality Mammography 06/06/2024 10:3 6 AM EST Narrative 06/19/2024 10:04 AM EST ? [facility] ? [address] ?[place] [address] ? Mammography Report ? Signed ? Patient: Davis,Velia ?MR#: [id number] ?? [id number] ? : 1980 ?Acct:[id number] ? Age/Sex: 44 / F ?ADM Date: 12/21/24 ? Loc: HO.MAMMO ? Attending Dr: Kika Brasher CNM ? Ordering Physician: Kika Brasher CNM ?Results: 2Beni ?? gn Findings ? Date of Service: 12/21/24 ?Follow Up: 1 Year From Orig ?? inal Mammogram ? Procedure(s): MM tomosynthesis screen imp BI ?? Accession Number(s): [id number] ? cc: Shauna Wallace DO; Kika Brasher [...] 06/19/24 1001 ? DD/ 1036 ? TD/TT: 06/06/24 1056 ? Clearance Diver: ? Procedure Note Vazquez, Image - 06/19/2024 [facility] [address] [place] [address] Dr. Al, [place] [address] Mammography Report Signed Patient: Velia DavisMR#: [id number] : 1980Acct:[id number] Age/Sex: 44 / FADM Date: 06/06/24 Loc: HO.MAMMO Attending Dr: Kika Brasher CNM Ordering Physician: Kika Brasheresults: 2Beni gn Findings Date of Service: 06/06/24Follow Up: 1 Year From Orig ina Mammogram Procedure(s): MM tomosynthesis screen imp BI Accession Number(s): [id number] cc: Shauna Wallace DO; Kika Brasher CNM [...] 06/19/24 1001 DD/ 1036 TD/TT: 06/06/24 1056 Clearance Diver: [facility] External Provider IMG BI PROCEDURES Final Result * Pap Smear (04/24/2024 12:00 AM EST) 04/24/2024 04/27/2024 9:3 0 AM EST Narrative [facility] - 04/29/2024 10:21 AM EST ----- ------- Name: Velia Davis ? Age/Sex: 44/F ? : 1980 Unit#: [id number] ?? Attend Dr: Kika Brasher CNM ?Re04/24/24 ?Status: DEP REF ? Location: HO.LAB ?Disch: ? ----- ------- SPEC : [id number] ?RECD: 04/27/24-929 ? STATUS: ??SOUT ? REQ NUM: [id number] ? GAULBERTO: 04/24/24-0000 ? SUBM DR: Kika Brasher CNM ? ENTERED: ??04/27/24-942 ?SP TYPE: Pap Smr ?OTHR DR: Shauna [...] Copies To: ?? Shauna Wallace DO ?? [facility] ?? [address] ?? [place] [address] ?? [phone] ?? Kika Brasher CNM ?? [facility] ?? [address] ?? [place] [address] ?? [phone] ----- ------- Signed (signature on file) SHONNA Uribe (ASCP) 04/29/24 1021 ? ----- ------- ? END OF REPORT ? us Generic External Data Provider LAB CYTOLOGY ORDE RABLES Final Result [facility] [address] [place] [phone] * HIV 1/2 ANTIGEN/ANTIBODY,FOURTH GENERATION W/RFL (08/02/2021 1:25 PM EST) [facility] HIV-1/2 ANTIGEN AND ANTIBODIES, 4TH GENERATION W/ REFLEX NON-REACT JUSTA NON-REACT JUSTA [facility] Comment: HIV-1 antigen and HIV-1/HIV-2 [...] ? For additional information please refer to http://education.[employer]ge[employer].Tistagames/faq/EEC833 (This link is being provided for informational/ educational purposes only.) ? The performance of this assay has not been clinically validated in patients less than 2 years old. ?? 08/02/2021 1:25 PM EST Shauna Wallace DO LAB BLOOD ORDERABLES Final R esult Performing Organization Address City/[facility]/ZIP Co de Phone Number [facility] [address] * HEPATITIS C ANTIBODY RFLX (03/16/2020 1:25 PM EDT) HEPATITIS C ANTIBODY [facility] Comment: Antibodies to HCV not detected; does not exclude early acute HCV infection. 03/16/2020 1:25 PM EDT Shauna Rodrigo SERRANO HISTORICAL/NON ORDERABLE LAB S Final Result Performing Organization Address [facility]/ZIP Co de Phone Number [facility] [address] * HPV mRNA E6/E7 (09/23/2018 12:17 PM EDT) HPV mRNA E6/E7 Not Detected NOT DETECTED [facility] Comment: This test was performed using the APTIMA(R) HPV Assay ([employer] This assay detects E6/E7 viral messenger RNA (mRNA) from 14 high-risk HPV types (16,18,31,33,35,39,45,51, 52,56,58,59,66,68). For additional information please refer to: http://education.[employer]/faq/GZI192k6 (This link is being provided for informational/ educational purposes only.) The analytical performance characteristics of this assay have been determined by [employer] [place], [place]. The modifications have not been cleared or approved by the FDA. This assay has been validated pursuant to the CLIA regulations and is used for clinical purposes. Test Performed by [facility], [employer] [facility], [address] [place] [address] Brian Aponte M.D., Ph.D., Director of Laboratories , CLIA [id number] Please note: ??Effective 02/27/2016, HPV testing will be performed using [employer]'s APTIMA test which targets mRNA. Detecting mRNA instead of DNA, as in older methods, offers significant improvements in specificity. 09/23/2018 12:1 7 PM EDT Historical Provider MD HISTORICAL/NON ORDERABLE LABS Final Result Performing Organization Address City/[facility] Co de Phone Number [facility] [address] from Last 3 Months or Most Recently Relevant to Health Maintenance Insurance [employer] PPO DENTAL - [facility] Care Teams Billet Heater Relationship Specialty Start Date End Date Shauna Wallace DO [address] [place] [address] PCP - General Family Medicine 12/01/19
--- OUTSIDE RECORDS SUMMARY | 2024-08-17 15:33 | XMS_ITS | Encounter Summary ---
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 Encounter Details Date Type Department Care Team (Late st Contact Info) Description 08/02/2022 Telephone [facility]ULT [facility] [address] [place], [place] [phone] Anton Forbes DDS [address] [place], [place] [phone] Appointment (Patient had to cancel appt for [...] encounter Miscellaneous Notes * Telephone Encounter - Demla Luciano - 08/02/2022 12:43 PM EST Patient [...] Description 09/16/2024 2:00 PM EDT Office Visit [facility] [address] [place] [address] Gaurav, Deb [address] [place] [address] documented as of this encounter Visit Diagnoses Not on filedocumented in this encounter Additional Health Concerns Assessment Noted Time PHQ-9 Depression Total Score: 0 07/26/19 23 11:44 AM EST documented as of this encounter Care Teams Supervisor [employer] Relationship Specialty Start Date End Date Shauna Wallace DO [address] [place] [address] PCP - General Family Medicine 12/01/19 documented as of this encounter
--- OUTSIDE RECORDS SUMMARY | 2024-08-17 15:33 | XMS_ITS | Encounter Summary ---
Author Organization [employer] Address [address] [place] [address] 7t [place] [address] Care Team Providers Care Communication Clerk Name Role Phone PaigeShauna woo DO Primary Care Provider + [phone] Reason for Visit * Reason Comments Annual Exam Encounter Details Date Type Department Care Team ([facility] st Contact Info) Description 07/24/2024 10:45 AM EST Office Visit [facility] [address] [place], [place] [phone] Marjan Ritchie MD [address] [place], [place] [phone] Encounter for preventive health examination (Primary Dx); [...] she is advised to schedule with her parts consultant within 6 months. Lipids/FBS: UTD, next one [...] bedtime for muscle spasms. 60 tablet 1 qvvtvcpjwk-twewtisxujkgr-zknowklx 50-325-40 MG tablet TAKE 1 TABLET BY [...] 07/24/2024 1:49 PM EST Associated Problem(s): Hyperchloremia (Resolved 08/17/2024) Most likely related to intermittent diarrhea. Advised regarding proper hydration with SRO. * Assessment & Plan Note - Renée Myles MA - 07/24/2024 1:47 PM EST Associated Problem(s): BMI 35.0-35.9,adult S/p bariatric surgery 15+ years ago. Discussed [...] 1:42 PM EST Associated Problem(s): Rheumatoid arthritis ([facility]/HCC) Unclear diagnosis, most recent labs normal. Off treatment since 2018. * Assessment & Plan Note - Renée Myles [place] - 07/24/2024 11:27 AM EST Associated Problem(s): Encounter for preventive health examination (Resolved 08/17/2024) Discussed with patient re increase fresh fruit and vegetable intake. Counseled re moderate exercise as tolerated, up to 20min/d Patient feels safe at home. PAP smear: UTD next due 2028 Mammogram: UTD next 05/2025 Eye exam: reportedly UTD, she is advised to schedule with her parts consultant within 6 months. Lipids/FBS: UTD, next one due 2025 Vaccinations: declined COVID and Flu, Adult IZ are UTD. Dental visit: UTD next one due 12/2024 documented in this encounter Plan of Treatment Upcoming Encounters Date Type Department Care Team (Late st Contact Info) Description 09/16/2024 2:00 PM EDT Office Visit [facility] [address] [place] [address] Deb Nolasco [address] [place] [address] documented as of this encounter Visit Diagnoses Diagnosis Encounter for preventive health examination- Primary Rheumatoid arthritis, involving unspecified site, unspecified whether rheumatoid factor present ([facility]) Mild intermittent asthma without complication Class 1 [...] documented as of this encounter Care Teams Communication Clerk Relationship Specialty Start Date End Date Shauna Wallace DO [address] [place] [address] PCP - General Family Medicine 12/01/19 documented as of this encounter
--- OUTSIDE RECORDS SUMMARY | 2024-08-17 15:33 | XMS_ITS | Encounter Summary ---
Author Organization [employer] Address [address] [facility] 7t [place] [address] Care Team Providers Care Business Continuity Strategy Director Name Role Phone PaigeShauna woo Primary Care Provider + [phone] Encounter Details Date Type Department Care Team [...] Description 09/16/2024 2:00 PM EDT Office Visit [facility]ULT [facility] [address] [place] [address] Gaurav, Deb [address] [place] [address] documented as of this encounter Visit Diagnoses Not on filedocumented in this encounter Additional Health Concerns Assessment Noted Time PHQ-9 Depression Total Score: 0 07/26/19 23 11:44 AM EST documented as of this encounter Care Teams Business Continuity Strategy Director Relationship Specialty Start Date End Date Shauna Wallace DO [address] [place] [address] PCP - General Family Medicine 12/01/19 documented as of this encounter
--- OUTSIDE RECORDS SUMMARY | 2024-08-17 15:33 | XMS_ITS | Encounter Summary ---
Author Organization [employer] Address [address] [facility] [address]t [place] [address] Care Team Providers Care Marine Cargo Inspector Name Role Phone PaigeShauna woo Primary Care Provider [phone] Encounter Details Date Type Department Care Team (Latest Contact Info) Description 08/17/2024 Travel Social History Tobacco Use Types Packs/Day [...] Description 09/16/2024 2:00 PM EDT Office Visit [facility] [address] [place] [address] Gaurav, Deb [address] [place] [address] documented as of this encounter Visit Diagnoses Not on filedocumented in this encounter Additional Health Concerns Assessment Noted Time PHQ-9 Depression Total Score: 0 07/26/19 23 11:44 AM EST documented as of this encounter Care Teams Marine Cargo Inspector Relationship Specialty Start Date End Date Shauna Wallace DO [address] [place] [address] PCP - General Family Medicine 12/01/19 documented as of this encounter
--- OUTSIDE RECORDS SUMMARY | 2024-08-17 15:33 | XMS_ITS | Encounter Summary ---
Author Organization [employer] Address [address] [place] [id number] Care Team Providers Care Machine Mover Name Role Phone Shauna Wallace DO Primary Care Provider [phone] Reason for Referral * Medications - Closed Specialty Diagnoses / Procedures Referred By Riaz t Referred To Contact Diagnoses BMI 35.0-35.9,adult Shauna Wallace DO [address] [place] [address] Phone: tel: fax: Referral ID Status Reason Start Date Expiration Date Visits Re quested Visits Authorized [id number] Closed 1 1 * Medications - Closed Specialty Diagnoses / Procedures Referred By Riaz gavin Referred To Contact Diagnoses BMI 35.0-35.9,adult Shauna Wallace DO [address] [place] [address] Phone: tel: fax: Referral ID Status Reason Start Date Expiration Date Visits Re quested Visits Authorized [id number] Closed 1 1 Encounter Details Date Type Department Care Team (Late st Contact Info) Description 08/17/2024 11:45 AM EST Office Visit [facility] MED[facility] [address] [place] [address] Shauna Wallace DO [address] [place], [place] [phone] Single pelvic kidney (Primary Dx); Change in bowel habits; Right ear pain; BMI 35.0-35.9,adult Social History Tobacco Use Types Packs/Day Years [...] Mass Index 35.07 08/17/2024 11:49 AM EST documented in this encounter Plan of Treatment Upcoming Encounters Date Type Department Care Team (Late st Contact Info) Description 09/16/2024 2:00 PM EDT Office Visit [facility] ADULT DENTAL [address] [place] [address] Gaurav, Deb [address] [place] [address] documented as of this encounter Visit Diagnoses Diagnosis Single pelvic kidney- Primary Change in bowel habits Other symptoms involving digestive system Right ear pain Unspecified otalgia BMI 35.0-35.9,adult documented in this encounter Additional Health Concerns Assessment Noted Time PHQ-9 Depression Total Score: 0 07/26/19 23 11:44 AM EST documented as of this encounter Care Teams Machine Mover Relationship Specialty Start Date End Date Shauna Wallace DO [address] [place] [address] PCP - General Family Medicine 12/01/19 documented as of this encounter
--- OUTSIDE RECORDS SUMMARY | 2024-08-17 15:33 | XMS_ITS | Encounter Summary ---
Author Organization [facility] Address [address] [place] [address] [address] [address] Care Team Providers Care Traffic Survey Technician Name Role Phone Shauna Wallace DO Primary Care Provider [phone] Encounter Details Date Type Department Care Team (Latest Contact Info) Description 03/26/2019 Abstract [facility] CONVERSIONS Dental, Provider, DDS Social History [...] Description 09/16/2024 2:00 PM EDT Office Visit [facility] ADULT DENTAL [address] [place] [address] Gaurav, Deb [address] [place] [address] documented as of this encounter Visit Diagnoses Not on filedocumented in this encounter Care Teams Traffic Survey Technician Relationship Specialty Start Date End Date Shauna aWllace DO [address] [place] [address] PCP - General Family Medicine 12/01/19 documented as of this encounter
== END 2024-08-17 14:15 | disposition home or self-care (01) ==
PROVIDERS: PCP Family Medicine; Visit Provider Internal Medicine
DX: K52.9 Noninfective gastroenteritis and colitis, unspecified (principal); Z78.9 Other specified health status
CPT/HCPCS: 99204

== ENCOUNTER 2024-08-20 | Outpatient (REF) | payer BC, SELFPAY ==
--- OUTSIDE RECORDS SUMMARY | 2024-08-24 08:28 | XMS_ITS | Encounter Summary ---
Author Organization [employer] Address [address] [facility] [address]t [place] [address] Care Team Providers Care Pot Reliner Name Role Phone PaigeShauna woo Primary Care Provider [phone] Encounter Details Date Type Department Care Team [...] Description 09/16/2024 2:00 PM EDT Office Visit [facility] [address] [place] [address] Gaurav, Deb [address] [place] [address] documented as of this encounter Visit Diagnoses Not on filedocumented in this encounter Additional Health Concerns Assessment Noted Time PHQ-9 Depression Total Score: 0 07/26/19 23 11:44 AM EST documented as of this encounter Care Teams Pot Reliner Relationship Specialty Start Date End Date Shauna Wallace DO [address] [place] [address] PCP - General Family Medicine 12/01/19 documented as of this encounter
--- OUTSIDE RECORDS SUMMARY | 2024-08-24 08:28 | XMS_ITS | Encounter Summary ---
Author Organization [employer] Address [address] [facility] [address]t [place] [address] Care Team Providers Care Manager Housekeeping Name Role Phone PaigeShauna woo Primary Care Provider [phone] Encounter Details Date Type Department Care Team ([facility] st Contact Info) Description 08/17/2024 [...] Description 09/16/2024 2:00 PM EDT Office Visit [facility] [address] [place], [place] [phone] Gaurav, Deb [address] [place] [address] documented as of this encounter Procedures Procedure Name Priority Date/Time Associated Diagnosis Comments VITAMIN B12/FOLATE, SERUM PANEL Routine 08/17/2024 2:40 PM EST TSH W/REFLEX TO FT4 Routine 08/17/2024 2 :40 PM EST TISSUE TRANSGLUTAMINASE AB, IGA Routine 08/17/2024 2:40 PM EST CBC Routine 08/17/2024 2:40 PM EST IMMUNOGLOBULIN A Routine 08/17/2024 2:40 PM EST documented in this encounter Results * Immunoglobulin A (08/17/2024 2:40 PM EST) Immunoglobulin A 246 47 - 310 mg/dL [facility] Comment:THIS TEST WAS PERFOR MED AT:[facility] [address] [id number] BARRY MD 08/17/2024 2:40 PM EST 08/17/2024 2:40 PM EST us Generic External Data Provider LAB BLOOD ORDERAB LES Final Result [facility] [address] [place] [phone] * Tissue Transglutaminase Antibody, IgA (08/17/2024 2:40 PM EST) Transglutaminase IgA <1.0 U/mL [facility] Comment:Value Interpretation ----- <15.0 Antibody not detected> or = 15.0 Antibody detectedTHIS TEST WAS PERFORMED AT:[employer] [place] [id number] BARRY MD 08/17/2024 2:40 PM EST 08/17/2024 2:40 PM EST [employer] External Data Provider LAB BLOOD ORDERAB LES Final Result Performing Organization Address [facility]/ZIP Co de Phone Number [facility] [address] [place] [phone] * Vitamin B12 (Cobalamin) and Folate Panel, Serum (08/17/2024 2:40 PM EST) Vitamin B12 279 200 - 900 pg/mL [facility] Comment:NORMAL 200-900 PG/ML INDETERMINATE 160-199 PG/ML DEFICIENT < 160 PG/ML Folate 12.1 > or = 4.0 ng/mL [facility] Comment:Reference Values:> o r = 4.0 ng/mL< 4.0 ng/mL suggests folate deficiency Methotrexate, aminopterin and folinic acid(leucovorin) are chemotherapeutic agents whose molecularstructures are similar to folate; therefore, the Architectfolate assay cannot be used for patients using these drugs. 08/17/2024 2:40 PM EST 08/17/2024 2:40 PM EST Generic External Data Provider LAB BLOOD ORDERAB LES Final Result Performing Organization Address [facility]/ZIP Co de Phone Number [facility] [address] [place] [phone] * TSH with Reflex to Free T4 (08/17/2024 2:40 PM EST) TSH reflex Free T4 1.56 0.32 - 4.0 uIU/mL [facility] 08/17/2024 2:40 PM EST 08/17/2024 2:40 PM EST us Generic External Data Provider LAB BLOOD ORDERAB LES Final Result [facility] [address] [place] [phone] * CBC (08/17/2024 2:40 PM EST) Pathologist [facility] White Blood Count 5.9 4.8 - 10.8 X10*3/uL [facility] Red Blood Count 4.54 4.20 - 5.50 X10*6/uL [facility] Hemoglobin 12.4 12.0 - 16.0 g/dl [facility] Hematocrit 38.1 37.0 - 47.0 % [facility] Mean Corpuscular Volume 83.9 80.0 - 98.0 fL [facility] Mean Corpuscular Hemoglobin 27.3 27.0 - 33.0 pg [facility] Mean Corpuscular HGB Conc 32.5 31.0 - 35.0 g/dl [facility] Red Cell Distribution Width 12.9 11.0 - 16.0 % [facility] Platelet Count 213 160 - 400 X10*3/uL [facility] Mean Platelet Volume 10.7 9.4 - 12.3 fL [facility] NRBC Pct Auto 0.0 0.0 - 0.2 /100WBC [facility] NRBC Abs Auto 0.000 0.0 - 0.012 X10*3/uL [facility] 08/17/2024 2:40 PM EST 08/17/2024 2:40 PM EST us Generic External Data Provider LAB BLOOD ORDERAB LES Final Result [facility] [address] [place] [phone] documented in this encounter Visit Diagnoses Not on filedocumented in this encounter Additional Health Concerns Assessment Noted Time PHQ-9 Depression Total Score: 0 07/26/19 23 11:44 AM EST documented as of this encounter Care Teams Manager Housekeeping Relationship Specialty Start Date End Date Shauna Wallace DO [address] [place] [phone] PCP - General Family Medicine 12/01/19 documented as of this encounter
--- OUTSIDE RECORDS SUMMARY | 2024-08-24 08:28 | XMS_ITS | Encounter Summary ---
Author Organization [employer] Address [address] [place] [address] Care Team Providers Care Debone Supervisor Name Role Phone Shauna Wallace DO Primary Care Provider [phone] Reason for Referral * Medications - Closed Specialty Diagnoses / Procedures Referred By Riaz t Referred To Contact Diagnoses BMI 35.0-35.9,adult Shauna Wallace DO [address] [place] [address] Phone: tel: fax: Referral ID Status Reason Start Date Expiration Date Visits Re quested Visits Authorized [id number] Closed 1 1 * Medications - Closed Specialty Diagnoses / Procedures Referred By Riaz gavin Referred To Contact Diagnoses BMI 35.0-35.9,adult Shauna Wallace DO [address] [place] [address] Phone: tel: fax: Referral ID Status Reason Start Date Expiration Date Visits Re quested Visits Authorized [id number] Closed 1 1 Encounter Details Date Type Department Care Team (Late st Contact Info) Description 08/17/2024 11:45 AM EST Office Visit [facility] MEDICINE [address] [place] [address] Shauna Wallace DO [address] [place], [place] [phone] Single pelvic kidney (Primary Dx); Change in [...] Description 09/16/2024 2:00 PM EDT Office Visit [facility] ADULT DENTAL [address] [place] [address] Gaurav, Deb [address] [place] [address] documented as of this encounter Visit Diagnoses Diagnosis Single pelvic kidney- Primary Change in bowel habits Other symptoms involving digestive system Right ear pain Unspecified otalgia BMI 35.0-35.9,adult documented in this encounter Additional Health Concerns Assessment Noted Time PHQ-9 Depression Total Score: 0 07/26/19 23 11:44 AM EST documented as of this encounter Care Teams Debone Supervisor Relationship Specialty Start Date End Date Shauna Wallace DO [address] [place] [address] PCP - General Family Medicine 12/01/19 documented as of this encounter
--- OUTSIDE RECORDS SUMMARY | 2024-08-24 08:29 | XMS_ITS | Encounter Summary ---
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 Encounter Details Date Type Department Care Team (Late st Contact Info) Description 08/02/2022 Telephone [facility] ADULT DENTAL [address] [place], [place] [phone] Anton Forbes DDS [address] [place], [place] [phone] Appointment (Patient had to cancel appt for [...] Description 09/16/2024 2:00 PM EDT Office Visit [facility] ADULT DENTAL [address] [place] [address] Gaurav, Deb [address] [place] [address] documented as of this encounter Visit Diagnoses Not on filedocumented in this encounter Additional Health Concerns Assessment Noted Time PHQ-9 Depression Total Score: 0 07/26/19 23 11:44 AM EST documented as of this encounter Care Teams Card Player Relationship Specialty Start Date End Date Shauna Wallace DO [address] [place] [address] PCP - General Family Medicine 12/01/19 documented as of this encounter
--- OUTSIDE RECORDS SUMMARY | 2024-08-24 08:29 | XMS_ITS | Encounter Summary ---
Author Organization [employer] [facility] Address [address] [place] [address] [address] [place] [address] Care Team Providers Care Photogrammetric Tech Name Role Phone Shauna Wallace DO Primary Care Provider [phone] Encounter Details Date Type Department Care Team (Latest Contact Info) Description 03/26/2019 Abstract [facility] CONVERSIONS Dental, Provider, DDS Social History [...] Description 09/16/2024 2:00 PM EDT Office Visit [facility] ADULT DENTAL [address] [place] [address] Gaurav, Deb [address] [place] [address] documented as of this encounter Visit Diagnoses Not on filedocumented in this encounter Care Teams Photogrammetric Tech Relationship Specialty Start Date End Date Shauna Wallace DO [address] [place] [address] PCP - General Family Medicine 12/01/19 documented as of this encounter
--- OUTSIDE RECORDS SUMMARY | 2024-08-24 08:29 | XMS_ITS | Encounter Summary ---
Author Organization [employer] Address [address] [place] [address] [address] [place] [address] Care Team Providers Care Factorer Name Role Phone Shauna Wallace DO Primary Care Provider + [phone] Reason for Visit * Reason Comments Med Refill Encounter Details Date Type Department Care Team ([facility] st Contact Info) Description 08/18/2024 Refill [facility] MEDICINE [address] [place], [place] [phone] Shauna Wallace DO [address] [place] [address] Nonintractable chronic migraine Social History Tobacco Use [...] Description 09/16/2024 2:00 PM EDT Office Visit [facility] ADULT DENTAL [address] [place] [address] Osmin Nolascoaris [address] [place] [address] documented as of this encounter Visit Diagnoses Diagnosis Nonintractable chronic migraine documented in this encounter Additional Health Concerns Assessment Noted Time PHQ-9 Depression Total Score: 0 07/26/19 23 11:44 AM EST documented as of this encounter Care Teams Factorer Relationship Specialty Start Date End Date Shauna Wallace DO [address] [place] [address] PCP - General Family Medicine 12/01/19 documented as of this encounter
--- OUTSIDE RECORDS SUMMARY | 2024-08-24 08:29 | XMS_ITS | Clinical Summary ---
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 Lipids/FBS: UTD, next one [...] Type Department Care Team Description 08/18/2024 Refill [facility] [address] [place] [address] Shauna Wallace DO Nonintractable chronic migraine 08/17/2024 11:45 AM EST Office Visit [facility] [address] [place] [address] Shauna Wallace DO Single pelvic kidney (Primary Dx); Change in bowel habits; Right ear pain; BMI 35.0-35.9,adult 08/17/2024 Orders Only GENERIC EXTERNAL DATA DEPARTMENT Provider, Generic External Data 08/17/2024 Travel 07/24/2024 10:45 AM EST Office Visit [facility] [address] [place] [address] Marjan Ritchie MD Encounter for preventive health examination (Primary Dx); Rheumatoid arthritis, involving unspecified site, unspecified whether rheumatoid factor present ([facility]); Mild intermittent asthma without complication; Class 1 obesity without serious comorbidity with body mass index (BMI) of 34.0 to 34.9 in adult, unspecified obesity type; Hyperchloremia; Dietary counseling; Exercise counseling 07/24/2024 Travel 07/13/2024 Patient Outreach [facility] [address] [place] [address] Shauna Wallace DO Pre-visit Planning (Pre visit planning LVM ) 06/25/2024 3:00 PM EST Office Visit [facility] [address] [place] [address] nAton Forbes DDS Dental caries on smooth surface limited to enamel (Primary Dx) 06/25/2024 Travel 06/23/2024 Telephone [facility] [address] [facility] [place] [address] Shauna Wallace, Lab Orders 06/23/2024 Orders Only GENERIC EXTERNAL DATA DEPARTMENT Provider, Generic External Data 06/22/2024 10:15 AM EST Telemedicine [facility] [address] [facility] [place] [address] Shauna Wallace, Change in bowel habits (Primary Dx); Gastroesophageal reflux disease, unspecified whether esophagitis present; Shakiness; Nonintractable chronic migraine 06/22/2024 Travel 06/15/2024 Telephone [facility] [address] [place] [address] Shauna Wallace DO 06/12/2024 Telephone [facility] [address] [place] [address] Shauna Wallace, insurance 06/06/2024 Orders Only [facility] External Provider, [facility] from Last 3 Months Immunizations Name [...] Office Visit [facility] [address] [place] [address] Gaurav, Deb [address] [place] [address] Health Maintenance Due Date Last Done Comments [...] Vitamin B12 279 200 - 900 pg/mL [facility] Comment:NORMAL 200-900 PG/ML INDETERMINATE 160-199 PG/ML DEFICIENT < 160 PG/ML Folate 12.1 > or = 4.0 ng/mL [facility] Comment:Reference Values:> o r = 4.0 ng/mL< 4.0 ng/mL suggests folate deficiency Methotrexate, aminopterin and folinic acid(leucovorin) are chemotherapeutic agents whose molecularstructures are similar to folate; therefore, the Architectfolate assay cannot be used for patients using these drugs. 08/17/2024 2:40 PM EST 08/17/2024 2:40 PM EST us Generic External Data Provider LAB BLOOD ORDERAB LES Final Result Performing Organization Address [facility] Co de Phone Number [facility] [address] [place] [phone] * TSH with Reflex to Free T4 (08/17/2024 2:40 PM EST) Only the most recent of2 resultswithin the time period is included. TSH reflex Free T4 1.56 0.32 - 4.0 uIU/mL [facility] 08/17/2024 2:40 PM EST 08/17/2024 2:40 PM EST Generic External Data Provider LAB BLOOD ORDERAB LES Final Result Performing Organization Address City/[facility]/ZIP Co de Phone Number [facility] [address] [place] [phone] * Tissue Transglutaminase Antibody, IgA (08/17/2024 2:40 PM EST) Transglutaminase IgA <1.0 U/mL [facility] Comment:Value Interpretation ----- <15.0 Antibody not detected> or = 15.0 Antibody detectedTHIS TEST WAS PERFORMED AT:[employer] [place] [phone] BARRY MD 08/17/2024 2:40 PM EST 08/17/2024 2:40 PM EST us Generic External Data Provider LAB BLOOD ORDERAB LES Final Result [facility] [address] [place] [phone] * CBC (08/17/2024 2:40 PM EST) Pathologist [facility] White Blood Count 5.9 4.8 - 10.8 X10*3/uL [facility] Red Blood Count 4.54 4.20 - 5.50 X10*6/uL [facility] Hemoglobin 12.4 12.0 - 16.0 g/dl [facility] Hematocrit 38.1 37.0 - 47.0 % [facility] Mean Corpuscular Volume 83.9 80.0 - 98.0 fL [facility] Mean Corpuscular Hemoglobin 27.3 27.0 - 33.0 pg [facility] Mean Corpuscular HGB Conc 32.5 31.0 - 35.0 g/dl [facility] Red Cell Distribution Width 12.9 11.0 - 16.0 % [facility] Platelet Count 213 160 - 400 X10*3/uL [facility] Mean Platelet Volume 10.7 9.4 - 12.3 fL [facility] NRBC Pct Auto 0.0 0.0 - 0.2 /100WBC [facility] NRBC Abs Auto 0.000 0.0 - 0.012 X10*3/uL [facility] 08/17/2024 2:40 PM EST 08/17/2024 2:40 PM EST us Generic External Data Provider LAB BLOOD ORDERAB LES Final Result Performing Organization Address [facility]/ZIP Co de Phone Number [facility] [address] [place] [phone] * Immunoglobulin A (08/17/2024 2:40 PM EST) Immunoglobulin A 246 47 - 310 mg/dL [facility] Comment:THIS TEST WAS PERFOR MED AT:[facility] [place] [phone] BARRY MD 08/17/2024 2:40 PM EST 08/17/2024 2:40 PM EST Generic External Data Provider LAB BLOOD ORDERAB LES Final Result Performing Organization Address [facility] de Phone Number [facility] [address] [place] [phone] [phone] * US Abdomen Complete (08/01/2024 7:43 AM EST) Anatomical Region Laterality Modality Abdomen Ultrasound 08/01/2024 7:43 AM EST Narrative 08/01/2024 7:45 AM EST ? [facility] ?[address] ?[place] [address] ? Ultrasound Report ? Signed ? Patient: Ryan,Velia ?MR#: [id number] ?? [id number] ? : 1980 ?Acct:[id number] ? Age/Sex: 44 / F ?ADM Date: 02/14/25 ? Loc: HO.US ? Attending Dr: Shauna Wallace DO ? Ordering Physician: Shauna Wallace DO ?? Date of Service: 07/31/24 ?? Procedure(s): US abdomen complete ?? Accession Number(s): [id number] ? cc: Shauna Wallace DO ? CLINICAL [...] ? DD/ 2 ? TD/TT: 08/01/24742 ? Content Management Specialist: ? Procedure Note Trino Shukla - 08/01/[address] [address] Ultrasound Report Signed Patient: Velia DavisMR#: [id number] : 1980Acct:[id number] Age/Sex: 44 / FADM Date: 07/31/24 Loc: HO.US Attending Dr: Shauna Wallace DO Ordering Physician: Shauna Wallace DO Date of Service: 07/31/24 Procedure(s): US abdomen complete Accession Number(s): [id number] cc: Shauna Wallace DO CLINICAL HISTORY: reflux [...] 08/01/24 0745 DD/ 0743 TD/TT: 08/01/24 0743 Content Management Specialist: Shauna Wallace DO IMG US PROCEDURES Edited Res ult - Final * C-Peptide (07/09/2024 7:11 AM EST) Only the most recent of2 resultswithin the time period is included. C-Peptide 2.09 0.80 - 3.85 ng/mL [facility] Comment:THIS TEST WAS PERFOR MED AT:[facility] [place] [phone] BARRY MD Blood Venous blood specimen / Unknown 07/09/2024 7:11 AM EST 07/09/2024 7:11 AM EST us Shauna Wallace DO LAB BLOOD ORDERABLES Final R esult [facility] [address] [place] [phone] [phone] * HCV RNA BY PCR, QN RFX JENNIFER (06/23/2024 2:36 PM EST) HCV RNA PCR QN <15 NOT DETECTED NOT DETECTED IU/mL [facility] HCV RNA PCR QN <1.18 NOT DETECTED NOT DETECTED Log IU/mL [facility] HCV RNA COMMENT SEE NOTE [facility] Comment:For additional infor mation, please refer [email or web address]/faq/CQE82g5(This link is being provided for informational/Educational purposes only.)THIS TEST WAS PERFORMED AT:[employer] [place] [phone] BARRY MD HCV RNA GENOTYPE,LIPA TNP [facility] Comment:Test not indicated. 06/23/2024 2:36 PM EST 06/23/2024 2:36 PM EST us Shauna Wallace DO LAB BLOOD ORDERABLES Final R esult [facility] [address] [place] [phone] * HIV-1 RNA, Quantitative, Real-Time PCR with Reflex to Genotype (RTI, PI, Integrase) (06/23/2024 2:36 PM EST) Pathologist [facility] HIV RNA PCR Qn Copies Not Detected Copies/mL [facility] HIV RNA PCR Qn Log Copies Not Detected Log cps/mL [facility] Comment:Reference Range: Not Detected copies/mL Not Detected Log copies/mLThe test was performed using Real-Time Polymerase ChainReaction.Reportable Range: 20 copies/mL to 10,000,000 copies/mL(1.30 Log copies/mL to 7.00 Log copies/mL).THIS TEST WAS PERFORMED AT:[employer] [place] [address]HYLFVKXBRIAN APONTE MD,PHD HIV-1 Genotype Progressive [facility] HIV 1 Genotype [facility] Comment:Test not indicated. 06/23/2024 2:36 PM EST 06/23/2024 2:36 PM EST Shauna Wallace DO LAB BLOOD ORDERABLES Final R esult Performing Organization Address City/[facility] Co de Phone Number [facility] [address] [place] [phone] * Beta-Hydroxybutyrate (06/23/2024 2:36 PM EST) Beta-Hydroxybut yrate 0.09 0.02 - 0.27 mmol/L [facility] Blood Venous blood specimen / Unknown 06/23/2024 2:36 PM EST 06/23/2024 2:36 PM EST us Shauna Wallace DO LAB BLOOD ORDERABLES Final R esult Performing Organization Address [facility] Co de Phone Number [facility] [address] [place] [phone] * Hepatitis A Antibody, Total (06/23/2024 2:36 PM EST) Hepatitis A Antibody IgG Nonreactive Nonreactive [facility] Blood Venous blood specimen / Unknown 06/23/2024 2:36 PM EST 06/23/2024 3:21 PM EST Shauna Wallace DO LAB BLOOD ORDERABLES Final R esult Performing Organization Address [facility] Co de Phone Number [facility] [address] [place] [phone] * Hepatitis B surface antigen, EIA (06/23/2024 2:36 PM EST) Hepatitis B Surface Ag Negative Negative [facility] Blood Venous blood specimen / Unknown 06/23/2024 2:36 PM EST 06/23/2024 2:36 PM EST Shauna Wallace DO LAB BLOOD ORDERABLES Final R esult Performing Organization Address [facility] Co de Phone Number [facility] [address] [place] [phone] * Hepatitis B Core Antibody, Total (06/23/2024 2:36 PM EST) Hepatitis B Core Antibody Nonreactive Nonreactive [facility] Blood Venous blood specimen / Unknown 06/23/2024 2:36 PM EST 06/23/2024 2:36 PM EST Shauna Wallace DO LAB BLOOD ORDERABLES Final R esult Performing Organization Address [facility] Phone Number [facility] [address] [place] [phone] * RPR (Monitor) with Reflex to??Titer (06/23/2024 2:36 PM EST) RPR (Monitor) w/Refl Titer NON-REACTI VE NON-REACT JUSTA [facility] Comment:THIS TEST WAS PERFOR MED AT:[facility] [employer] [place] [phone] BARRY MD Rapid Plasma Reagin Ab Titer TNP [facility] Blood Venous blood specimen / Unknown 06/23/2024 2:36 PM EST 06/23/2024 2:36 PM EST Shauna Wallace DO LAB BLOOD ORDERABLES Final R esult Performing Organization Address [facility] de Phone Number [facility] [address] [place] [phone] * Hepatitis B Surface Antibody, Qualitative (06/23/2024 2:36 PM EST) Pathologist [facility] ~Hepatitis B Surface Antibody REACTIVE Nonreactive [facility] Comment:REACTIVE: > 11.99 mI U/mL Blood Venous blood specimen / Unknown 06/23/2024 2:36 PM EST 06/23/2024 2:36 PM EST Shauna Rodrigo DO LAB BLOOD ORDERABLES Final R esult Performing Organization Address City/[facility]/ZIP Co de Phone Number [facility] [address] [place] [phone] * T4, Free (06/23/2024 2:36 PM EST) [facility] Free T4 (Free Thyroxine) 0.97 0.71 - 1.85 ng/dL [facility] Blood Venous blood specimen / Unknown 06/23/2024 2:36 PM EST 06/23/2024 2:36 PM EST Shauna Rodrigo DO LAB BLOOD ORDERABLES Final R esult Performing Organization Address [facility] Co de Phone Number [facility] [address] [place] [phone] * Bilirubin, Direct (06/23/2024 2:36 PM EST) [facility] Bilirubin, Direct <0.1 0.0 - 0.5 mg/dL [facility] 06/23/2024 2:36 PM EST 06/23/2024 2:36 PM EST Shauna Gibsonamna LAB BLOOD ORDERABLES Final R esult Performing Organization Address City/[facility] Co de Phone Number [facility] [address] [place] [phone] * Chlamydia/N. Gonorrhoeae RNA, TMA, Urogenitial (06/23/2024 1:56 PM EST) [facility] CT PCR NOT DETECTED Not Detect. [facility] Comment:A not detected test result [...] psychologicalconsequences. NG PCR NOT DETECTED Not Detect. [facility] Comment:A not detected test result [...] PM EST 06/23/2024 2:40 PM EST Narrative [facility] - 06/23/2024 4:21 PM EST Urine us Shauna Wallace DO LAB MICROBIOLOGY - GENERAL O RDERABLES Final Result [facility] [address] [place] [phone] * Stool - Gastrointestinal panel (06/23/2024 7:26 AM EST) Campylobacter Not Detected Not Detect. [facility] Plesiomonas shigelloides Not Detected Not Detect. [facility] Salmonella Not Detected Not Detect. [facility] Vibrio Not Detected Not Detect. [facility] Vibrio cholerae Not Detected Not Detect. [facility] YERSINIA ENTEROCOLITICA Not Detected Not Detect. [facility] Enteroaggregative E. coli (EAEC) Not Detected Not Detect. [facility] Enteropathogenic E. coli (EPEC) Not Detected Not Detect. [facility] Enterotoxigenic E. coli (ETEC) lt/st Not Detected Not Detect. [facility] Shiga-like toxin-producing E. coli (STEC) stx1/stx2 Not Detected Not Detect. [facility] E coli O157 Not applicable Not Detect. [facility] Comment:E. coli containing t he O157 antigen are a subset ofShiga-like toxin- producing E. coli (STEC). Shigella/Enteroinvasive E. coli (EIEC) Not Detected Not Detect. [facility] Cryptosporidium Not Detected Not Detect. [facility] Cyclospora cayetanensis Not Detected Not Detect. [facility] Entamoeba histolytica Not Detected Not Detect. [facility] Giardia lamblia Not Detected Not Detect. [facility] Adenovirus F 40/41 Not Detected Not Detect. [facility] Astrovirus Not Detected Not Detect. [facility] Norovirus GI/GII Not Detected Not Detect. [facility] Rotavirus A Not Detected Not Detect. [facility] Sapovirus Not Detected Not Detect. [facility] Comment: All results must be [...] assay is performed by Multiplexed PCR, utilizing Voxxter Array. Stool Rectal contents / Unknown 06/23/2024 7:26 AM EST 06/25/2024 8:54 AM EST us Shauna Wallace DO LAB MICROBIOLOGY - GENERAL O RDERABLES Final Result [facility] [address] [place] [address] [phone] * Ova and Parasites (06/23/2024 7:26 AM EST) Ova and Parasite Trichrome SEE NOTE [facility] Comment: ??OVA AND PARASITES, CONC AND PERM SMEAR ??Micro Number: ?[id number] ??Test Status: ? Final ??Specimen Source: ?? [...] For additional information, please refer to ? [email or web address]/[email or web address] ? (This link is being provided for informational/ ? educational purposes only.)THIS TEST WAS PERFORMED AT:[facility] [address] [place], [place] ??[address]FEKK JUDSON,MD Stool Rectal contents / Unknown 06/23/2024 7:26 AM EST 06/25/2024 8:54 AM EST us Shauna Wallace DO LAB MICROBIOLOGY - GENERAL O RDERABLES Final Result [facility] [address] [place] [address] [phone] * (ABNORMAL) Vitamin D, 25-Hydroxy, Total, Immunoassay (06/23/2024 6:45 AM EST) Vitamin D 25-OH Total 20.8(L) >30 ng/mL [facility] Comment:Health Based Referen ce Values*< 20 ng/mL Qkqyotmpo54-90 ng/mL Insufficient> 30 ng/mL Sufficient*Nathanael MURO. N [...] Provider LAB BLOOD ORDERAB LES Final Result [facility] [address] [place] [phone] * CBC auto differential (06/23/2024 6:45 AM EST) White Blood Count 5.8 4.8 - 10.8 X10*3/uL [facility] Red Blood Count 4.58 4.20 - 5.50 X10*6/uL [facility] Hemoglobin 12.4 12.0 - 16.0 g/dl [facility] Hematocrit 38.4 37.0 - 47.0 % [facility] Mean Corpuscular Volume 83.8 80.0 - 98.0 fL [facility] Mean Corpuscular Hemoglobin 27.1 27.0 - 33.0 pg [facility] Mean Corpuscular HGB Conc 32.3 31.0 - 35.0 g/dl [facility] Red Cell Distribution Width 12.9 11.0 - 16.0 % [facility] Platelet Count 199 160 - 400 X10*3/uL [facility] Mean Platelet Volume 10.3 9.4 - 12.3 fL [facility] Neutrophils Percent Auto 58.9 45 - 73 % [facility] Imm Gran Pct Auto 0.2 0.0 - 0.4 % [facility] Lymphocytes Percent Auto 32.2 20 - 40 % [facility] Monocytes Percent Auto 7.0 2 - 11 % [facility] Eosinophils Percent Auto 1.2 0 - 4 % [facility] Basophils Percent Auto 0.5 0 - 2 % [facility] NRBC Pct Auto 0.0 0.0 - 0.2 /100WBC [facility] Neutrophils Absolute Auto 3.4 2.0 - 8.3 x10*3/uL [facility] Imm Gran Abs Auto 0.01 0.00 - 0.03 X10*3/uL [facility] Lymphocytes Absolute Auto 1.9 1.2 - 4.9 X10*3/uL [facility] Monocytes Absolute Auto 0.4 0.1 - 1.2 X10*3/uL [facility] Eosinophils Absolute Auto 0.1 0.0 - 0.4 X10*3/uL [facility] Basophils Absolute Auto 0.0 0.0 - 0.2 X10*3/uL [facility] NRBC Abs Auto 0.000 0.0 - 0.012 X10*3/uL [facility] 06/23/2024 6:45 AM EST 06/23/2024 6:45 AM EST Generic External Data Provider LAB BLOOD ORDERAB LES Final Result Performing Organization Address [facility]/ZIP Co de Phone Number [facility] [address] [place] [phone] * Iron And Total Iron Binding Capacity (06/23/2024 6:45 AM EST) Pathologist [facility] Iron 118 30 - 160 mcg/dL [facility] Total Iron Binding Capacity 269 228 - 428 mcg/dL [facility] Percent Iron Saturation 44 15 - 50 % [facility] Unsaturated Iron Binding 151 ug/dL [facility] 06/23/2024 6:45 AM EST 06/23/2024 6:45 AM EST us Generic External Data Provider LAB BLOOD ORDERAB LES Final Result Performing Organization Address [facility] Co de Phone Number [facility] [address] [place] [address] [phone] * Insulin (06/23/2024 6:45 AM EST) Insulin 5 2 - 29 uU/mL [facility] Comment:This test was perfor med [...] ORDERAB LES Final Result Performing Organization Address [facility] de Phone Number [facility] [address] [place] [address] [phone] * Zinc (06/23/2024 6:45 AM EST) Zinc 62 60 - 130 mcg/dL [facility] Comment:This test was develo ped and its analytical performancecharacteristics have been determined by [employer] [place], [place]. It hasnot been cleared or approved by the U.S. Food and DrugAdministration. This assay has been validated pursuantto the CLIA regulations and is used for clinicalpurposes.THIS TEST WAS PERFORMED AT:[employer]/[facility] [place] [address]GPMJWWFBRIAN APONTE MD,PHD 06/23/2024 6:45 AM EST 06/23/2024 6:45 AM EST Generic External Data Provider LAB BLOOD ORDERAB LES Final Result Performing Organization Address [facility] de Phone Number [facility] [address] [place] [address] [phone] * Vitamin A (06/23/2024 6:45 AM EST) Vitamin A (Retinol) 50 38 - 98 mcg/dL [facility] Comment:Vitamin supplementat ion within 24 hours prior toblood draw may affect the accuracy of the results.This test was developed and its analytical performancecharacteristics have been determined by [employer] [place], [place]. It hasnot been cleared or approved by the U.S. Food and DrugAdministration. This assay has been validated pursuantto the CLIA regulations and is used for clinicalpurposes.THIS TEST WAS PERFORMED AT:[employer]/[facility] [place] [address]MIQFARWBRIAN APONTE MD,PHD 06/23/2024 6:45 AM EST 06/23/2024 6:45 AM EST Generic External Data Provider LAB BLOOD ORDERAB LES Final Result Performing Organization Address [facility]/ZIP Co de Phone Number [facility] [address] [place] [phone] * C-reactive Protein (06/23/2024 6:45 AM EST) C Reactive Protein <0.10 < or = 0.50 mg/dL [facility] 06/23/2024 6:45 AM EST 06/23/2024 6:45 AM EST [facility] External Data Provider LAB BLOOD ORDERAB LES Final Result Performing Organization Address [facility] Co de Phone Number [facility] [facility] [address] [place] [phone] * Vitamin B1 (06/23/2024 6:45 AM EST) Vitamin B1 9 8 - 30 nmol/L [facility] Comment:Vitamin supplementat ion within 24 hours prior toblood draw may affect the accuracy of the results.This test was developed and its analytical performancecharacteristics have been determined by [facility] [place], [place]. It hasnot been cleared or approved by the U.S. Food and DrugAdministration. This assay has been validated pursuantto the CLIA regulations and is used for clinicalpurposes.THIS TEST WAS PERFORMED AT:[id number] [place] [address]HEURPBEBRIAN APONTE MD,PHD 06/23/2024 6:45 AM EST 06/23/2024 6:45 AM EST us Generic External Data Provider LAB BLOOD ORDERAB LES Final Result Performing Organization Address City/[facility] Co de Phone Number [facility] [address] [place] [phone] * Hemoglobin A1c (06/23/2024 6:45 AM EST) Hemoglobin A1c 4.7 <6.0 % [facility] Comment:Hemoglobin A1C Refer ence Range Adults: 4.8 - 6.0 % Non diabetic: < 6.0 % Goal: < 7.0 %Additional Action Suggested: > 8.0 %Note: Hemoglobin A1c results are invalid for patients with abnormal amounts of HbF. Blood transfusions may impact the HbA1c concentration in the patient sample. Estimated Average Glucose 88 mg/dL [facility] Comment:eAG = Estimated ave rage glucose which is %A1C expressed asaverage glucose, using the formula of the G3D-CxiczekSsreurj Glucose study (ADAG), Diabetes Care, Vol.31,#8,Aug. 2007 06/23/2024 6:45 AM EST 06/23/2024 6:45 AM EST us Generic External Data Provider LAB BLOOD ORDERAB LES Final Result Performing Organization Address [facility] Co de Phone Number [facility] [address] [place] [phone] * Ferritin (06/23/2024 6:45 AM EST) Ferritin 60 10 - 250 ng/mL [facility] 06/23/2024 6:45 AM EST 06/23/2024 6:45 AM EST us Generic External Data Provider LAB BLOOD ORDERAB LES Final Result Performing Organization Address [facility] Co de Phone Number [facility] [address] [place] [address] [phone] * (ABNORMAL) Lipid Panel, Standard (06/23/2024 6:45 AM EST) Triglycerides 88 <150 mg/dL [facility] Comment:Desirable Triglyceri de: less than 150 mg/dLBorderline High Triglyceride 150-199 mg/dLHigh Triglyceride: 200-499 mg/dLVery High Triglyceride: greater than or equal to 5OO mg/dL Cholesterol 178 <200 mg/dL [facility] Comment:Desirable Cholestero l: less than 200 mg/dLBorderline High Cholesterol: 200-239 mg/dLHigh Cholesterol: greater than 239 mg/dL LDL Cholesterol Calculated 111(H) <100 mg/dL [facility] Comment:Desirable LDL: less than 100 mg/dLNear Optimal/Above Optimal LDL: 110- 129 mg/dLBorderline High LDL: 130-159 mg/dLHigh LDL: 160-189 mg/dLVery High LDL: greater than or equal to 190 mg/dL HDL Cholesterol 50 >40 mg/dL [facility] Comment:Desirable HDL: great er than 40 mg/dL Note: This HDL assay may give artificially low results in patients with liver disease. 06/23/2024 6:45 AM EST 06/23/2024 6:45 AM EST Generic External Data Provider LAB BLOOD ORDERAB LES Final Result Performing Organization Address [facility] Co de Phone Number [facility] [address] [place] [address] [phone] * (ABNORMAL) Comprehensive Metabolic Panel (06/23/2024 6:45 AM EST) Sodium 141 135 - 145 mmol/L [facility] Potassium 4.0 3.3 - 5.1 mmol/L [facility] Chloride 111(H) 96 - 108 mmol/L [facility] Carbon Dioxide 24 22 - 29 mmol/L [facility] Anion Gap 10(L) 12 - 20 [facility] Urea Nitrogen (BUN) 15 9 - 16 mg/dL [facility] Creatinine, Serum 0.81 0.5 - 1.4 mg/dL [facility] Estimated Glomerular Filt Rate >60 [facility] Comment:Chronic Kidney Disea se: Estimated GFR < 60 mL/min/1.12s7Sxnjju Kidney Disease: Estimated GFR < 15 mL/min/1.73m2 Glucose 76 60 - 115 mg/dL [facility] Calcium 8.6 8.4 - 10.2 mg/dL [facility] Bilirubin, Total 0.5 0.0 - 1.0 mg/dL [facility] Aspartate Amino Transferase 17 5 - 31 U/L [facility] Alanine Aminotransferase 13 0 - 31 U/L [facility] Total Protein 6.8 6.5 - 8.0 g/dL [facility] Albumin Level 3.7 3.5 - 5.0 g/dL [facility] Alkaline Phosphatase 44 39 - 117 U/L [facility] 06/23/2024 6:45 AM EST 06/23/2024 6:45 AM EST us Generic External Data Provider LAB BLOOD ORDERAB LES Final Result Performing Organization Address [facility]/State/[facility] Co de Phone Number [facility] [address] [place] [phone] * BI Mammogram Screen w/ He w/ Implants Asael (06/06/2024 10:36 AM EST) Anatomical Region Laterality Modality Mammography 06/06/2024 10:3 6 AM EST Narrative 06/19/2024 10:04 AM EST ? [facility] ? [address] ?[place] [address] ? Mammography Report ? Signed ? Patient: Ryan,Velia ?MR#: [id number] ?? [id number] ? : 1980 ?Acct:[id number] ? Age/Sex: 44 / F ?ADM Date: 12/21/24 ? Loc: HO.MAMMO ? Attending Dr: Kika Brasher CNM ? Ordering Physician: Kika Brasher CNM ?Results: 2Beni ?? gn Findings ? Date of Service: 06/06/24 ?Follow Up: 1 Year From Orig ?? inal Mammogram ? Procedure(s): MM tomosynthesis screen imp BI ?? Accession Number(s): [id number] ? cc: Shauna Wallace DO; Anson,Kika Ponce CNM ? EXAMINATION: ?? MM SCREENING [...] DD/ 1036 ? TD/TT: 06/06/24 1056 ? Content Management Specialist: ? Procedure Note Donbrayanter, Image - 06/19/2024 [place] [facility] [address] [place] [address] Mammography Report Signed Patient: Manuel Davis#: [id number] : 1980Acct:[id number] Age/Sex: 44 / FADM Date: 06/06/24 Loc: HO.MAMMO Attending Dr: Kika Brasher CNM Ordering Physician: Kika Brasheresults: 2Beni gn Findings Date of Service: 06/06/24Follow Up: 1 Year From Orig inal Mammogram Procedure(s): MM tomosynthesis screen imp BI Accession Number(s): [id number] cc: Shauna Wallace DO; Kika Brasher CNM [...] 06/19/24 1001 DD/ 1036 TD/TT: 06/06/24 1056 Content Management Specialist: [facility] External Provider IMG BI PROCEDURES Final Result * Pap Smear (04/24/2024 12:00 AM EST) 04/24/2024 04/27/2024 9:3 0 AM EST [facility] - 04/29/2024 10:21 AM EST ----- ------- Name: Velia Davis ? Age/Sex: 44/F ? : 1980 Unit#: [id number] ?? Attend Dr: Kika Brasher CNM ?Re04/24/24 ?Status: DEP REF ? Location: HO.LAB ?Disch: ? ----- ------- SPEC : [id number] ?RECD: 04/27/24 ? STATUS: ??SOUT ? REQ NUM: [id number] ? GUALBERTO: 04/24/24- ? SUBM DR: Kika [...] Copies To: ?? Shauna Wallace DO ?? [facility] ?? [address] ?? [place] [address] ?? [phone] ?? Kika Brasher CNM ?? [facility] ?? [address] [facility], [address] ?? [place] [address] ?? [phone] ----- ------- Signed (signature on file) SHONNA Uribe ([facility]) 04/29/24 1021 ? ----- ------- ? END OF REPORT ? us Generic External Data Provider LAB CYTOLOGY DAVID CHEEMA Final Result [facility] [address] [place] [address] [phone] * HIV 1/2 ANTIGEN/ANTIBODY,FOURTH GENERATION W/RFL (08/02/2021 1:25 PM EST) Pathologist [facility] HIV-1/2 ANTIGEN AND ANTIBODIES, 4TH GENERATION W/ [...] ? For additional information please refer to [email or web address] (This link is being provided for informational/ educational purposes only.) ? The performance of this assay has not been clinically validated in patients less than 2 years old. ?? 08/02/2021 1:25 PM EST Shauna Wallace DO LAB BLOOD ORDERABLES Final R esult Performing Organization Address [facility] Co de Phone Number [facility] [address] * HEPATITIS C ANTIBODY RFLX (03/16/2020 1:25 PM EDT) Pathologist [facility] HEPATITIS C ANTIBODY NONREACTIVE NONREACTIVE [facility] Comment: Antibodies to HCV not detected; does not exclude early acute HCV infection. 03/16/2020 1:25 PM EDT Shauna Wallace DO HISTORICAL/NON ORDERABLE LAB S Final Result Performing Organization Address [facility] de Phone Number [facility] [address] * HPV mRNA E6/E7 (09/23/2018 12:17 PM EDT) HPV mRNA E6/E7 Not Detected NOT DETECTED [facility] Comment: This test was performed using the APTIMA(R) HPV Assay ([employer] This assay detects E6/E7 viral messenger RNA (mRNA) from 14 high-risk HPV types (16,18,31,33,35,39,45,51, 52,56,58,59,66,68). For additional information please refer to: http://[email or web address]/faq/NTU476j1 (This link is being provided for informational/ educational purposes only.) The analytical performance characteristics of this assay have been determined by [facility] [place]. The modifications have not been cleared or approved by the FDA. This assay has been validated pursuant to the CLIA regulations and is used for clinical purposes. Test Performed by [employer], [place], [address] [place], [place] Brian Aponte M.D., Ph.D., Director of Laboratories , CLIA [id number] Please note: ??Effective 02/27/2016, HPV testing will be performed using [employer] APTIMA test which targets mRNA. Detecting mRNA instead of DNA, as in older methods, offers significant improvements in specificity. 09/23/2018 12:1 7 PM EDT us Historical Provider HISTORICAL/NON ORDERABLE LABS Final Result Performing Organization Address City/State/[facility] Phone Number [facility] [address] from Last 3 Months or Most Recently Relevant to Health Maintenance Insurance BCBS PPO DENTAL - [facility] Care Teams Body Bumper Relationship Specialty Start Date End Date Shauna Wallace DO [address] [place] [phone] PCP - General Family Medicine 12/01/19
== END 2024-08-20 00:01 | disposition home or self-care (01) ==
LOC: HO.LNP
PROVIDERS: Visit Provider Internal Medicine
DX: K52.9 Noninfective gastroenteritis and colitis, unspecified (principal)
CPT/HCPCS: 87015; 87177; 87207; 87209; 87329

== ENCOUNTER 2024-08-21 | Outpatient (REF) | payer BC, SELFPAY | END 2024-08-21 00:01 | disposition home or self-care (01) | LOC: HO.LNP | PROVIDERS: Visit Provider Internal Medicine | DX: K52.9 Noninfective gastroenteritis and colitis, unspecified (principal) | CPT/HCPCS: 87015; 87177; 87209; 87272 ==

== ENCOUNTER 2024-08-22 | Outpatient (REF) | payer BC, SELFPAY | END 2024-08-22 00:01 | disposition home or self-care (01) | LOC: HO.LNP | PROVIDERS: Visit Provider Internal Medicine | DX: K52.9 Noninfective gastroenteritis and colitis, unspecified (principal) | CPT/HCPCS: 87177; 87209; 87329 ==

== ENCOUNTER 2024-08-23 | Outpatient (REF) | payer BC, SELFPAY ==
--- OUTSIDE RECORDS SUMMARY | 2024-08-24 07:41 | XMS_ITS | Encounter Summary ---
Author Organization [employer] Address [address] [place] [address] Care Team Providers Care Motorcycle Delivery Driver Name Role Phone Shauna Wallace DO Primary Care Provider [phone] Reason for Referral * Medications - Closed Specialty Diagnoses / Procedures Referred By Riaz t Referred To Contact Diagnoses BMI 35.0-35.9,adult Shauna Wallace DO [address] [place] [address] Phone: tel: fax: Referral ID Status Reason Start Date Expiration Date Visits Re quested Visits Authorized [id number] Closed 1 1 * Medications - Closed Specialty Diagnoses / Procedures Referred By Riaz gavin Referred To Contact Diagnoses BMI 35.0-35.9,adult Shauna Wallace DO [address] [place] [address] Phone: tel: fax: Referral ID Status Reason Start Date Expiration Date Visits Re quested Visits Authorized [id number] Closed 1 1 Encounter Details Date Type Department Care Team (Late st Contact Info) Description 08/17/2024 11:45 AM EST Office Visit [facility] [address] [place] [address] Shauna Wallace DO [address] [place], [place] [phone] Single pelvic kidney (Primary Dx); Change in [...] Description 09/16/2024 2:00 PM EDT Office Visit [facility] ADULT D[facility]AL [address] [place] [address] Gaurav, Deb [address] [place] [address] documented as of this encounter Visit Diagnoses Diagnosis Single pelvic kidney- Primary Change in bowel habits Other symptoms involving digestive system Right ear pain Unspecified otalgia BMI 35.0-35.9,adult documented in this encounter Additional Health Concerns Assessment Noted Time PHQ-9 Depression Total Score: 0 07/26/19 23 11:44 AM EST documented as of this encounter Care Teams Motorcycle Delivery Driver Relationship Specialty Start Date End Date Shauna Wallace DO [address] [place] [address] PCP - General Family Medicine 12/01/19 documented as of this encounter
--- OUTSIDE RECORDS SUMMARY | 2024-08-24 07:41 | XMS_ITS | Encounter Summary ---
Author Organization [facility] Address [address] [place] [address] [address] [place] [address] Care Team Providers Care Scoreboard Operator Name Role Phone Shauna Wallace DO Primary Care Provider [phone] Encounter Details Date Type Department Care Team (Latest Contact Info) Description 03/26/2019 Abstract [facility] CONVERSIONS Dental, Provider, DDS Social [...] Description 09/16/2024 2:00 PM EDT Office Visit [facility] ADULT DENTAL [address] [place] [address] Gaurav, Deb [address] [place] [address] documented as of this encounter Visit Diagnoses Not on filedocumented in this encounter Care Teams Scoreboard Operator Relationship Specialty Start Date End Date Shauna Wallace DO [address] [place] [address] PCP - General Family Medicine 12/01/19 documented as of this encounter
--- OUTSIDE RECORDS SUMMARY | 2024-08-24 07:41 | XMS_ITS | Encounter Summary ---
Author Organization [employer] Address [address] [place] [address] [address] [place] [address] Care Team Providers Care Cat Swamper Name Role Phone Shauna Wallace DO Primary Care Provider + [phone] Reason for Visit * Reason Comments Med Refill Encounter Details Date Type Department Care Team ([facility] st Contact Info) Description 08/18/2024 Refill [facility] [address] [place], [place] [phone] Shauna Wallace DO [address] [place] [address] Nonintractable chronic migraine Social History Tobacco Use Types Packs/Day Years [...] Description 09/16/2024 2:00 PM EDT Office Visit [facility] ADULT DENTAL [address] [place] [address] Osmin Nolascoaris [address] [place] [address] documented as of this encounter Visit Diagnoses Diagnosis Nonintractable chronic migraine documented in this encounter Additional Health Concerns Assessment Noted Time PHQ-9 Depression Total Score: 0 07/26/19 23 11:44 AM EST documented as of this encounter Care Teams Cat Swamper Relationship Specialty Start Date End Date Shauna Wallace DO [address] [place] [address] PCP - General Family Medicine 12/01/19 documented as of this encounter
--- OUTSIDE RECORDS SUMMARY | 2024-08-24 07:41 | XMS_ITS | Clinical Summary ---
Author Organization [employer] Address [address] [place] [address] [address] [place] [address] Care Team Providers Care Ceramic Artist Name Role Phone PriscillaShauna jacobs Primary Care Provider [phone] Allergies Active Allergy Reactions Criticality Noted Date [...] (pain). 100 g 3 04/24/20 24 Active polycarbophil (Fibercon) 625 MG tablet Take [...] 1 (one) time per week. 2 mL 3 08/18/19 25 Active phentermine 15 MG capsuleIndicat ions:BMI 35.0-35.9,adul t Take 1 capsule (15 mg) by mouth before breakfast. 30 capsule 08/18/19 25 025 Active pseudoephedrin e ER (Sudafed-12 Hour) 120 MG 12 hr tablet Take 1 tablet (120 mg) by mouth every 12 (twelve) hours. Do not crush, chew, or split. 20 tablet 08/18/19 25 026 Active ZOLMitriptan (Zomig) 2.5 MG tabletIndicati ons:Nonintract able chronic migraine TAKE 1 TABLET BY MOUTH AT ONSET OF MIGRAINE. MAY REPEAT ONCE AFTER 2 HOURS IF NEEDED. DO NOT EXCEED 2 TABLETS PER 24 HOURS. 9 tablet 1 08/20/19 25 Active baclofen (Lioresal) 10 MG tabletIndicati ons:Neck pain Take 1 tablet (10 mg) by mouth if needed in the morning, at noon, and at bedtime for muscle spasms. 60 tablet 1 07/26/19 23 025 Discontinued ZOLMitriptan (Zomig) 2.5 MG tabletIndicati ons:Nonintract able chronic migraine TAKE 1 TABLET BY MOUTH AT ONSET OF MIGRAINE. MAY REPEAT ONCE AFTER 2 HOURS IF NEEDED, DO NOT EXCEED 2 TABLETS / 24 HOURS 9 tablet 1 06/22/19 25 025 Discontinued pseudoephedrin e ER (Sudafed-12 Hour) 120 MG [...] she is advised to schedule with her gas meter mechanic within 6 months. Lipids/FBS: UTD, next one [...] Encounters Date Type Department Care Team Description 08/18/[address] [facility] [address] [place] [address] Shauna Wallace DO Nonintractable chronic migraine 08/17/2024 11:45 AM EST Office Visit [facility] [address] [place] [address] Shauna Wallace DO Single pelvic kidney (Primary Dx); Change in bowel habits; Right ear pain; BMI 35.0-35.9,adult 08/17/2024 Orders Only GENERIC EXTERNAL DATA DEPARTMENT Provider, Generic External Data 08/17/2024 Travel 07/24/2024 10:45 AM EST Office Visit [facility] [address] [place] [address] Marjan Ritchie MD Encounter for preventive health examination (Primary Dx); Rheumatoid arthritis, involving unspecified site, unspecified whether rheumatoid factor present ([facility]); Mild intermittent asthma without complication; Class 1 obesity without serious comorbidity with body mass index (BMI) of 34.0 to 34.9 in adult, unspecified obesity type; Hyperchloremia; Dietary counseling; Exercise counseling 07/24/2024 Travel 07/13/2024 Patient Outreach [facility] [address] [place] [address] Shauna Wallace DO Pre-visit Planning (Pre visit planning LVM ) 06/25/2024 3:00 PM EST Office Visit [facility] DENT[facility] [address] [place] [address] Anton Forbes DDS Dental caries on smooth surface limited to enamel (Primary Dx) 06/25/2024 Travel 06/23/[address] [facility] [address] [facility] [place] [address] Shauna Wallace, Lab Orders 06/23/2024 Orders Only GENERIC EXTERNAL DATA DEPARTMENT Provider, Generic External Data 06/22/2024 10:15 AM EST Telemedicine [facility] [address] [facility] [place] [address] Shauna Wallace, Change in bowel habits (Primary Dx); Gastroesophageal reflux disease, unspecified whether esophagitis present; Shakiness; Nonintractable chronic migraine 06/22/2024 Travel 06/15/[address] [facility] [address] [place] [address] Shauna Wallace DO 06/12/2024 Telephone [facility] [address] [place] [address] Shauna Wallace, insurance 06/06/2024 Orders Only [facility] External Provider, [facility] from Last 3 Months Immunizations Name Administration [...] 2:00 PM EDT Office Visit [facility] [address] [place] [address] Gaurav, Deb [address] [place] [address] Health Maintenance Due Date Last Done Comments [...] Procedure Name Priority Date/Time Associated Diagnosis Comments IMMUNOGLOBULIN A Routine 08/17/2024 2:40 PM EST TISSUE TRANSGLUTAMINASE AB, IGA Routine 08/17/2024 2:40 PM EST VITAMIN B12/FOLATE, SERUM PANEL Routine 08/17/2024 2:40 [...] IMPLANTS ASAEL Routine 06/06/2024 10:36 AM EST Full PROPHYLAXIS - ADULT Routine 024 2:00 PM EST Dental calculus Periodontal disease BITEWINGS - 4 RADIOGRAPHIC IMAGES Routine 05/25/2024 2:00 PM EST Tipped teeth Dental calculus Periodontal disease PERIODIC ORAL EVALUATION - ESTABLISHED PATIENT Routine 05/25/2024 2:00 PM EST PAP SMEAR Routine 04/24/2024 12:00 AM [...] Vitamin B12 279 200 - 900 pg/mL [facility] Comment:NORMAL 200-900 PG/ML INDETERMINATE 160-199 PG/ML DEFICIENT < 160 PG/ML Folate 12.1 > or = 4.0 ng/mL [facility] Comment:Reference Values:> o r = 4.0 ng/mL< 4.0 ng/mL suggests folate deficiency Methotrexate, aminopterin and folinic acid(leucovorin) are chemotherapeutic agents whose molecularstructures are similar to folate; therefore, the Architectfolate assay cannot be used for patients using these drugs. 08/17/2024 2:40 PM EST 08/17/2024 2:40 PM EST us Generic External Data Provider LAB BLOOD ORDERAB LES Final Result Performing Organization Address [facility] Co de Phone Number [facility] [address] [place] [phone] * TSH with Reflex to Free T4 (08/17/2024 2:40 PM EST) Only the most recent of2 resultswithin the time period is included. TSH reflex Free T4 1.56 0.32 - 4.0 uIU/mL [facility] 08/17/2024 2:40 PM EST 08/17/2024 2:40 PM EST Generic External Data Provider LAB BLOOD ORDERAB LES Final Result Performing Organization Address City/[facility]/ZIP Co de Phone Number [facility] [address] [place] [phone] * Tissue Transglutaminase Antibody, IgA (08/17/2024 2:40 PM EST) Transglutaminase IgA <1.0 U/mL [facility] Comment:Value Interpretation ----- <15.0 Antibody not detected> or = 15.0 Antibody detectedTHIS TEST WAS PERFORMED AT:[facility] [place] [id number] BARRY MD 08/17/2024 2:40 PM EST 08/17/2024 2:40 PM EST us Generic External Data Provider LAB BLOOD ORDERAB LES Final Result [facility] [address] [place] [phone] * CBC (08/17/2024 2:40 PM EST) Pathologist [facility] White Blood Count 5.9 4.8 - 10.8 X10*3/uL [facility] Red Blood Count 4.54 4.20 - 5.50 X10*6/uL [facility] Hemoglobin 12.4 12.0 - 16.0 g/dl [facility] Hematocrit 38.1 37.0 - 47.0 % [facility] Mean Corpuscular Volume 83.9 80.0 - 98.0 fL [facility] Mean Corpuscular Hemoglobin 27.3 27.0 - 33.0 pg [facility] Mean Corpuscular HGB Conc 32.5 31.0 - 35.0 g/dl [facility] Red Cell Distribution Width 12.9 11.0 - 16.0 % [facility] Platelet Count 213 160 - 400 X10*3/uL [facility] Mean Platelet Volume 10.7 9.4 - 12.3 fL [facility] NRBC Pct Auto 0.0 0.0 - 0.2 /100WBC [facility] NRBC Abs Auto 0.000 0.0 - 0.012 X10*3/uL [facility] 08/17/2024 2:40 PM EST 08/17/2024 2:40 PM EST us Generic External Data Provider LAB BLOOD ORDERAB LES Final Result Performing Organization Address [facility]/ZIP Co de Phone Number [facility] [address] [place] [phone] * Immunoglobulin A (08/17/2024 2:40 PM EST) Immunoglobulin A 246 47 - 310 mg/dL [facility] Comment:THIS TEST WAS PERFOR MED AT:[facility] [place] [phone] BARRY MD 08/17/2024 2:40 PM EST 08/17/2024 2:40 PM EST Generic External Data Provider LAB BLOOD ORDERAB LES Final Result Performing Organization Address [facility] de Phone Number [facility] [address] [place] [phone] * US Abdomen Complete (08/01/2024 7:43 AM EST) Anatomical Region Laterality Modality Abdomen Ultrasound 08/01/2024 7:43 AM EST Narrative 08/01/2024 7:45 AM EST ? [facility] ?[address] ?[place] [address] ? Ultrasound Report ? Signed ? Patient: Ryan,Velia ?MR#: [id number] ?? [id number] ? : 1980 ?Acct:[id number] ? Age/Sex: 44 / F ?ADM Date: 02/14/25 ? Loc: HO.US ? Attending Dr: Shauna Wallace DO ? Ordering Physician: Shauna Wallace DO ?? Date of Service: 07/31/24 ?? Procedure(s): US abdomen complete ?? Accession Number(s): [id number] ? cc: Shauna Wallace DO ? CLINICAL [...] signed by Bruce Gomez MD in OV> ?08/01/24744 ? DD/ 2 ? TD/TT: 08/01/24742 ? Structurer: ? Procedure Note Trino Shukla - 08/01/[address] [address] Ultrasound Report Signed Patient: Velia DavisMR#: [id number] : 1980Acct:[id number] Age/Sex: 44 / FADM Date: 07/31/24 Loc: HO.US Attending Dr: Shauna Wallace DO Ordering Physician: Shauna Wallace DO Date of Service: 07/31/24 Procedure(s): US abdomen complete Accession Number(s): [id number] cc: Shauna Wallace DO CLINICAL HISTORY: reflux [...] Gomez MD in OV> 08/01/24 0745 DD/ 0743 TD/TT: 08/01/24 0743 Structurer: Shauna Wallace DO IMG US PROCEDURES Edited Res ult - Final * C-Peptide (07/09/2024 7:11 AM EST) Only the most recent of2 resultswithin the time period is included. C-Peptide 2.09 0.80 - 3.85 ng/mL [facility] Comment:THIS TEST WAS PERFOR MED AT:[facility] [place] [phone] BARRY MD Blood Venous blood specimen / Unknown 07/09/2024 7:11 AM EST 07/09/2024 7:11 AM EST us Shauna Wallace DO LAB BLOOD ORDERABLES Final R esult [facility] [address] [place] [phone] * HCV RNA BY PCR, QN RFX JENNIFER (06/23/2024 2:36 PM EST) HCV RNA PCR QN <15 NOT DETECTED NOT DETECTED IU/mL [facility] HCV RNA PCR QN <1.18 NOT DETECTED NOT DETECTED Log IU/mL [facility] HCV RNA COMMENT SEE NOTE [facility] Comment:For additional infor mation, please refer tohttp://education.Turpitude/faq/ONE42q9(This link is being provided for informational/Educational purposes only.)THIS TEST WAS PERFORMED AT:[facility] [place] [phone] BARRY MD HCV RNA GENOTYPE,LIPA TNP [facility] Comment:Test not indicated. 06/23/2024 2:36 PM EST 06/23/2024 2:36 PM EST us Shauna Wallace DO LAB BLOOD ORDERABLES Final R esult [facility] [address] [place] [phone] * HIV-1 RNA, Quantitative, Real-Time PCR with Reflex to Genotype (RTI, PI, Integrase) (06/23/2024 2:36 PM EST) Pathologist [facility] HIV RNA PCR Qn Copies Not Detected Copies/mL [facility] HIV RNA PCR Qn Log Copies Not Detected Log cps/mL [facility] Comment:Reference Range: Not Detected copies/mL Not Detected Log copies/mLThe test was performed using Real-Time Polymerase ChainReaction.Reportable Range: 20 copies/mL to 10,000,000 copies/mL(1.30 Log copies/mL to 7.00 Log copies/mL).THIS TEST WAS PERFORMED AT:[id number] [place] [id number] APONTE MD,PHD HIV-1 Genotype Progressive [facility] HIV 1 Genotype [facility] Comment:Test not indicated. 06/23/2024 2:36 PM EST 06/23/2024 2:36 PM EST Shauna Wallace DO LAB BLOOD ORDERABLES Final R esult Performing Organization Address City/[facility] Co de Phone Number [facility] [address] [place] [phone] * Beta-Hydroxybutyrate (06/23/2024 2:36 PM EST) Beta-Hydroxybut yrate 0.09 0.02 - 0.27 mmol/L [facility] Blood Venous blood specimen / Unknown 06/23/2024 2:36 PM EST 06/23/2024 2:36 PM EST us Shauna Wallace DO LAB BLOOD ORDERABLES Final R esult Performing Organization Address [facility] Co de Phone Number [facility] [address] [place] [phone] * Hepatitis A Antibody, Total (06/23/2024 2:36 PM EST) Hepatitis A Antibody IgG Nonreactive Nonreactive [facility] Blood Venous blood specimen / Unknown 06/23/2024 2:36 PM EST 06/23/2024 3:21 PM EST Shauna Wallace DO LAB BLOOD ORDERABLES Final R esult Performing Organization Address [facility] Co de Phone Number [facility] [address] [place] [phone] * Hepatitis B surface antigen, EIA (06/23/2024 2:36 PM EST) Hepatitis B Surface Ag Negative Negative [facility] Blood Venous blood specimen / Unknown 06/23/2024 2:36 PM EST 06/23/2024 2:36 PM EST Shauna Wallace DO LAB BLOOD ORDERABLES Final R esult Performing Organization Address [facility] Co de Phone Number [facility] [address] [place] [phone] * Hepatitis B Core Antibody, Total (06/23/2024 2:36 PM EST) Hepatitis B Core Antibody Nonreactive Nonreactive [facility] Blood Venous blood specimen / Unknown 06/23/2024 2:36 PM EST 06/23/2024 2:36 PM EST Shauna Wallace DO LAB BLOOD ORDERABLES Final R esult Performing Organization Address [facility] Phone Number [facility] [address] [place] [phone] * RPR (Monitor) with Reflex to??Titer (06/23/2024 2:36 PM EST) RPR (Monitor) w/Refl Titer NON-REACTI VE NON-REACT JUSTA [facility] Comment:THIS TEST WAS PERFOR MED AT:[facility] [place] [phone] BARRY MD Rapid Plasma Reagin Ab Titer TNP [facility] Blood Venous blood specimen / Unknown 06/23/2024 2:36 PM EST 06/23/2024 2:36 PM EST Shauna Wallace DO LAB BLOOD ORDERABLES Final R esult Performing Organization Address [facility] de Phone Number [facility] [address] [place] [phone] * Hepatitis B Surface Antibody, Qualitative (06/23/2024 2:36 PM EST) Pathologist [facility] ~Hepatitis B Surface Antibody REACTIVE Nonreactive [facility] Comment:REACTIVE: > 11.99 mI U/mL Blood Venous blood specimen / Unknown 06/23/2024 2:36 PM EST 06/23/2024 2:36 PM EST Shauna Rodrigo DO LAB BLOOD ORDERABLES Final R esult Performing Organization Address City/[facility]/ZIP Co de Phone Number [facility] [address] [place] [phone] * T4, Free (06/23/2024 2:36 PM EST) [facility] Free T4 (Free Thyroxine) 0.97 0.71 - 1.85 ng/dL [facility] Blood Venous blood specimen / Unknown 06/23/2024 2:36 PM EST 06/23/2024 2:36 PM EST Shauna Rodrigo DO LAB BLOOD ORDERABLES Final R esult Performing Organization Address [facility] Co de Phone Number [facility] [address] [place] [phone] * Bilirubin, Direct (06/23/2024 2:36 PM EST) [facility] Bilirubin, Direct <0.1 0.0 - 0.5 mg/dL [facility] 06/23/2024 2:36 PM EST 06/23/2024 2:36 PM EST Shauna Gibsonamna LAB BLOOD ORDERABLES Final R esult Performing Organization Address City/[facility] Co de Phone Number [facility] [address] [place] [phone] * Chlamydia/N. Gonorrhoeae RNA, TMA, Urogenitial (06/23/2024 1:56 PM EST) [facility] CT PCR NOT DETECTED Not Detect. [facility] Comment:A not detected test result does [...] psychologicalconsequences. NG PCR NOT DETECTED Not Detect. [facility] Comment:A not detected test result does [...] PM EST 06/23/2024 2:40 PM EST Narrative [facility] - 06/23/2024 4:21 PM EST Urine us Shauna Wallace DO LAB MICROBIOLOGY - GENERAL O RDERABLES Final Result [facility] [address] [place] [phone] * Stool - Gastrointestinal panel (06/23/2024 7:26 AM EST) Campylobacter Not Detected Not Detect. [facility] Plesiomonas shigelloides Not Detected Not Detect. [facility] Salmonella Not Detected Not Detect. [facility] Vibrio Not Detected Not Detect. [facility] Vibrio cholerae Not Detected Not Detect. [facility] YERSINIA ENTEROCOLITICA Not Detected Not Detect. [facility] Enteroaggregative E. coli (EAEC) Not Detected Not Detect. [facility] Enteropathogenic E. coli (EPEC) Not Detected Not Detect. [facility] Enterotoxigenic E. coli (ETEC) lt/st Not Detected Not Detect. [facility] Shiga-like toxin-producing E. coli (STEC) stx1/stx2 Not Detected Not Detect. [facility] E coli O157 Not applicable Not Detect. [facility] Comment:E. coli containing t he O157 antigen are a subset ofShiga-like toxin- producing E. coli (STEC). Shigella/Enteroinvasive E. coli (EIEC) Not Detected Not Detect. [facility] Cryptosporidium Not Detected Not Detect. [facility] Cyclospora cayetanensis Not Detected Not Detect. [facility] Entamoeba histolytica Not Detected Not Detect. [facility] Giardia lamblia Not Detected Not Detect. [facility] Adenovirus F 40/41 Not Detected Not Detect. [facility] Astrovirus Not Detected Not Detect. [facility] Norovirus GI/GII Not Detected Not Detect. [facility] Rotavirus A Not Detected Not Detect. [facility] Sapovirus Not Detected Not Detect. [facility] Comment: All results must be correlated [...] assay is performed by Multiplexed PCR, utilizing Realeyes 3D Array. Stool Rectal contents / Unknown 06/23/2024 7:26 AM EST 06/25/2024 8:54 AM EST us Shauna Wallace DO LAB MICROBIOLOGY - GENERAL O RDERABLES Final Result [facility] [address] [place] [address] [phone] * Ova and Parasites (06/23/2024 7:26 AM EST) Ova and Parasite Trichrome SEE NOTE [facility] Comment: ??OVA AND PARASITES, CONC AND PERM SMEAR ??Micro Number: ?[id number] ??Test Status: ? Final ??Specimen Source: ?? [...] For additional information, please refer to ? https://Kaltura.Turpitude/faq/YFW001 ? (This link is being provided for informational/ ? educational purposes only.)THIS TEST WAS PERFORMED AT:[facility] [address] [place], [place] ??[id number] JUDSON,MD Stool Rectal contents / Unknown 06/23/2024 7:26 AM EST 06/25/2024 8:54 AM EST us Shauna Wallace DO LAB MICROBIOLOGY - GENERAL O RDERABLES Final Result [facility] [address] [place] [phone] * (ABNORMAL) Vitamin D, 25-Hydroxy, Total, Immunoassay (06/23/2024 6:45 AM EST) Vitamin D 25-OH Total 20.8(L) >30 ng/mL [facility] Comment:Health Based Referen ce Values*< 20 ng/mL Ccpldgfxk16-46 ng/mL Insufficient> 30 ng/mL Sufficient*Nathanael MURO. N [...] Provider LAB BLOOD ORDERAB LES Final Result [facility] [address] [place] [phone] * CBC auto differential (06/23/2024 6:45 AM EST) White Blood Count 5.8 4.8 - 10.8 X10*3/uL [facility] Red Blood Count 4.58 4.20 - 5.50 X10*6/uL [facility] Hemoglobin 12.4 12.0 - 16.0 g/dl [facility] Hematocrit 38.4 37.0 - 47.0 % [facility] Mean Corpuscular Volume 83.8 80.0 - 98.0 fL [facility] Mean Corpuscular Hemoglobin 27.1 27.0 - 33.0 pg [facility] Mean Corpuscular HGB Conc 32.3 31.0 - 35.0 g/dl [facility] Red Cell Distribution Width 12.9 11.0 - 16.0 % [facility] Platelet Count 199 160 - 400 X10*3/uL [facility] Mean Platelet Volume 10.3 9.4 - 12.3 fL [facility] Neutrophils Percent Auto 58.9 45 - 73 % [facility] Imm Gran Pct Auto 0.2 0.0 - 0.4 % [facility] Lymphocytes Percent Auto 32.2 20 - 40 % [facility] Monocytes Percent Auto 7.0 2 - 11 % [facility] Eosinophils Percent Auto 1.2 0 - 4 % [facility] Basophils Percent Auto 0.5 0 - 2 % [facility] NRBC Pct Auto 0.0 0.0 - 0.2 /100WBC [facility] Neutrophils Absolute Auto 3.4 2.0 - 8.3 x10*3/uL [facility] Imm Gran Abs Auto 0.01 0.00 - 0.03 X10*3/uL [facility] Lymphocytes Absolute Auto 1.9 1.2 - 4.9 X10*3/uL [facility] Monocytes Absolute Auto 0.4 0.1 - 1.2 X10*3/uL [facility] Eosinophils Absolute Auto 0.1 0.0 - 0.4 X10*3/uL [facility] Basophils Absolute Auto 0.0 0.0 - 0.2 X10*3/uL [facility] NRBC Abs Auto 0.000 0.0 - 0.012 X10*3/uL [facility] 06/23/2024 6:45 AM EST 06/23/2024 6:45 AM EST Generic External Data Provider LAB BLOOD ORDERAB LES Final Result Performing Organization Address [facility]/ZIP Co de Phone Number [facility] [address] [place] [phone] * Iron And Total Iron Binding Capacity (06/23/2024 6:45 AM EST) Pathologist [facility] Healthcare Iron 118 30 - 160 mcg/dL [facility] Total Iron Binding Capacity 269 228 - 428 mcg/dL [facility] Percent Iron Saturation 44 15 - 50 % [facility] Unsaturated Iron Binding 151 ug/dL [facility] 06/23/2024 6:45 AM EST 06/23/2024 6:45 AM EST us Generic External Data Provider LAB BLOOD ORDERAB LES Final Result Performing Organization Address [facility] Co de Phone Number [facility] [address] [place] [phone] * Insulin (06/23/2024 6:45 AM EST) Insulin 5 2 - 29 uU/mL [facility] Comment:This test was perfor med using the Maahjan chemiluminescentmethod. Values obtained from different assay methods [...] ORDERAB LES Final Result Performing Organization Address [facility] de Phone Number [facility] [address] [place] [phone] * Zinc (06/23/2024 6:45 AM EST) Zinc 62 60 - 130 mcg/dL [facility] Comment:This test was develo ped and its analytical performancecharacteristics have been determined by [employer] [place], [place]. It hasnot been cleared or approved by the U.S. Food and DrugAdministration. This assay has been validated pursuantto the CLIA regulations and is used for clinicalpurposes.THIS TEST WAS PERFORMED AT:[facility] [place] [address]JDILFIYBRIAN APONTE MD,PHD 06/23/2024 6:45 AM EST 06/23/2024 6:45 AM EST Generic External Data Provider LAB BLOOD ORDERAB LES Final Result Performing Organization Address [facility] de Phone Number [facility] [address] [place] [phone] * Vitamin A (06/23/2024 6:45 AM EST) Vitamin A (Retinol) 50 38 - 98 mcg/dL [facility] Comment:Vitamin supplementat ion within 24 hours prior toblood draw may affect the accuracy of the results.This test was developed and its analytical performancecharacteristics have been determined by [employer] [place]. It hasnot been cleared or approved by the U.S. Food and DrugAdministration. This assay has been validated pursuantto the CLIA regulations and is used for clinicalpurposes.THIS TEST WAS PERFORMED AT:[facility] [place] [address]DZINBYXBRIAN APONTE MD,PHD 06/23/2024 6:45 AM EST 06/23/2024 6:45 AM EST Generic External Data Provider LAB BLOOD ORDERAB LES Final Result Performing Organization Address [facility]/ZIP Co de Phone Number [facility] [address] [place] [phone] * C-reactive Protein (06/23/2024 6:45 AM EST) C Reactive Protein <0.10 < or = 0.50 mg/dL [facility] 06/23/2024 6:45 AM EST 06/23/2024 6:45 AM EST [facility] External Data Provider LAB BLOOD ORDERAB LES Final Result Performing Organization Address [facility] Co de Phone Number [facility] [address] [place] [phone] * Vitamin B1 (06/23/2024 6:45 AM EST) Vitamin B1 9 8 - 30 nmol/L [facility] Comment:Vitamin supplementat ion within 24 hours prior toblood draw may affect the accuracy of the results.This test was developed and its analytical performancecharacteristics have been determined by [employer] [place], [place]. It hasnot been cleared or approved by the U.S. Food and DrugAdministration. This assay has been validated pursuantto the CLIA regulations and is used for clinicalpurposes.THIS TEST WAS PERFORMED AT:[id number] [place] [address]NOSHVEXBRIAN APONTE MD,PHD 06/23/2024 6:45 AM EST 06/23/2024 6:45 AM EST us Generic External Data Provider LAB BLOOD ORDERAB LES Final Result Performing Organization Address City/[facility] Co de Phone Number [facility] [address] [place] [phone] * Hemoglobin A1c (06/23/2024 6:45 AM EST) Hemoglobin A1c 4.7 <6.0 % [facility] Comment:Hemoglobin A1C Refer ence Range Adults: 4.8 - 6.0 % Non diabetic: < 6.0 % Goal: < 7.0 %Additional Action Suggested: > 8.0 %Note: Hemoglobin A1c results are invalid for patients with abnormal amounts of HbF. Blood transfusions may impact the HbA1c concentration in the patient sample. Estimated Average Glucose 88 mg/dL [facility] Comment:eAG = Estimated ave rage glucose which is %A1C expressed asaverage glucose, using the formula of the S4I-TufilqjBkjirvt Glucose study (ADAG), Diabetes Care, Vol.31,#8,Aug. 2007 06/23/2024 6:45 AM EST 06/23/2024 6:45 AM EST us Generic External Data Provider LAB BLOOD ORDERAB LES Final Result Performing Organization Address [facility] Co de Phone Number [facility] [address] [place] [phone] * Ferritin (06/23/2024 6:45 AM EST) Ferritin 60 10 - 250 ng/mL [facility] 06/23/2024 6:45 AM EST 06/23/2024 6:45 AM EST us Generic External Data Provider LAB BLOOD ORDERAB LES Final Result Performing Organization Address [facility] Co de Phone Number [facility] [address] [place] [phone] * (ABNORMAL) Lipid Panel, Standard (06/23/2024 6:45 AM EST) Triglycerides 88 <150 mg/dL [facility] Comment:Desirable Triglyceri de: less than 150 mg/dLBorderline High Triglyceride 150-199 mg/dLHigh Triglyceride: 200-499 mg/dLVery High Triglyceride: greater than or equal to 5OO mg/dL Cholesterol 178 <200 mg/dL [facility] Comment:Desirable Cholestero l: less than 200 mg/dLBorderline High Cholesterol: 200-239 mg/dLHigh Cholesterol: greater than 239 mg/dL LDL Cholesterol Calculated 111(H) <100 mg/dL [facility] Comment:Desirable LDL: less than 100 mg/dLNear Optimal/Above Optimal LDL: 110- 129 mg/dLBorderline High LDL: 130-159 mg/dLHigh LDL: 160-189 mg/dLVery High LDL: greater than or equal to 190 mg/dL HDL Cholesterol 50 >40 mg/dL [facility] Comment:Desirable HDL: great er than 40 mg/dL Note: This HDL assay may give artificially low results in patients with liver disease. 06/23/2024 6:45 AM EST 06/23/2024 6:45 AM EST Generic External Data Provider LAB BLOOD ORDERAB LES Final Result Performing Organization Address [facility] Co de Phone Number [facility] [address] [place] [phone] * (ABNORMAL) Comprehensive Metabolic Panel (06/23/2024 6:45 AM EST) Sodium 141 135 - 145 mmol/L [facility] Potassium 4.0 3.3 - 5.1 mmol/L [facility] Chloride 111(H) 96 - 108 mmol/L [facility] Carbon Dioxide 24 22 - 29 mmol/L [facility] Anion Gap 10(L) 12 - 20 [facility] Urea Nitrogen (BUN) 15 9 - 16 mg/dL [facility] Creatinine, Serum 0.81 0.5 - 1.4 mg/dL [facility] Estimated Glomerular Filt Rate >60 [facility] Comment:Chronic Kidney Disea se: Estimated GFR < 60 mL/min/1.21k4Vgbata Kidney Disease: Estimated GFR < 15 mL/min/1.73m2 Glucose 76 60 - 115 mg/dL [facility] Calcium 8.6 8.4 - 10.2 mg/dL [facility] Bilirubin, Total 0.5 0.0 - 1.0 mg/dL [facility] Aspartate Amino Transferase 17 5 - 31 U/L [facility] Alanine Aminotransferase 13 0 - 31 U/L [facility] Total Protein 6.8 6.5 - 8.0 g/dL [facility] Albumin Level 3.7 3.5 - 5.0 g/dL [facility] Alkaline Phosphatase 44 39 - 117 U/L [facility] 06/23/2024 6:45 AM EST 06/23/2024 6:45 AM EST us Generic External Data Provider LAB BLOOD ORDERAB LES Final Result Performing Organization Address [facility]/State/[facility] Co de Phone Number [facility] [address] [place] [phone] * BI Mammogram Screen w/ He w/ Implants Asael (06/06/2024 10:36 AM EST) Anatomical Region Laterality Modality Mammography 06/06/2024 10:3 6 AM EST Narrative 06/19/2024 10:04 AM EST ? [facility] ? [address] ?[place] [address] ? Mammography Report ? Signed ? Patient: Ryan,Velia ?MR#: [id number] ?? [id number] ? : 1980 ?Acct:[id number] ? Age/Sex: 44 / F ?ADM Date: 12/21/24 ? Loc: HO.MAMMO ? Attending Dr: Kika Brasher CNM ? Ordering Physician: Kika Brasher CNM ?Results: 2Beni ?? gn Findings ? Date of Service: 06/06/24 ?Follow Up: 1 Year From Orig ?? inal Mammogram ? Procedure(s): MM tomosynthesis screen imp BI ?? Accession Number(s): [id number] ? cc: Shauna Wallace DO; Meagher,Kika Ponce CNM ? EXAMINATION: ?? MM SCREENING DIGITAL [...] ??Anju Freeman DO ??06/19/2024 10:01 AM EST ? Dictated By: ?Anju Freeman DO ? Signed By: ?<Electronically signed by Anju Freeman, DO in OV> ? 06/19/24 1001 ? DD/ 1036 ? TD/TT: 06/06/24 1056 ? Structurer: ? Procedure Note Donbrayanter, Image - 06/19/2024 [place] [facility] [address] [place] [address] Mammography Report Signed Patient: Manuel Davis#: [id number] : 1980Acct:[id number] Age/Sex: 44 / FADM Date: 06/06/24 Loc: HO.MAMMO Attending Dr: Kika Brasher CNM Ordering Physician: Kika Brasheresults: 2Beni gn Findings Date of Service: 06/06/24Follow Up: 1 Year From Orig inal Mammogram Procedure(s): MM tomosynthesis screen imp BI Accession Number(s): [id number] cc: Shauna Wallace DO; Kika Brasher CNM [...] 06/19/24 1001 DD/ 1036 TD/TT: 06/06/24 1056 Structurer: [facility] External Provider IMG BI PROCEDURES Final Result * Pap Smear (04/24/2024 12:00 AM EST) 04/24/2024 04/27/2024 9:3 0 AM EST [facility] - 04/29/2024 10:21 AM EST ----- ------- Name: Velia Davis ? Age/Sex: 44/F ? : 1980 Unit#: [id number] ?? Attend Dr: Kika Brasher CNM ?Re04/24/24 ?Status: DEP REF ? Location: HO.LAB ?Disch: ? ----- ------- SPEC : [id number] ?RECD: 04/27/24 ? STATUS: ??SOUT ? REQ NUM: [id number] ? GUALBERTO: 04/24/24- ? SUBM DR: Kika Brasher CNM ? [...] Copies To: ?? Shauna Wallace DO ?? [facility] ?? [address] ?? [place] [address] ?? [phone] ?? Kika Brasher CNM ?? [facility] ?? [address] ?? [place] [address] ?? [phone] ----- ------- Signed (signature on file) SHONNA Uribe ([facility]) 04/29/24 1021 ? ----- ------- ? END OF REPORT ? us Generic External Data Provider LAB CYTOLOGY DAVID CHEEMA Final Result [facility] [address] [place] [phone] * HIV 1/2 ANTIGEN/ANTIBODY,FOURTH GENERATION W/RFL (08/02/2021 1:25 PM EST) Pathologist [facility] HIV-1/2 ANTIGEN AND ANTIBODIES, 4TH GENERATION W/ REFLEX NON-REACT [facility] NON-REACT [facility] Comment: HIV-1 antigen and HIV-1/HIV-2 [...] ? For additional information please refer to http://Kaltura.Turpitude/faq/[email or web address] (This link is being provided for informational/ educational purposes only.) ? The performance of this assay has not been clinically validated in patients less than 2 years old. ?? 08/02/2021 1:25 PM EST Shauna Wallace DO LAB BLOOD ORDERABLES Final R esult Performing Organization Address [facility] Co de Phone Number [facility] [address] * HEPATITIS C ANTIBODY RFLX (03/16/2020 1:25 PM EDT) Pathologist [facility] HEPATITIS C ANTIBODY NONREACTIVE NONREACTIVE [facility] Comment: Antibodies to HCV not detected; does not exclude early acute HCV infection. 03/16/2020 1:25 PM EDT Shauna Wallace DO HISTORICAL/NON ORDERABLE LAB S Final Result Performing Organization Address [facility] de Phone Number [facility] [address] * HPV mRNA E6/E7 (09/23/2018 12:17 PM EDT) HPV mRNA E6/E7 Not Detected NOT DETECTED [facility] Comment: This test was performed using the APTIMA(R) HPV Assay ([employer] This assay detects E6/E7 viral messenger RNA (mRNA) from 14 high-risk HPV types (16,18,31,33,35,39,45,51, 52,56,58,59,66,68). For additional information please refer to: http://Kaltura.Turpitude/faq/EOA179j6 (This link is being provided for informational/ educational purposes only.) The analytical performance characteristics of this assay have been determined by [facility] [place]. The modifications have not been cleared or approved by the FDA. This assay has been validated pursuant to the CLIA regulations and is used for clinical purposes. Test Performed by [facility], [place], [address] [place], [place] Brian Aponte M.D., Ph.D., Director of Laboratories , CLIA [id number] Please note: ??Effective 02/27/2016, HPV testing will be performed using [employer] APTIMA test which targets mRNA. Detecting mRNA instead of DNA, as in older methods, offers significant improvements in specificity. 09/23/2018 12:1 7 PM EDT us Historical Provider HISTORICAL/NON ORDERABLE LABS Final Result Performing Organization Address City/State/[facility] Phone Number [facility] [address] from Last 3 Months or Most Recently Relevant to Health Maintenance Insurance [employer] PPO DENTAL - [facility] [employer] Care Teams Ceramic Artist Relationship Specialty Start Date End Date Shauna Wallace DO [address] [place] [phone] PCP - General Family Medicine 12/01/19
--- OUTSIDE RECORDS SUMMARY | 2024-08-24 07:41 | XMS_ITS | Encounter Summary ---
Author Organization [employer] Address [address] [facility] 7t [place] [address] Care Team Providers Care Marine Engineering Teacher Name Role Phone PaigeShauna woo Primary Care Provider [phone] Encounter Details Date Type Department Care Team [...] Description 09/16/2024 2:00 PM EDT Office Visit [facility] [address] [place] [address] Gaurav, Deb [address] [place] [address] documented as of this encounter Visit Diagnoses Not on filedocumented in this encounter Additional Health Concerns Assessment Noted Time PHQ-9 Depression Total Score: 0 07/26/19 23 11:44 AM EST documented as of this encounter Care Teams Marine Engineering Teacher Relationship Specialty Start Date End Date Shauna Wallace DO [address] [place] [address] PCP - General Family Medicine 12/01/19 documented as of this encounter
--- OUTSIDE RECORDS SUMMARY | 2024-08-24 07:41 | XMS_ITS | Encounter Summary ---
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 Encounter Details Date Type Department Care Team (Late st Contact Info) Description 08/02/2022 Telephone [facility] [address] [place], [place] [phone] Anton Forbes DDS [address] [place], [place] [phone] Appointment (Patient had to cancel appt for [...] Description 09/16/2024 2:00 PM EDT Office Visit [facility] [address] [place] [address] Gaurav, Deb [address] [place] [address] documented as of this encounter Visit Diagnoses Not on filedocumented in this encounter Additional Health Concerns Assessment Noted Time PHQ-9 Depression Total Score: 0 07/26/19 23 11:44 AM EST documented as of this encounter Care Teams Sort Line Relationship Specialty Start Date End Date Shauna Wallace DO [address] [place] [address] PCP - General Family Medicine 12/01/19 documented as of this encounter
[2024-08-30 00:54] LABS: Pancreatic Elastase-1 133 mcg/g (>200)
[2024-08-30 01:33] LABS: Calprotectin, Fecal 74 mcg/g
== END 2024-08-23 00:01 | disposition home or self-care (01) ==
LOC: HO.LNP
PROVIDERS: Visit Provider Internal Medicine
DX: K52.9 Noninfective gastroenteritis and colitis, unspecified (principal)
CPT/HCPCS: 82656; 83993

== ENCOUNTER 2024-08-23 | Outpatient (REF) | payer BC, SELFPAY ==
[2024-08-27 20:54] LABS: Fecal Fat Qualitative Normal (Normal)
== END 2024-08-23 00:01 | disposition home or self-care (01) ==
LOC: HO.LNP
PROVIDERS: Visit Provider Internal Medicine
DX: K52.9 Noninfective gastroenteritis and colitis, unspecified (principal)
CPT/HCPCS: 82705

== ENCOUNTER 2025-04-26 14:34 | Outpatient (AMB) | payer BC, SELFPAY ==
--- NOTE | 2025-04-26 14:35 | MHC.OFFVIS ---
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 Health Rn Required: No Allergies adalimumab (From HUMIRA) Allergy (Unknown, Verified 04/26/25 14:42) RASH infliximab (From REMICADE) Allergy (Unknown, Verified 04/26/25 14:42) ANAPHYLAXIS suture (SUTURE) Allergy (Unknown, Verified 04/26/25 14:42) LOCAL RXN- INFECTION IN 2004 Remicaid Allergy (Unknown, Uncoded 04/26/25 14:42) anaphylaxis Medication List - Last Reconciled 04/26/25 by Jayne Beach LPN albuterol sulfate 90 mcg/actuation 2 puffs PO Q4H PRN glmmusszas-akxuuesyzkjbx-sawa 50-325-40 mg 1 tab PO Q6H PRN levonorgestrel (Mirena) intrauterine omeprazole 20 mg PO QAM peg 3350-electrolytes 236-22.74-6.74 -5.86 gram (Golytely) 240 mL PO Q10M Saccharomyces boulardii (Probiotic (S.boulardii)) 250 mg PO DAILY zolmitriptan (Zomig) 2.5 mg PO Q2-4H PRN Is last menstrual period known: Yes Last menstrual period: 04/19/25 Post menopausal: No Patient : No Do you need a note to return to daycare/school/sports/work: No HPI 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 Also last month when she had the cramping it hurt when she had sex. She had not experienced this before when she had sex more recently it was okay. She is not worried about any STIs and declines testing her Pap smear was negative last year. She lost weight with bariatric surgery and has had cosmetic surgery after that. [facility] Medical History Asthma Surgical History H/O breast augmentation H/O abdominoplasty H/O knee surgery H/O bilateral breast reduction surgery History of sleeve gastrectomy Family History Paternal Grandfather Prostate cancer Maternal Grandfather Prostate cancer Father No problems noted. Mother High cholesterol Hyperthelia Hypertension Sister No problems noted. Daughter PCOS (polycystic ovarian syndrome) Social History Alcohol intake: current Patient Tobacco Use Status: Never used Tobacco Sexual orientation: Straight/Heterosexual Gender identity: Female Female Reproductive History Menstrual Age of Menarche: 12 Duration of menses: <3 days Date of last menstrual period: 04/19/25 control method: progestin IUCD Total pregnancies: 1 Full term: 1 Number of Living Children: 1 Date of last pap smear: 04/24/24 History of abnormal pap smear: No History of STI: No Date of Mammogram: 06/06/24 (BI RADS-2) Physical Exam Vital Signs: Last Vital Signs BP 98/60 04/26/25 14:38 BMI result Body Mass Index 30.9 Const Other: Scars from breast reduction then implants, and abdominal cosmetic surgery. General: healthy appearing, comfortable, no acute distress, well developed and alert Nutritional Appearance: average body habitus Orientation/consciousness: patient oriented x3 Limitations: no limitations HEENT Head: Yes normocephalic Neck Neck: Yes normal visual inspection Chest Chest palpation & inspection: normal inspection of the chest Breast/axilla inspection: normal inspection of the breasts and normal inspection of the axillae Breast/axilla palpation: normal palpation of the breasts and normal palpation of the axillae Resp Effort & Inspection: normal respiratory effort GI Inspection: Yes normal to inspection, No Abdominal wall edema and No distended Palpation (GI): Soft to palpation and nontender Other: External exam within normal limits vagina is pink and moist and healthy appearing cervix is multiparous pink smooth healthy appearing with normal appearing mucus and the Mirena string visible probe of os did not yield any firm surface such as an IUD however patient did feel it a little bit uncomfortable. Decision made to order an ultrasound to verify placement of Mirena. General: Yes bladder normal to palpation External Female Exam: normal external appearance and normal appearance of the urethra Speculum Exam - Vagina: normal appearance of the vagina, normal palpation and normal vaginal discharge Speculum Exam - Cervix: normal appearance of the cervix, normal palpation and nontender Bimanual exam- vagina & uterus: normal bimanual exam, normal palpation, uterine size normal, bladder normal to palpation, consistency normal, normal palpation, uterine mobility normal, uterine shape normal, No Cervical tenderness present, non-tender and no cervical motion tenderness Bimanual Exam- Adnexa, other: normal adnexae, no masses, normal and No adnexal tenderness Neuro General: patient oriented x3 Results AMB Test Urine AMB Test Urine Negative Last Edit by Jayne Beach LPN on 04/26/25 14:51 Results Reviewed Results Reviewed: Laboratory Last Values Tst Clinic Negative 04/26/25 14:51 -Name: Velia Davis Age/Sex: 44/F Attending: Kika Brasher CNM : 1980 Submitted by: Kika Brasher CNM Copies to: Shauna Wallace DO MR #: [id number] Status: DEP REF Collected: 04/24/24 Location: .LAB Received: 04/27/24 Interpretation Satisfactory for evaluation. Negative for intraepithelial lesion or malignancy. Mild inflammation. HPV High Risk: Negative HPV Genotyping 16: Negative HPV Genotyping 18: Negative Clinical Information LMP: No menses (IUD) Previous PAP test: Unknown date/findings Material Received ThinPrep-Cervical Copies To Shauna Wallace DO [address] [address] Kika Brasher CNM [facility] [address] [facility]rd [place] [address] Electronically Signed By: SHONNA Uribe (ASCP) 04/29/24 1021 As of April 08, 2024, the PAP screening and HPV testing will be performed at [facility] (CLIA#[id number]), [address] [place] [address]. Testing for HPV was performed using the [employer] RANULFO 6800 system. The presence of HPV is the female genital tract is associated with a number of diseases, including cervical carcinoma. The HPV DNA high risk pool test for HPV 31, 33, 35, 39, 45, 51, 52, 56, 58, 59, 66 and 68. The testing for HPV 16 and 18 genotypes has also been performed. A positive result indicates detection of nucleic acid sequences from one or more subtypes, whereas negative result indicates such sequences were not detected. Technical services and automated prescreening were performed by the [employer] Patient: Velia Davis Age/Sex: 44/F MR#: [id number] Page 1 of 2 Assessment & Plan Assessment & Plan (1) Well woman exam with routine gynecological exam: Code(s): Z01.419 - Encounter for gynecological examination (general) (routine) without abnormal findings Category: Medical (2) Cervical cancer screening: Comment: 04/24/2024 Pap is negative with negative HPV. Code(s): Z12.4 - Encounter for screening for malignant neoplasm of cervix Category: Medical (3) Presence of 52 mg levonorgestrel-releasing intrauterine device (IUD): Comment: Replaced 12/05/2021 painful per patient memory. Code(s): Z97.5 - Presence of (intrauterine) contraceptive device Category: Social Hx (4) Pelvic pain: Comment: Increased cramping recently and dyspareunia 1 m.onth ago Code(s): R10.2 - Pelvic and perineal pain Category: Medical Plan -----Discussed in this visit the following: healthy balanced diet, regular and consistent exercise, getting recommended health screens, doing the best she can for her particular health concerns, kegel exercises, pap smear screening and followup recommendations, mammography screening and SBE, normal changes in cycles in her life stage--- . She is up-to-date on her mammograms and Pap smears. She had not had any bleeding or spotting her cramping with the Mirena for years so this is a new symptom. Given her sensations I am offering an ultrasound to verify that it is still fundally placed. If it is lower we will offer her replacement. For now I have no concern about it being specifically problematic. She will be having a change in her insurance so we will be requesting it to be done to suit her insurance needs. We will have a visit afterwards to discuss the results if everything is okay and her insurance allows it can be a tele visit. Orders: Orders US pelvic and transvaginal Today R10.2 - Pelvic and perineal pain, Z01.419 - Encounter for gynecological examination (general) (routine) without abnormal findings, Z12.4 - Encounter for screening for malignant neoplasm of cervix, Z97.5 - Presence of (intrauterine) contraceptive device Coding Level of Care Code Est Pt Prev Care 40-64y(13986) Diagnoses Well woman exam with routine gynecological exam Z01.419 Cervical cancer screening Z12.4 Presence of 52 mg levonorgestrel-releasing intrauterine device (IUD) Z97.5 Pelvic pain R10.2
[2025-04-26 14:38] VITALS: BP 98/60; BMI 30.9
--- OUTSIDE RECORDS SUMMARY | 2025-04-26 16:54 | XMS_ITS | Encounter Summary ---
Author Organization [employer] Address [address] [place] [address] Care Team Providers Care Pool Manager Name Role Phone Priscillareynaldo Shauna Primary Care Provider [phone] Encounter Details Date Type Department Care Team ([facility] Contact Info) Description 10/12/2024 Orders Only [facility] [address] [place], [place] [phone] Lauren Petersen Social History Tobacco Use Types Packs/Day Years [...] Care Team (Late st Contact Info) Description 04/29/2025 3:30 PM EST Office Visit [facility] [address] [place] [address] Anton Forbes DDS [address] [place] [address] 07/27/2025 3:00 PM EST Office Visit [facility] [address] [place] [address] Deb Nolasco [address] [place] [address] documented as of this encounter Procedures Procedure Name Priority Date/Time Associated Diagnosis Comments HPV MRNA E6/E7 REFLEX TO HPV 16, 18/45 Routine 04/24/2024 12:00 AM EST documented in this encounter Results * HPV mRNA E6/E7 w/Reflex to HPV Genotypes 16, 18/45 (04/24/2024 12:00 AM EST) us Historical Provider LAB CYTOLOGY ORDERABLES F inal Result [facility] [address] [place] [address] [phone] documented in this encounter Visit Diagnoses Not on filedocumented in this encounter Additional Health Concerns Assessment Noted Time PHQ-9 Depression Total Score: 0 07/26/19 23 11:44 AM EST documented as of this encounter Care Teams Pool Manager Relationship Specialty Start Date End Date Shauna Wallace DO [address] [place], [place] [phone] PCP - General Family Medicine 12/01/19 documented as of this encounter
--- OUTSIDE RECORDS SUMMARY | 2025-04-26 16:54 | XMS_ITS | Clinical Summary ---
Author Organization [employer] Address [address] [facility] 7[address] [place] [address] Care Team Providers Care Product Engineering Manager Name Role Phone PriscillaShauna jacobs Primary Care Provider [phone] Allergies Active Allergy Reactions Criticality Noted Date Comments Adalimumab 07/26/2022 Infliximab 07/26/2022 Sumatriptan 07/26/2022 chest tightness Medications Diclofenac Sodium 1 % gelIndications: Neck pain Apply 2 g topically if needed in the morning and at bedtime (pain). 100 g 3 4 Active Saccharomyces boulardii (probiotic) 250 MG capsule Take 1 capsule (250 mg) by mouth Once per day. 30 capsule 3 5 Active omeprazole OTC (PriLOSEC OTC) 20 MG EC tablet Take 1 tablet (20 mg) by mouth before breakfast. Do not crush, chew, or split. 30 tablet 11 5 06/22/19 26 Active fluticasone (Flonase) 50 MCG/ACT nasal spray Administer 2 sprays into each nostril Once per day. Shake gently. Before first use, prime pump. After use, clean tip and replace cap. 16 g 3 5 08/18/19 26 Active naproxen (Naprosyn) 500 MG tablet Take 1 tablet (500 mg) by mouth if needed in the morning and at bedtime for mild pain. 30 tablet 1 5 08/18/19 26 Active pseudoephedrine ER (Sudafed-12 Hour) 120 MG 12 hr tablet Take 1 tablet (120 mg) by mouth every 12 (twelve) hours. Do not crush, chew, or split. 20 tablet 5 08/18/19 Active albuterol 108 (90 Base) MCG/ACT inhaler Inhale 2 puffs every 6 (six) hours if needed for wheezing. 18 g 1 5 11/04/19 26 Active docusate sodium (Colace) 100 MG capsule Take 1 capsule (100 mg) by mouth 2 times daily. 180 capsule 3 5 12/16/19 26 Active polycarbophil (Fibercon) 625 MG tablet Take 1 tablet (625 mg) by mouth 2 times daily. 180 tablet 3 5 12/16/19 26 Active hydrocortisone (Proctosol HC) 2.5 % rectal cream Insert into the rectum if needed in the morning and at bedtime for hemorrhoids. 28 g 1 5 12/16/19 26 Active witch chuyita-glycerin (Tucks) pad Apply topically if needed for irritation or hemorrhoids. 96 each 3 5 Active Tirzepatide-Haja ght Management (Zepbound) 2.5 MG/0.5ML solution auto-injectorIn dications:BMI 35.0-35.9,adult Inject 0.5 mL (2.5 mg) under the skin 1 (one) time per week. 2 mL 3 5 Active Tirzepatide-Haja ght Management (Zepbound) 2.5 MG/0.5ML solutionIndicat ions:BMI 35.0-35.9,adult Inject 0.5 mL under the skin 1 (one) time per week. 2 mL 3 5 Active butalbital-acet aminophen-caffe ine 50-325-40 MG tabletIndicatio ns:Nonintractab le chronic migraine TAKE 1 TABLET BY MOUTH EVERY 4 HOURS NEEDED FOR HEADACHE 20 tablet 1 5 Active Tirzepatide-Haja ght Management (Zepbound) 5 MG/0.5ML solution auto-injectorIn dications:Obesi ty (BMI 35.0-39.9 without comorbidity) Inject 0.5 mL (5 mg) under the skin 1 (one) time per week. 2 mL 2 5 Active Tirzepatide-Haja ght Management (Zepbound) 5 MG/0.5ML solutionIndicat ions:Obesity (BMI 35.0-39.9 without comorbidity) Inject 5 mg under the skin 1 (one) time per week. 2 mL 1 5 Active phentermine 37.5 MG capsuleIndicati ons:BMI 35.0-35.9,adult TAKE 1 CAPSULE BY MOUTH EVERY DAY BEFORE BREAKFAST 30 capsule 5 Active ZOLMitriptan (Zomig) 2.5 MG tabletIndicatio ns:Nonintractab le chronic migraine TAKE 1 TABLET BY MOUTH AT ONSET OF MIGRAINE. MAY REPEAT ONCE AFTER 2 HOURS IF NEEDED. DO NOT EXCEED 2 TABLETS PER 24 HOURS. 9 tablet 1 5 Active Active Problems Problem Noted Date Diagnosed Date Dental calculus 01/04/2025 Gingival bleeding 01/04/2025 Chronic gastroesophageal reflux disease 08/18/19 25 BMI [...] gastrectomy 02/2023 Chronic migraine 12/26/2016 Rheumatoid arthritis ([facility]/HCC) 12/26/2016 Assessment & Plan (07/24/2024 1:42 PM [...] she is advised to schedule with her remote operations producer within 6 months. Lipids/FBS: UTD, next one due 2025 Vaccinations: declined COVID and Flu, Adult IZ are UTD. Dental visit: UTD next one due 12/2024 Hyperchloremia 07/24/2024 08/17/2024 Assessment & Plan (07/24/2024 1:49 PM EST): Most likely related to intermittent diarrhea. Advised regarding proper hydration with SRO. Caries of cervical margin of tooth 04/23/2023 06/22/2024 Dental calculus 04/18/2023 06/22/2024 Morbid obesity (CMS/[facility]) 07/26/202202/2023 Overweight 07/26/2022 08/17/2024 Encounters Date Type Department Care Team Description 03/18/2025 Refill [facility] [address] [place] [address] Shauna Wallace, BMI 35.0-35.9,adult; Nonintractable chronic migraine 03/18/2025 Refill [facility] [address] [place] [address] Tiffanie Su MD Nonintractable chronic migraine 02/25/2025 Refill [facility] [address], [place] [phone] Shauna Wallace DO Nonintractable chronic migraine 02/12/2025 Refill [facility] [address] [place] [address] Shauna Wallace, BMI 35.0-35.9,adult from Last 3 Months Immunizations Immunization Administration Dates Next Due Influenza Injectable Quadriv alant Preservative Free IIV4 MDCK 03/07/2023,03/01/2022,03/07/2021,03/01,04/01/2019 Influenza injectable quadriv alent IIV4 with preservative 04/02/2018 Influenza, seasonal, injecta ble, preservative free 04/06/2024 MMR 01/07/2024 Moderna Covid-19 Vaccine 12+ 07/28/2020,06/30/19 Pneumococcal Polysaccharide PPSV23 12/11/2019 Tdap 12/26/2016 Social [...] Sign Reading Time Taken Comments Blood Pressure 122/74 01/11/2025 2:04 PM EDT Pulse 90 12/15/2024 10:20 AM EDT Temperature 36.8 C (98.3 F) 12/15/2024 10:20 AM EDT Respiratory Rate 19 12/15/2024 10:20 AM EDT Oxygen Saturation 97% 12/15/2024 10:20 AM EDT Inhaled Oxygen Concentration - - Weight 87.5 kg (193 lb) 12/15/2024 10:20 AM EDT Height 160 cm (5' 3 ) 12/15/2024 10:20 AM EDT Body Mass Index 34.19 12/15/2024 10:20 AM EDT Plan of Treatment Upcoming Encounters Date Type Department Care Team (Late st Contact Info) Description 04/29/2025 3:30 PM EST Office Visit [facility] [address] [place] [address] Anton Forbes DDS [address] [place] [address] 07/27/2025 3:00 PM EST Office Visit [facility] [address] [place] [address] Deb Nolasco [address] [place] [address] Health Maintenance Due Date Last Done Comments Family Planning (PISQ) 1997 HPV Vaccines (1 - 3-dose series) 1997 Hepatitis B Vaccines (1 of 3 - 19+ 3-dose series) 2001 Pneumococcal Vaccine: Pediatrics (0 to 5 Years) and At-Risk Patients (6 to 49) Years (2 of 2 - PCV) 12/10/2020 12/11/2019 Dental Oral Exam 11/24/2024 05/25/2024, 10/09/2022 Dental Prophylaxis 11/24/2024 05/25/2024, 1 06/18/2022, 10/18/2022 COVID-19 Vaccine (3 - season) 2025 07/28/2020, 06/30/2020 Influenza Vaccine (#1) 2025 4, 03/07/2023, 03/01/2022, Additional history exists Dental X-Ray: Bitewings 05/26/2025 05/25/2024, 04/11 Mammogram 06/06/2025 06/06/2024 Depression Screening 07/24/2025 07/24/2024, 07/26/19 23 SDOH Screening 07/24/2025 07/24/2024 Alcohol/Substance Use Screening 08/17/2025 08/17/2024 Dental X-Ray: Full Mouth 10/11/2025 10/10/2022 Disability Screening 12/15/2025 12/15/2024 Tobacco Screening 01/11/2026 01/11/2025 DTaP/Tdap/Td Vaccines (2 - Td or Tdap) 12/26/2026 12/26/2016 Cervical Cancer Screening 04/24/2029 HPV/Cotest 04/24/2029 04/24/2024, 04/0 02/2019, 11/13/2017 Pap Smear 04/24/2029 04/24/2024 Lipid Panel 06/23/2029 06/23/2024, 05/05/2020 Zoster Vaccines (1 of 2) 2032 RSV Patients and Patients Aged 60 years or older (1 - 1-dose 75+ series) 2057 Hepatitis C Screening Completed 03/16/2020 HIV Screening Completed 08/02/2021, 08/15, 03/16/2020 HIB Vaccines Aged Out No longer eligi ble based on patient's age to complete this topic Hepatitis A Vaccines Aged Out No long er eligible based on patient's age to complete this topic IPV Vaccines Aged Out No longer eligi ble based on patient's age to complete this topic Meningococcal B Vaccine Aged Out No l onger eligible based on patient's age to complete [...] Procedure Name Priority Date/Time Associated Diagnosis Comments LIPID PANEL, STANDARD Routine 06/23/2024 6:45 AM EST BI MAMMOGRAM SCREEN W HE W IMPLANTS ASAEL Routine 06/06/2024 10:36 AM EST Full PROPHYLAXIS - ADULT Routine 05/25/2024 2:00 PM EST Dental calculus Periodontal disease BITEWINGS - 4 RADIOGRAPHIC IMAGES Routine 05/25/2024 2:00 PM EST Tipped teeth Dental calculus Periodontal disease PERIODIC ORAL EVALUATION - ESTABLISHED PATIENT Routine 05/25/2024 2:00 PM EST HPV MRNA E6/E7 REFLEX TO HPV 16, 18/45 Routine 04/24/2024 12:00 AM EST PAP SMEAR Routine 04/24/2024 12:00 AM EST HIV 1/2 ANTIGEN/ANTIBODY, FOURTH GENERATION W/RFL Routine 08/02/2021 1:25 PM EST ZZZ HISTORICAL HEPATITIS C ANTIBODY RFLX Routine 03/16/2020 1:25 PM EDT from Last 3 Months or Most Recently Relevant to Health Maintenance Results * (ABNORMAL) Lipid Panel, Standard (06/23/2024 6:45 AM EST) Triglycerides 88 <150 mg/dL [facility] Comment:Desirable Triglyceri de: less than 150 mg/dLBorderline High Triglyceride 150-199 mg/dLHigh Triglyceride: 200-499 mg/dLVery High Triglyceride: greater than or equal to 5OO mg/dL Cholesterol 178 <200 mg/dL [facility] Comment:Desirable Cholestero l: less than 200 mg/dLBorderline High Cholesterol: 200-239 mg/dLHigh Cholesterol: greater than 239 mg/dL LDL Cholesterol Calculated 111(H) <100 mg/dL [facility] Comment:Desirable LDL: less than 100 mg/dLNear Optimal/Above Optimal LDL: 110- 129 mg/dLBorderline High LDL: 130-159 mg/dLHigh LDL: 160-189 mg/dLVery High LDL: greater than or equal to 190 mg/dL HDL Cholesterol 50 >40 mg/dL [facility] Comment:Desirable HDL: great er than 40 mg/dL Note: This HDL assay may give artificially low results in patients with liver disease. 06/23/2024 6:45 AM EST 06/23/2024 6:45 AM EST us Generic External Data Provider LAB BLOOD ORDERAB LES Final Result [facility] [address] [place] [address] [phone] * BI Mammogram Screen w/ He w/ Implants Asael (06/06/2024 10:36 AM EST) Anatomical Region Laterality Modality Mammography 06/06/2024 10:3 6 AM EST Narrative 06/19/2024 10:04 AM EST [facility] [address] [place] [address] Mammography Report Signed Patient: Velia Davis MR#: [id number] : 1980 Acct:[id number] Age/Sex: 44 / F ADM Date: 06/06/24 Loc: HO.MAMMO Attending Dr: Kika Brasher CNM Ordering Physician: Kika Brasher CNM Results: 2Beni gn Findings Date of Service: 06/06/24 Follow Up: 1 Year From [facility] Mammogram Procedure(s): MM tomosynthesis screen imp BI Accession Number(s): [id number] cc: Shauna Wallace DO; Kika Brasher CNM [...] 06/19/24 1001 DD/ 1036 TD/TT: 06/06/24 1056 Intrusion Analyst: Procedure Note Donotuseinterpreter, Image - 06/19/2024 [facility] [address] [place] [address] Mammography Report Signed Patient: Velia DavisMR#: [id number] : 1980Acct:[id number] Age/Sex: 44 / FADM Date: 06/06/24 Loc: HO.MAMMO Attending Dr: Kika Brasher CNM Ordering Physician: Kika Brasheresults: 2Beni gn Findings Date of Service: 06/06/24Follow Up: 1 Year From Orig inal Mammogram Procedure(s): MM tomosynthesis screen imp BI Accession Number(s): [id number] cc: Shauna Wallace DO; Kika Brasher CNM [...] 06/19/24 1001 DD/ 1036 TD/TT: 06/06/24 1056 Intrusion Analyst: [facility] External Provider IMG BI PROCEDURES Final Result * HPV mRNA E6/E7 w/Reflex to HPV Genotypes 16, 18/45 (04/24/2024 12:00 AM EST) Historical Provider LAB CYTOLOGY ORDERABLES F inal Result [facility] [address] [place] [phone] * Pap Smear (04/24/2024 12:00 AM EST) 04/24/2024 04/27/2024 9:3 0 AM EST Narrative [facility] - 04/29/2024 10:21 AM EST ----- ------- Name: Davis,Velia Age/Sex: 44/F : 1980 Unit#: [id number] Attend Dr: Kika Brasher CNM Re04/24/24 Status: DEP REF Location: HO.LAB Disch: ----- ------- SPEC : [id number] RECD: 04/27/24 STATUS: BEBA MICHAEL NUM: [id number] GUALBERTO: 04/24/24-[address]: Kika Brasher CNM ENTERED: 04/27/24 SP TYPE: Pap Smr OTHR DR: Shauna Wallace DO ORDERED: Pap Smear Interpretation Satisfactory for evaluation. Negative for intraepithelial lesion or malignancy. Mild inflammation. HPV High Risk: Negative HPV Genotyping 16: Negative HPV Genotyping 18: Negative Clinical Information LMP: No menses (IUD) Previous PAP test: Unknown date/findings Material Received ThinPrep-Cervical Copies To: Shauna Wallace DO [address] [address] Kika Brasher CNM [facility] [address] [facility] [place] [address] ----- ------- Signed (signature on file) SHONNA Uribe ([facility]) 04/29/24 1021 ----- ------- END OF REPORT Generic External Data Provider LAB CYTOLOGY ORDE RABLES Final Result Performing Organization Address City/[facility]/ZIP Co de Phone Number [facility] [address] [place] [address] [phone] * HIV 1/2 ANTIGEN/ANTIBODY,FOURTH GENERATION W/RFL (08/02/2021 1:25 PM EST) HIV-1/2 ANTIGEN AND ANTIBODIES, 4TH GENERATION W/ REFLEX NON-REACT JUSTA NON-REACT JUSTA [facility] Comment: HIV-1 antigen and HIV-1/HIV-2 antibodies were not detected. There is no laboratory evidence of HIV infection. PLEASE NOTE: This information has been disclosed to you from records whose confidentiality may be protected by state law. If your state requires such protection, then the state law prohibits you from making any further disclosure of the information without the specific written consent of the person to whom it pertains, or as otherwise permitted by law. A general authorization for the release of medical or other information is NOT sufficient for this purpose. For additional information please refer to http://education.Brass Monkey/faq/HBJ904 (This link is being provided for informational/ educational purposes only.) The performance of this assay has not been clinically validated in patients less than 2 years old. 08/02/2021 1:25 PM EST Shauna Wallace DO LAB BLOOD ORDERABLES Final R esult [facility] [address] * HEPATITIS C ANTIBODY RFLX (03/16/2020 1:25 PM EDT) HEPATITIS C ANTIBODY NONREACTIVE NONREACTIVE [facility] Comment: Antibodies to HCV not detected; does not exclude early acute HCV infection. 03/16/2020 1:25 PM EDT Shauna Rodrigo DO HISTORICAL/NON ORDERABLE LAB S Final Result [facility] [address] from Last 3 Months or Most Recently Relevant to Health Maintenance Insurance [employer] PPO DENTAL - [facility] Care Teams Product Engineering Manager Relationship Specialty Start Date End Date Shauna Wallace DO [address] [place] [phone] PCP - General Family Medicine 12/01/19
--- OUTSIDE RECORDS SUMMARY | 2025-04-26 16:54 | XMS_ITS | Encounter Summary ---
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 Would like to resheduled. 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 Encounter Details Date Type Department Care Team ([facility] st Contact Info) Description 08/02/2022 Telephone [facility] [address] [place], [place] [phone] Anton Forbes DDS [address] [place], [place] [phone] Appointment (Patient had to cancel appt for [...] student. 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 documented in this encounter Plan of Treatment Upcoming Encounters Date Type Department Care Team (Late st Contact Info) Description 04/29/2025 3:30 PM EST Office Visit [facility] [address] [place] [address] Anton Forbes DDS [address] [place] [address] 07/27/2025 3:00 PM EST Office Visit [facility] [address] [place] [address] GauravDeb [address] [place] [address] documented as of this encounter Visit Diagnoses Not on filedocumented in this encounter Additional Health Concerns Assessment Noted Time PHQ-9 Depression Total Score: 0 07/26/19 23 11:44 AM EST documented as of this encounter Care Teams Vp Purchasing Relationship Specialty Start Date End Date Shauna Wallace DO [address] [place] [address] PCP - General Family Medicine 12/01/19 documented as of this encounter
--- OUTSIDE RECORDS SUMMARY | 2025-04-26 16:54 | XMS_ITS | Encounter Summary ---
Author Organization [employer] [facility] Address [address] [place] [address] [address] [place] [address] Care Team Providers Care Cook Camp Name Role Phone Shauna Wallace DO Primary Care Provider + [phone] Encounter Details Date Type Department Care Team (Latest Contact Info) Description 03/26/2019 Abstract [facility] Dental, Provider, DDS Social History [...] Upcoming Encounters Date Type Department Care Team ( Contact Info) Description 04/29/2025 3:30 PM EST Office Visit [facility] [address] [place] [address] Anton Forbes DDS [address] [place] [address] 07/27/2025 3:00 PM EST Office Visit [facility] [address] [place] [address] Deb Nolasco [address] [place] [address] documented as of this encounter Visit Diagnoses Not on filedocumented in this encounter Care Teams Cook Camp Relationship Specialty Start Date End Date Shauna Wallace DO [address] [place] [address] PCP - General Family Medicine 12/01/19 documented as of this encounter
--- OUTSIDE RECORDS SUMMARY | 2025-04-26 16:54 | XMS_ITS | Encounter Summary ---
Author Organization [employer] Address [address] [facility] 7[address] [place] [address] Care Team Providers Care Facilities Painter Name Role Phone PriscillaShauna jacobs Primary Care Provider + [phone] Reason for Visit * Reason Onset Date Comments Med Refill 03/18/2025 Encounter Details Date Type Department Care Team ([facility] st Contact Info) Description 03/18/2025 Refill [facility] [address] [place] [address] Tiffanie Su MD [address] [place] [address] Nonintractable chronic migraine Social History Tobacco Use [...] Description 04/29/2025 3:30 PM EST Office Visit [facility] [address] [place] [address] Anton Frobes DDS [address] [place] [address] 07/27/2025 3:00 PM EST Office Visit [facility] [address] [place] [address] Deb Nolasco [address] [place] [address] documented as of this encounter Visit Diagnoses Diagnosis Nonintractable chronic migraine documented in this encounter Additional Health Concerns Assessment Noted Time PHQ-9 Depression Total Score: 0 07/26/19 23 11:44 AM EST documented as of this encounter Care Teams Facilities Painter Relationship Specialty Start Date End Date Shauna Wallace DO [address] [place] [address] PCP - General Family Medicine 12/01/19 documented as of this encounter
--- OUTSIDE RECORDS SUMMARY | 2025-04-26 16:54 | XMS_ITS | Encounter Summary ---
Author Organization [email or web address] Address [address] [facility] 7[address] [place] [address] Care Team Providers Care Power Plant Electrician Name Role Phone PriscillaShauna jacobs Primary Care Provider + [phone] Reason for Visit * Reason Onset Date Comments Med Refill 11/03/2024 Encounter Details Date Type Department Care Team ([facility] st Contact Info) Description 11/03/2024 Refill [facility] [address] [place] [address] Marjan Ritchie MD [address] [place] [address] Social History Tobacco Use Types Packs/Day Years [...] Description 04/29/2025 3:30 PM EST Office Visit [facility] [address] [place] [address] Anton Forbes DDS [address] [place] [address] 07/27/2025 3:00 PM EST Office Visit [facility] [address] [place] [address] Deb Nolasco [address] [place] [address] documented as of this encounter Visit Diagnoses Not on filedocumented in this encounter Additional Health Concerns Assessment Noted Time PHQ-9 Depression Total Score: 0 07/26/19 23 11:44 AM EST documented as of this encounter Care Teams Power Plant Electrician Relationship Specialty Start Date End Date Shauna Wallace DO [address] [place] [address] PCP - General Family Medicine 12/01/19 documented as of this encounter
--- OUTSIDE RECORDS SUMMARY | 2025-04-26 16:54 | XMS_ITS | Data Portability ---
Author Organization CANDIDO Doug Dang [facility], [facility] Address [address] [place] [address] Assessment Encounter Date Assessment Date Assessment LastModified by Organization Details LastModified Time 01/14/2025 01/14/2025 Dx:bilateral kne e arthritis Interval History:44-year-o ld woman, bilateral knee pain, status post arthroscopy right knee 2018. At that time she had grade 4 lateral femoral condyle chondral loss. Complains of pain, mechanical clicking bilaterally. SocHx: nonsmoker, non drinker ROS: negative Past Medical/Surgical History/Meds/Jose Eduardo rgies reviewed and charted. Physical Exam: afebrile, vital signs stable, in no apparent distress, oriented to person/place/time . Gait: skin: intact, no erythema. Heart RRR. Lungs clear Abdomen soft, nontender. bilateralKNEE: no redness, warmth, deformity Effusion estimated 0cc right knee, 10 cc left knee. Atrophy none Range of Motion 0-130 degrees. Strength 5/5 all muscle groups. Michael negative. Pivot Shift negative Varus/Valgus/Post erior laxity testing: negative. Joint Line Tenderness: medial and lateral. Patellofemoral crepitus absent. New Studies: radiographs show early chondral irregularity bilaterally , predominantly laterally Impression:bilate ral knee arthritis Plan: 1.both these injected with corticosteroid, left knee aspirated for 10 cc, follow-up 3 months. [facility] speech recognition carton liner software was used to create portions of this document. An attempt at proofreading has been made to minimize errors. Please call for corrections. [email or web address] Not available 01/14/2025 15:43:17 Plan of Treatment Reminders Order Date Submit Date Provider Last Modified By Organization Details Last Modified Time Details Appointments None record ed. Lab None record ed. Referral None record ed. Procedures None record ed. Surgeries None record ed. Imaging None record ed. Medication Orders None record ed. Patient TargetsNo targets recorded. Patient InstructionsNo instructions recorded. Reason for Referral None Reported. Problems Name Problem SNOMED Code Status Onset Date Resolution Date Notes Provider Name and Address Organization Details Recorded Time Primary gonarthrosi s, bilateral [id number] Active 025 Janusz Colon PA-C [address], [place], [address], [facility] 16:30:15 Problem Notes None recorded. Procedures Surgical History Date Name Laterality Status Provider Name and Address Organization Details Recorded Time 5 Knee Kenalog 40 1cc Injection, Bilateral completed Janusz Colon PA-C [address], [place], [address], [facility] 04/09/2025 16:30:08 5 Knee Kenalog 40 1cc Injection, Bilateral completed Justin Cintron MD [address], [place], [address], [facility] 01/14/2025 15:44:16 Imaging Results None recorded. Procedure Notes None recorded. Medical Equipment None Reported. Allergies Allergen ID Allergen Name Allergen Category Reaction Reaction Severity Criticality Documentation Date Start Date Code Code System Note Provider Name and Address Organization Details Recorded Time 26609 Humira medicatio n Not available Not available Not available 08/19/20232020 50658 4 RxNorm Not Available [facility] 4 11:53:15 Medications Name Sig Start Date Stop Date Status Note LastModified by Organization Details LastModified Time phentermine 15 mg capsule TAKE 1 CAPSULE BY MOUTH EVERY DAY BEFORE BREAKFAST active Not Available Not Available No t Available butalbital-a cetaminophen -caffeine 50 mg-325 mg-40 mg tablet TAKE 1 TABLET BY MOUTH EVERY 4 HOURS NEEDED FOR HEADACHE active Not Available Not Available No t Available zolmitriptan 2.5 mg tablet TAKE 1 TABLET BY MOUTH AT ONSET OF MIGRAINE, MAY REPEAT ONCE AFTER 2 HOURS IF NEEDED, DO NOT EXCEED 2 TABLETS / 24 HOURS active Not Available Not Available No t Available omeprazole 20 mg capsule,molly yed release TAKE 1 CAPSULE BY MOUTH EVERY MORNING BEFORE BREAKFAST. DO NOT BREAK, CRUSH, DISSOLVE OR CHEW. active Not Available Not Available No t Available albuterol sulfate HFA 90 mcg/actuatio n aerosol inhaler INHALE 2 PUFFS BY MOUTH EVERY 6 HOURS NEEDED FOR WHEEZING OR SHORTNESS OF BREATH active Not Available Not Available No t Available phentermine 37.5 mg capsule TAKE 1 CAPSULE BY MOUTH EVERY DAY BEFORE BREAKFAST active Not Available Not Available No t Available naproxen 500 mg tablet TAKE 1 TABLET BY MOUTH TWICE DAILY IN THE MORNING AND AT BEDTIME NEEDED FOR MILD PAIN active Not Available Not Available No t Available Fiber-Lax 625 mg tablet TAKE 1 TABLET BY MOUTH TWICE DAILY active Not Available Not Available No t Available diclofenac 1 % topical gel APPLY TO THE AFFECTED AREA(S) 2 GRAMS EVERY MORNING AND AT BEDTIME NEEDED (for pain) active Not Available Not Available N ot Available oxycodone HCl-oxycodon e-ASA 1 every 4 - 6 hours as needed DO NOT DRIVE WHILE ON THIS MEDICATION 2017 active Statu s: 'Curr ent'; Not Available Not Available Not Available Probiotic (S.boulardii ) 250 mg capsule TAKE 1 CAPSULE BY MOUTH EVERY DAY active Not Available Not Available No t Available Vitals Date Recorded Body height Body mass index (BMI) Body weight Provider Name and Address Organization Details Last Updated DateTime 01/14/2025 160.02 cm 32.8 kg/m2 23664.59 g JANETT EATON [facility] 01/14/2025 15:10:34 Date Recorded Body height Body mass index (BMI) Body weight Provider Name and Address Organization Details Last Updated DateTime 04/09/2025 160.02 cm 32.8 kg/m2 99617.59 g LIZ HERR [facility] 04/09/2025 15:29:05 Social History None recorded. Functional Status None recorded. Mental Status None recorded. Family History Nothing Reported. Medical History Condition Response Allergies/Hayfever N Coronary Artery Disease N Anxiety/Depression N Breathing or lung disorders N Emphysema N Nerve Disorders N Thyroid Problems N COPD N Pacemaker N Anemia N Kidney/Bladder Problems N Vascular Disease N Heart Trouble N Heart Attack ([place]) N Gastrointestinal Disease N Cholesterol N Diabetes N Autoimmune disease N Bleeding Disorder N Inflammatory Joint disease N Orthotics N Arthritis N Seizures/Epilepsy N Blood Clot N AIDS/HIV N Congestive Heart Failure (CHF) N Acid Reflux (GERD) N Cancer N Stroke N Asthma N Circulation Problems N Peripheral Vascular Disease N Sleep Apnea N Hepatitis N Heart Disease N Rheumatoid Arthritis N Arrhythmia N Pulmonary Embolism N Headaches Y Fibromyalgia N Hypertension N Osteoporosis N Gynecological HistoryNo gynecological history recorded. Obstetrics History GPAL:G 0 P 0 0 0 0 Past Encounters Encounter ID Performer Location Encounter Start Date Encounter Closed Date Diagnosis/Indication Diagnosis SNOMED-CT Code Diagnosis ICD10 Code Diagnosis IMO Codes Diagnosis Note [id number] MD [facility] [address] [place] [address] 01/14/2025 14:40:48 01/20/2025 12:28:26 Arthritis of right knee joint [id number] 390901 M17.11 809892 Arthritis of left knee joint 8781108440 921898 M17.12 [id number] Janusz Colon PA-C [facility] [address] [place] [address] 04/09/2025 15:22:31 2025 13:52:23 Primary gonarthrosis, bilateral 761204782 M17.0 5093088 Health Concerns Section Related Observation LastModified by Organization Detai ls LastModified Time None Recorded Concern Status LastModified by Organization Details LastModified Time None Recorded Advance Directives Directive None Recorded Payers Insurance Date Sequence Insurance Name Policy Number Policy Yu Covered Member ID Yu Member ID Guarantor Name [id number] 1 MARCUS (PPO) [id number] Velia Davis [id number] Velia Davis Notes Date Note Type Note Provider Name and Address Organization Details Recorded Time 04/09/2025 text/html I am seeing the patient today under the supervision of Dr. Rowe who was available but who did not see the patient. HPI: Patient with history of bilateral knee arthritis returns for follow-up evaluation and repeat injection. Excellent previous injection [address] Cintron with long-lasting relief of symptoms. She feels she may have overdone things with a lot of walking while traveling to [place] and is interested in repeat cortisone PMH/PSH/MEDS/ALL/FMH /SOC HX/ ROS: All reviewed in detail per my medical intake sheet General Exam: Vitals signs as noted below Mental Status: Alert and oriented x3. Normal insight, affect, and grooming BOX LIDDER: Gross motor coordination is intact. No spasticity or clonus noted. Extremities: Calves are soft and nontender. Skin on lower extremities is intact. Palpable pedal pulses bilaterally Orthopedic Exam: Bilateral restricted range of motion good anterior-posterior stability no laxity valgus or varus stressing. Exquisite medial joint line tenderness with patellofemoral crepitance noted, no significant effusion, 5/5 strength. X-rays from previous visit reviewed Assessment: Osteoarthritis bilateral knees Plan: The patient was thoroughly counseled today regarding their knee condition, its natural history, and the treatment options both nonoperative and operative. The patient is interested in receiving an injection with corticosteroid. The patient suffered no adverse reactions and felt immediate relief via a local anesthetic effect. Post-injection precautions were discussed. The patient is aware that the injection can be repeated as often as every 3 months. Follow-up is scheduled for that time. Janusz Colon PA-C [address] [facility] [address], [place], [address], [facility] [place] 04/09/2025 16:30:38 OBGyn Episode No OBEpisode recorded.
== END 2025-04-26 16:14 | disposition home or self-care (01) ==
LOC: HO.HWS 14:34
PROVIDERS: PCP Family Medicine; Visit Provider Advanced Practice Midwife
DX: Z01.419 Encounter for gynecological examination (general) (routine) without abnormal findings (principal); Z12.4 Encounter for screening for malignant neoplasm of cervix; Z97.5 Presence of (intrauterine) contraceptive device; R10.20 Pelvic and perineal pain unspecified side
CPT/HCPCS: 99396; 99459

== ENCOUNTER 2025-06-07 22:19 | Emergency (ER) | payer BC, SELFPAY ==
[2025-06-07 22:31] VITALS: BP 146/81; PULSE 82; RESP 18; TEMP 36.6; O2SAT 99; BMI 29.6
[2025-06-08 02:29] VITALS: BP 144/78; PULSE 77; RESP 16; TEMP 36.7; O2SAT 100
--- OUTSIDE RECORDS SUMMARY | 2025-06-08 02:53 | XMS_ITS | Encounter Summary ---
Author Organization [facility] Address [address] [facility] 7t [place] [address] Care Team Providers Care Fine Arts Model Name Role Phone PriscillaShauna jacobs Primary Care Provider + [phone] Reason for Visit * Reason Onset Date Comments Med Refill 03/18/2025 Encounter Details Date Type Department Care Team ([facility] st Contact Info) Description 03/18/2025 Refill [facility] MED[facility] [address] [place] [address] Tiffanie Su MD [address] [place] [address] Nonintractable chronic migraine Social History Tobacco Use [...] Care Team (Late st Contact Info) Description 07/07/2025 10:00 AM EST Office Visit [facility] MED[facility] [address] [place] [address] Shauna Wallace DO [address] [place] [address] 07/27/2025 2:15 PM EST Office Visit [facility] ADULT DENTAL [address] [place] [address] Osmin Nolascoaris [address] [place] [address] 07/27/2025 3:00 PM EST Office Visit [facility] ADULT DENTAL [address] [place] [address] Yo Grande DDS [address] [place] [address] documented as of this encounter Visit Diagnoses Diagnosis Nonintractable chronic migraine documented in this encounter Additional Health Concerns Assessment Noted Time PHQ-9 Depression Total Score: 0 07/26/19 23 11:44 AM EST documented as of this encounter Care Teams Fine Arts Model Relationship Specialty Start Date End Date Shauna Wallace DO [address] [place] [address] PCP - General Family Medicine 12/01/19 documented as of this encounter
--- OUTSIDE RECORDS SUMMARY | 2025-06-08 02:53 | XMS_ITS | Encounter Summary ---
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 Would like to resheduled. 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 Encounter Details Date Type Department Care Team ([facility] st Contact Info) Description 08/02/2022 Telephone [facility] ADULT DENTAL [address] [place], [place] [phone] Anton Forbes DDS [address] [place], [place] [phone] Appointment (Patient had to cancel appt for [...] Description 07/07/2025 10:00 AM EST Office Visit [facility] [address] [place] [address] Shauna Wallace DO [address] [place] [address] 07/27/2025 2:15 PM EST Office Visit [facility] ADULT DENTAL [address] [place] [address] Gaurav, Deb [address] [place] [address] 07/27/2025 3:00 PM EST Office Visit [facility] ADULT DENTAL [address] [place] [address] Yo Grande, DDS [address] [place] [address] documented as of this encounter Visit Diagnoses Not on filedocumented in this encounter Additional Health Concerns Assessment Noted Time PHQ-9 Depression Total Score: 0 07/26/19 23 11:44 AM EST documented as of this encounter Care Teams Education And Training Coordinator Relationship Specialty Start Date End Date Shauna Wallace DO [address] [place] [address] PCP - General Family Medicine 12/01/19 documented as of this encounter
--- OUTSIDE RECORDS SUMMARY | 2025-06-08 02:53 | XMS_ITS | Data Portability ---
Author Organization CANDIDO Doug Dang [facility], [facility] Address [address] [place] [address] Assessment Encounter Date Assessment Date Assessment LastModified [...] aspirated for 10 cc, follow-up 3 months. [facility] speech recognition property consultant software was used to create portions of [...] Details Recorded Time Primary gonarthrosi s, bilateral 554664615 Active 025 Janusz Colon PA-C [address], [place], [address], [facility] 16:30:15 Problem Notes None recorded. Procedures Surgical History Date Name Laterality Status Provider Name and Address Organization Details Recorded Time 5 Knee Kenalog 40 1cc Injection, Bilateral completed Janusz Colon PA-C [address], [place], [address], [facility] 04/09/2025 16:30:08 5 Knee Kenalog 40 1cc Injection, Bilateral completed Justin Cintron MD [address], [place], [address], [facility] 01/14/2025 15:44:16 Imaging Results None recorded. Procedure Notes None recorded. Medical Equipment None Reported. Allergies Allergen ID Allergen Name Allergen Category Reaction Reaction Severity Criticality Documentation Date Start Date Code Code System Note Provider Name and Address Organization Details Recorded Time 27359 Humira medicatio n Not available Not available Not available 08/19/20232020 40941 4 RxNorm Not Available [facility] 4 11:53:15 Medications Name Sig Start Date [...] Updated DateTime 01/14/2025 160.02 cm 32.8 kg/m2 28626.59 g JANETT EATON [facility] 01/14/2025 15:10:34 Date Recorded Body height Body mass index (BMI) Body weight Provider Name and Address Organization Details Last Updated DateTime 04/09/2025 160.02 cm 32.8 kg/m2 06720.59 g LIZ HERR [facility] 04/09/2025 15:29:05 Social History None recorded. Functional Status None recorded. Mental Status None recorded. Family History Nothing Reported. Medical History Condition Response Allergies/Hayfever N Coronary Artery Disease N Breathing or lung disorders N Anxiety/Depression N Emphysema N Nerve Disorders N Thyroid Problems N COPD N Pacemaker N Kidney/Bladder Problems N Anemia N Vascular Disease N Heart Trouble N Heart Attack ([place]) N Gastrointestinal Disease N Cholesterol N Diabetes N Autoimmune disease N Inflammatory Joint disease N Bleeding Disorder N Orthotics N Seizures/Epilepsy N Arthritis N Blood Clot N AIDS/HIV N Congestive Heart Failure (CHF) N Acid Reflux (GERD) N Cancer N Stroke N Asthma N Circulation Problems N Peripheral Vascular Disease N Sleep Apnea N Hepatitis N Heart Disease N Rheumatoid Arthritis N Pulmonary Embolism N Arrhythmia N Headaches Y Fibromyalgia N Hypertension N Osteoporosis N Gynecological HistoryNo gynecological history recorded. Obstetrics History GPAL:G 0 P 0 0 0 0 Past Encounters Encounter ID Performer Location Encounter Start Date Encounter Closed Date Diagnosis/Indication Diagnosis SNOMED-CT Code Diagnosis ICD10 Code Diagnosis IMO Codes Diagnosis Note [id number] MD [facility] [address] [place] [address] 01/14/2025 14:40:48 01/20/2025 12:28:26 Arthritis of right knee joint [id number] 535397 M17.11 309713 Arthritis of left knee joint 8666607645 750114 M17.12 [id number] Janusz Cloon PA-C [facility] [address] [place] [address] 04/09/2025 15:22:31 2025 13:52:23 Primary gonarthrosis, bilateral 635728585 M17.0 [id number] Health Concerns Section Related Observation LastModified by Organization Detai ls LastModified Time None Recorded Concern Status LastModified by Organization Details LastModified Time None Recorded Advance Directives Directive None Recorded Payers Insurance Date Sequence Insurance Name Policy Number Policy Yu Covered Member ID Yu Member ID Guarantor Name 2025 1 MARCUS (PPO) [id number] Velia Davis [id number] Velia Davis Notes Date Note Type [...] oriented x3. 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 No spasticity [...] for that time. Janusz Colon PA-C [address] [facility] [address], [place], [address], [facility] [place] [facility] 04/09/2025 16:30:38 OBGyn Episode No OBEpisode recorded.
--- OUTSIDE RECORDS SUMMARY | 2025-06-08 02:53 | XMS_ITS | Encounter Summary ---
Author Organization [facility] Address [address] [facility] [facility] [facility] [address] [place] [address] Care Team Providers Care Personal Property Assessor Name Role Phone Priscillareynaldo Shauna Primary Care Provider + [phone] Encounter Details Date Type Department Care Team ([facility] Contact Info) Description 10/12/2024 Orders Only [facility] [address] [place], [place] [phone] Lauren Petersen Social History Tobacco Use Types [...] Description 07/07/2025 10:00 AM EST Office Visit [facility] MEDICINE [address] [place] [address] Shauna Wallace DO [address] [place] [address] 07/27/2025 2:15 PM EST Office Visit [facility] ADULT DENTAL [address] [place] [address] Gaurav, Deb [address] [place] [address] 07/27/2025 3:00 PM EST Office Visit [facility] ADULT DENTAL [address] [place] [address] Yo Grande, DDS [address] [place] [address] documented as of this encounter Procedures Procedure Name Priority Date/Time Associated Diagnosis Comments HPV MRNA E6/E7 REFLEX TO HPV 16, 18/45 Routine 04/24/2024 12:00 AM EST documented in this encounter Results * HPV mRNA E6/E7 w/Reflex to HPV Genotypes 16, 18/45 (04/24/2024 12:00 AM EST) us Historical Provider LAB CYTOLOGY ORDERABLES F inal Result [facility] [address] [place] [address] [phone] documented in this encounter Visit Diagnoses Not on filedocumented in this encounter Additional Health Concerns Assessment Noted Time PHQ-9 Depression Total Score: 0 07/26/19 23 11:44 AM EST documented as of this encounter Care Teams Personal Property Assessor Relationship Specialty Start Date End Date Shauna Wallace DO [address] [place] [address] PCP - General Family Medicine 12/01/19 documented as of this encounter
--- OUTSIDE RECORDS SUMMARY | 2025-06-08 02:53 | XMS_ITS | Encounter Summary ---
Author Organization [facility] Address [address] [facility] [address] [place] [address] Care Team Providers Care Ui Software Engineer Name Role Phone Shauna Wallace DO Primary Care Provider [phone] Encounter Details Date Type Department Care Team (Latest Contact Info) Description 03/26/2019 Abstract [facility] CONVERSIONS Dental, Provider, DDS Social [...] Encounters Date Type Department Care Team ( st Contact Info) Description 07/07/2025 10:00 AM EST Office Visit [facility] MEDICINE [address] [place] [address] Shauna Wallace DO [address] [place] [address] 07/27/2025 2:15 PM EST Office Visit [facility] ADULT DENTAL [address] [place] [address] Deb Nolasco [address] [place] [address] 07/27/2025 3:00 PM EST Office Visit [facility] ADULT DENTAL [address] [place] [address] Yo Grande DDS [address] [place] [address] documented as of this encounter Visit Diagnoses Not on filedocumented in this encounter Care Teams Ui Software Engineer Relationship Specialty Start Date End Date Shauna Wallace DO [address] [place] [address] PCP - General Family Medicine 12/01/19 documented as of this encounter
--- OUTSIDE RECORDS SUMMARY | 2025-06-08 02:53 | XMS_ITS | Clinical Summary ---
Author Organization [employer] Address [address] [facility] 7[address] [place] [address] Care Team Providers Care Campus Police Officer Name Role Phone PaigeShauna woo Primary Care Provider [phone] Allergies Active Allergy Reactions Criticality Noted Date Comments Adalimumab 07/26/2022 Infliximab 07/26/2022 Sumatriptan 07/26/2022 chest tightness Medications Diclofenac Sodium 1 % gelIndications: Neck pain Apply 2 g topically if needed in the morning and at bedtime (pain). 100 g 3 4 Active Saccharomyces boulardii (probiotic) 250 MG capsule Take 1 capsule (250 mg) by mouth Once per day. 30 capsule 3 5 Active Additional Information Patient not taking.Reported on 04/29/2025 omeprazole OTC (PriLOSEC OTC) 20 MG EC tablet Take 1 tablet (20 mg) by mouth before breakfast. Do not crush, chew, or split. 30 tablet 11 5 06/22/19 26 Active Additional Information Patient not taking.Reported on 04/29/2025 fluticasone (Flonase) 50 MCG/ACT nasal spray Administer [...] for wheezing. 18 g 1 5 11/04/19 Active docusate sodium (Colace) 100 MG capsule Take 1 capsule (100 mg) by mouth 2 times daily. 180 capsule 3 5 12/16/19 Active Additional Information Patient not taking.Reported on 04/29/2025 polycarbophil (Fibercon) 625 MG tablet Take 1 tablet (625 mg) by mouth 2 times daily. 180 tablet 3 5 12/16/19 Active Additional Information Patient not taking.Reported on 04/29/2025 hydrocortisone (Proctosol HC) 2.5 % rectal cream Insert into the rectum if needed in the morning and at bedtime for hemorrhoids. 28 g 1 5 12/16/19 Active Additional Information Patient not taking.Reported on 04/29/2025 witch chuyita-glycerin (Tucks) pad Apply topically if needed for irritation or hemorrhoids. 96 each 3 Active Tirzepatide-Haja ght Management (Zepbound) 2.5 MG/0.5ML solution auto-injectorIn dications:BMI 35.0-35.9,adult Inject 0.5 mL (2.5 mg) under the skin 1 (one) time per week. 2 mL 3 5 Active Additional Information Patient not taking.Reported on 04/29/2025 Tirzepatide-Haja ght Management (Zepbound) 2.5 MG/0.5ML solutionIndicat ions:BMI 35.0-35.9,adult Inject 0.5 mL under the skin 1 (one) time per week. 2 mL 3 5 Active Additional Information Patient not taking.Reported on 04/29/2025 butalbital-acet aminophen-caffe ine 50-325-40 MG tabletIndicatio ns:Nonintractab [...] Active Problems Problem Noted Date Diagnosed Date Fractured dental bahai without loss of mat erial 04/29/2025 Dental calculus 01/04/2025 Gingival bleeding 01/04/2025 Chronic [...] gastrectomy 02/2023 Chronic migraine 12/26/2016 Rheumatoid arthritis ([facility]) 12/26/2016 Assessment & Plan (07/24/2024 1:42 PM [...] she is advised to schedule with her sanitarian inspector within 6 months. Lipids/FBS: UTD, next one due 2025 Vaccinations: declined COVID and Flu, Adult IZ are UTD. Dental visit: UTD next one due 12/2024 Hyperchloremia 07/24/2024 08/17/2024 Assessment & Plan (07/24/2024 1:49 PM EST): Most likely related to intermittent diarrhea. Advised regarding proper hydration with SRO. Caries of cervical margin of tooth 04/23/2023 06/22/2024 Dental calculus 04/18/2023 06/22/2024 Morbid obesity ([facility]) 07/26/202202/2023 Overweight 07/26/2022 08/17/2024 Encounters Date Type Department Care Team Description 05/20/2025 3:30 PM EST Office Visit [facility] [address] [place] [address] Yo Grande DDS 05/18/2025 Telephone [facility] [address] [place] [address] Shauna Wallace DO Recall Letter (Recall Letter sent 05/18/25.) 04/29/2025 3:30 PM EST Office Visit [facility] [address] [place] [address] Anton Forbes DDS Fractured dental bahai without loss of material (Primary Dx) 03/18/2025 Refill [facility] [address] [place] [address] Shauna Wallace DO BMI 35.0-35.9,adult; Nonintractable chronic migraine 03/18/2025 Refill [facility] [address] [place] [address] Tiffanie Su MD Nonintractable chronic migraine from Last 3 Months Immunizations Immunization Administration [...] Sign Reading Time Taken Comments Blood Pressure 118/72 04/29/2025 3:35 PM EST Pulse 90 12/15/2024 10:20 AM EDT Temperature [...] Description 07/07/2025 10:00 AM EST Office Visit [facility] [address] [place] [address] Shauna Wallace DO [address] [place] [address] 07/27/2025 2:15 PM EST Office Visit [facility] [address] [place] [address] Deb Nolasco [address] [place] [address] 07/27/2025 3:00 PM EST Office Visit [facility] [address] [place] [address] Yo Grande, DDS [address], [place] [id number] Health Maintenance Due Date Last Done Comments [...] 11/24/2024 05/25/2024, 1 06/18/2022, 10/18/2022 COVID-19 Vaccine ( - season) 2025 07/28/2020, 06/30/2020 Influenza Vaccine (#1) 2025 , 03/07/2023, 03/01/2022, Additional history exists Mammogram 06/06/2025 06/06/2024 Depression Screening 07/24/2025 07/24/2024, 07/26/19 23 SDOH Screening 07/24/2025 07/24/2024 Alcohol/Substance Use Screening 08/17/2025 08/17/2024 Dental X-Ray: Full Mouth 10/11/2025 10/10/2022 Disability Screening 12/15/2025 12/15/2024 Tobacco Screening 05/20/2026 05/20/2025 Dental X-Ray: Bitewings 05/21/2026 05/20/20 25, 05/25/2024, 04/11/2023 DTaP/Tdap/Td Vaccines (2 - Td or Tdap) [...] Procedure Name Priority Date/Time Associated Diagnosis Comments RE-EVAL - POST-OP OFFICE VISIT Routine 05/20/2025 3:30 PM EST BITEWING - SINGLE RADIOGRAPHIC IMAGE Routine 05/20/2025 3:30 PM EST CASE PRESENTATION, DETAILED AND EXTENSIVE TREATMENT PLANNING Routine 04/29/2025 3:30 PM EST INTRAORAL - PERIAPICAL FIRST RADIOGRAPHIC IMAGE Routine 04/29/2025 3:30 PM EST LIMITED ORAL EVALUATION - PROBLEM FOCUSED Routine 04/29/2025 3:30 PM EST LIPID PANEL, STANDARD Routine 06/23/2024 6:45 AM EST BI MAMMOGRAM SCREEN W HE W IMPLANTS ASAEL Routine 06/06/2024 10:36 AM EST Full PROPHYLAXIS - ADULT Routine 05/25/2024 2:00 PM EST Dental calculus Periodontal disease PERIODIC ORAL EVALUATION - ESTABLISHED PATIENT Routine 05/25/2024 2:00 PM EST HPV MRNA E6/E7 REFLEX TO HPV 16, 18/45 Routine 04/24/2024 12:00 AM EST PAP SMEAR Routine 04/24/2024 12:00 AM EST HIV 1/2 ANTIGEN/ANTIBODY, FOURTH GENERATION W/RFL Routine 08/02/2021 1:25 PM EST ZTIANA HISTORICAL HEPATITIS C ANTIBODY RFLX Routine 03/16/2020 1:25 PM EDT from Last 3 Months or Most Recently Relevant to Health Maintenance Results * (ABNORMAL) Lipid Panel, Standard (06/23/2024 6:45 AM EST) Triglycerides 88 <150 mg/dL [facility] Comment:Desirable Triglyceri de: less than 150 mg/dLBorderline High Triglyceride 150-199 mg/dLHigh Triglyceride: 200-499 mg/dLVery High Triglyceride: greater than or equal to 5OO mg/dL Cholesterol 178 <200 mg/dL [facility] Comment:Desirable Cholestero l: less than 200 mg/dLBorderline High Cholesterol: 200-239 mg/dLHigh Cholesterol: greater than 239 mg/dL LDL Cholesterol Calculated 111(H) <100 mg/dL [facility] Comment:Desirable LDL: less than 100 mg/dLNear Optimal/Above Optimal LDL: 110- 129 mg/dLBorderline High LDL: 130-159 mg/dLHigh LDL: 160-189 mg/dLVery High LDL: greater than or equal to 190 mg/dL HDL Cholesterol 50 >40 mg/dL [facility] Comment:Desirable HDL: great er than 40 mg/dL Note: This HDL assay may give artificially low results in patients with liver disease. 06/23/2024 6:45 AM EST 06/23/2024 6:45 AM EST us Generic External Data Provider LAB BLOOD ORDERAB LES Final Result [facility] [address] [place] [address] [phone] * BI Mammogram Screen w/ He w/ Implants Asael (06/06/2024 10:36 AM EST) Anatomical Region Laterality Modality Mammography 06/06/2024 10:3 6 AM EST Narrative 06/19/2024 10:04 AM EST [facility] [address] [place], [place] [address] Mammography Report Signed Patient: Velia Davis MR#: [id number] : 1980 Acct:[id number] Age/Sex: 44 / F ADM Date: 06/06/24 Loc: HO.MAMMO Attending Dr: Kika Brasher CNM Ordering Physician: Kika Brasher CNM Results: 2Beni gn Findings Date of Service: 06/06/24 Follow Up: 1 Year From Orig inal Mammogram Procedure(s): MM tomosynthesis screen imp BI Accession Number(s): [id number] cc: Shauna Wallace DO; Kika Brasher CNM [...] 06/19/24 1001 DD/ 1036 TD/TT: 06/06/24 1056 Polysomnographic Tech: Procedure Note Donotuseinterpreter, Image - 06/19/2024 [facility] [address] [place] [address] Mammography Report Signed Patient: Velia DavisMR#: [id number] : 1980Acct:[id number] Age/Sex: 44 / FADM Date: 06/06/24 Loc: HO.MAMMO Attending Dr: Kika Brasher CNM Ordering Physician: Kika Brasheresults: 2Beni gn Findings Date of Service: 06/06/24Follow Up: 1 Year From Orig ina Mammogram Procedure(s): MM tomosynthesis screen imp BI Accession Number(s): [id number] cc: Shauna Wallace DO; Kika Brasher CNM [...] by: Anju Freeman DO 06/19/2024 10:01 AM [facility] Dictated By: Anju Freeman DO Signed By: <Electronically signed by Anju Freeman DO in OV> 06/19/24 1001 DD/ 1036 TD/TT: 06/06/24 1056 Polysomnographic Tech: [facility] External Provider IMG BI PROCEDURES Final Result * HPV mRNA E6/E7 w/Reflex to HPV Genotypes 16, 18/45 (04/24/2024 12:00 AM EST) us Historical Provider LAB CYTOLOGY ORDERABLES F inal Result [facility] [address] [place] [phone] * Pap Smear (04/24/2024 12:00 AM EST) 04/24/2024 04/27/2024 9:3 0 AM EST Narrative [facility] - 04/29/2024 10:21 AM EST ----- ------- Name: Velia Davis Age/Sex: 44/F : 1980 Unit#: [id number] Attend Dr: Kika Brasher CNM Re04/24/24 Status: DEP [facility] ----- ------- SPEC : [id number] RECD: 04/27/24 STATUS: BEBA MICHAEL NUM: [id number] GUALBERTO: 04/24/24-[address]: Kika Brasher CNM [...] Received ThinPrep-Cervical Copies To: Shauna Wallace DO [facility] [address] [place] [address] Kika Brasher CNM [facility] [address] [facility], 3rd [place] [address] ----- ------- Signed (signature on file) SHONNA Uribe (ASCP) 04/29/24 1021 ----- ------- END OF REPORT us Generic External Data Provider LAB CYTOLOGY DAVID CHEEMA Final Result [facility] [address] [place] [address] [phone] * HIV 1/2 ANTIGEN/ANTIBODY,FOURTH GENERATION W/RFL [...] purpose. For additional information please refer to http://education.WigWag/faq/DAK831 (This link is being provided for informational/ educational purposes only.) The performance of this assay has not been clinically validated in patients less than 2 years old. 08/02/2021 1:25 PM EST Shauna Wallace DO LAB BLOOD ORDERABLES Final R esult Performing Organization Address [facility] Co de Phone Number [facility] [address] * HEPATITIS C ANTIBODY RFLX (03/16/2020 1:25 PM EDT) HEPATITIS C ANTIBODY NONREACTIVE NONREACTIVE [facility] Comment: Antibodies to HCV not detected; does not exclude early acute HCV infection. 03/16/2020 1:25 PM EDT Shauna Wallace DO HISTORICAL/NON ORDERABLE LAB S Final Result Performing Organization Address [facility] Phone Number [facility] [address] from Last 3 Months or Most Recently Relevant to Health Maintenance Insurance [facility] P[facility] DENTAL - [facility] Care Teams Campus Police Officer Relationship Specialty Start Date End Date Shauna Wallace DO [address] [place] [id number] PCP - General Family Medicine 12/01/19
--- OUTSIDE RECORDS SUMMARY | 2025-06-08 02:53 | XMS_ITS | Continuity of Care Document ---
Author Organization [facility], ALFRED Dawn 2nd floor Address [address] [place] [address] Assessment No assessment recorded. Plan of Treatment Reminders Order Date Submit [...] Details Recorded Time Primary gonarthrosi s, bilateral [id number] Active 025 Janusz Colon PA-C [address], [place], [address], [facility] 16:30:15 Problem Notes None recorded. Procedures Surgical History Date Name Laterality Status Provider Name and Address Organization Details Recorded Time 5 Knee Kenalog 40 1cc Injection, Bilateral completed Janusz Colon PA-C [address], [place], [address], [facility] 04/09/2025 16:30:08 5 Knee Kenalog 40 1cc Injection, Bilateral completed Justin Cintron MD [address], [place], [address], [facility] 01/14/2025 15:44:16 Imaging Results None recorded. Procedure Notes None recorded. Medical Equipment None Reported. Allergies Allergen ID Allergen Name Allergen Category Reaction Reaction Severity Criticality Documentation Date Start Date Code Code System Note Provider Name and Address Organization Details Recorded Time 21779 Humira medicatio n Not available Not available Not available 08/19/20232020 39759 4 RxNorm Not Available [facility] 11:53:15 Medications Name Sig Start Date Stop [...] Updated DateTime 04/09/2025 160.02 cm 32.8 kg/m2 01586.59 g LIZ CARMENZA [place] - [place] [facility] 04/09/2025 15:29:05 Social History None recorded. Functional Status None recorded. Mental Status None recorded. Family History Nothing Reported. Medical History Condition Response Allergies/Hayfever N Coronary Artery Disease N Breathing or lung disorders N Anxiety/Depression N Emphysema N Nerve Disorders N Thyroid Problems N COPD N Pacemaker N Kidney/Bladder Problems N Anemia N Vascular Disease N Heart Trouble N Heart Attack ([place]) N Gastrointestinal Disease N Cholesterol N Diabetes [...] ICD10 Code Diagnosis IMO Codes Diagnosis Note [id number] FRANCIS Segovia 2nd floor [address] [facility] [place] [address] 04/09/2025 15:22:31 2025 13:52:23 Primary gonarthrosis, bilateral [id number] M17.0 [id number] Health Concerns Section Related Observation LastModified by Organization Detai ls LastModified Time None Recorded Concern Status LastModified by Organization Details LastModified Time None Recorded Payers Encounter Date Sequence Insurance Name Policy Number Policy Yu Covered Member ID Yu Member ID Guarantor Name 04/09/2025 1 [employer] ([place] [id number] Velia Davis [id number] Velia Davis Notes Date Note Type [...] oriented x3. Normal insight, affect, and grooming PRIVACY COMPLIANCE MANAGER: Gross motor coordination is intact. No spasticity [...] scheduled for that time. Janusz Colon PA-C [address] [place] [address] [address], [place], [address], [facility] - [place] [facility] 04/09/2025 16:30:38 OBGyn Episode No OBEpisode recorded.
--- OUTSIDE RECORDS SUMMARY | 2025-06-08 02:53 | XMS_ITS | Encounter Summary ---
Author Organization [employer] Address [address] [facility] [address] [place] [address] Care Team Providers Care Stick Feeder Name Role Phone PriscillaShauna jacobs Primary Care Provider [phone] Reason for Visit * Reason Onset Date Comments Med Refill 11/03/2024 Encounter Details Date Type Department Care Team ([facility] st Contact Info) Description 11/03/2024 Refill [facility] [address] [place] [address] Marjan Ritchie MD [address] [place] [address] Social History Tobacco Use Types Packs/Day Years [...] Description 07/07/2025 10:00 AM EST Office Visit [facility] [address] [place] [address] Shauna Wallace DO [address] [place] [address] 07/27/2025 2:15 PM EST Office Visit [facility] [address] [place] [address] Gaurav, Deb [address] [place] [address] 07/27/2025 3:00 PM EST Office Visit [facility] [address] [place] [address] Yo Grande DDS [address] [place] [address] documented as of this encounter Visit Diagnoses Not on filedocumented in this encounter Additional Health Concerns Assessment Noted Time PHQ-9 Depression Total Score: 0 07/26/19 23 11:44 AM EST documented as of this encounter Care Teams Stick Feeder Relationship Specialty Start Date End Date Shauna Wallace DO [address] [place] [address] PCP - General Family Medicine 12/01/19 documented as of this encounter
--- NOTE | 2025-06-08 03:09 | ED.ANIMALBIT ---
HPI - Animal Bite General Chief Complaint: Animal Bite Stated Complaint: bitten by cat Time Seen by Provider: 06/08/25 03:08 Source: patient Mode of arrival: ambulatory Limitations: no limitations History of Present Illness ED Provider: Armando LA HPI narrative: The patient is a 45-year-old female who presents today after being bitten earlier this evening by a stray cat that she brought inside from her yard approximately 4 days ago. She reports she has previously brought two other cats into her home without issue. Patient reports the cat has been staying in the basement for the past 4 days and has been hiding from her in her when they were in the basement. Tonight however the patient needed to work on a project in the basement and decided to bring the cat up to her bathroom while she works on the project. After trapping the cat using a PET wrap, and moving it to the bathroom, the cat became frightened and bit her when she tried to calm it, causing 3-4 puncture wounds that bled actively at the time. She controlled the bleeding with direct pressure, and the bleeding has since stopped. She denies current numbness, tingling, weakness, or inability to move her fingers. The cat displayed no signs concerning for rabies (no foaming at the mouth, normal behavior when not cornered). The cat has never been to a glazing machine operator but is currently being quarantined in the patient?s home and is able to be observed over the next 10 days. The patient has never received a rabies vaccine. Last tetanus immunization is unknown. Related Data Home Medications ?Medication ?Instructions ?Recorded ?Confirmed albuterol sulfate 90 mcg/actuation 2 puff PO Q4H PRN wheezing 06/30/20 04/26/25 aerosol inhaler levonorgestrel (Mirena) intrauterine 01/15/22 04/26/25 ydovuijjku-shisjgeknyudv-fcooualp 1 tab PO Q6H PRN 04/24/24 04/26/25 50 mg-325 mg-40 mg tablet zolmitriptan 2.5 mg tablet (Zomig) 2.5 mg PO Q2-4H PRN 04/24/24 05/11/24 Saccharomyces boulardii 250 mg 250 mg PO DAILY 08/17/24 capsule (Probiotic (S.boulardii)) omeprazole 20 mg capsule,delayed 20 mg PO QAM 08/17/24 release Previous Rx's ?Medication ?Instructions ?Recorded peg 3350-electrolytes 236 240 ml PO Q10M colonoscopy #4,000 08/17/24 gram-22.74 gram-6.74 gram-5.86 mL gram solution (Golytely) amoxicillin 875 mg-potassium 1 tab PO BID #14 tabs 06/08/25 clavulanate 125 mg tablet Allergies Allergy/AdvReac Type Severity Reaction Status Date / Time adalimumab (From [facility]) Allergy Unknown RASH Verified 06/07/25 22:36 infliximab (From REM[facility]) Allergy Unknown ANAPHYLAXIS Verified 06/07/25 22:36 suture (SUTURE) Allergy Unknown LOCAL RXN- Verified 06/07/25 22:36 INFECTION IN 2004 Remicaid Allergy Unknown anaphylaxis Uncoded 06/07/25 22:36 Review of Systems Review of Systems: Yes all other systems are reviewed and are negative PMFSH Past Medical History Medical History Asthma Surgical History H/O breast augmentation H/O abdominoplasty H/O knee surgery H/O bilateral breast reduction surgery History of sleeve gastrectomy Family History Family History Paternal Grandfather Prostate cancer Maternal Grandfather Prostate cancer Father No problems noted. Mother High cholesterol Hyperthelia Hypertension Sister No problems noted. Daughter PCOS (polycystic ovarian syndrome) Social History Social History Alcohol intake: current Patient Tobacco Use Status: Never used Tobacco Advance Directives: No Advance Directives Information Provided: Yes Do you have a plan to hurt others: No Plan Sexual orientation: Straight/Heterosexual Gender identity: Female Physical Exam ED Vital Signs: Vital Signs - 24 hr 06/07/25 22:31 06/08/25 02:29 Temperature 98 F 98.1 F Pulse Rate 82 77 Respiratory Rate 18 16 Blood Pressure 146/81 H 144/78 H Pulse Oximetry 99 100 Oxygen Delivery Method Room Air Room Air BMI result Body Mass Index 29.6 CONSTITUTIONAL: The patient appears non-toxic, well nourished and in no acute distress. Vital signs as documented. HEAD: Atraumatic, normocephalic. EYES: EOMs grossly intact, pupils equal, conjunctiva clear, no exudate. ENT: Nares patent, no discharge. Airway patent, no audible stridor, visible mucosa is pink and moist without noted lesions. NECK: trachea is midline, no obvious masses or gross abnormalities. CHEST: Symmetric movement, normal appearance. LUNGS: Non-labored work of breathing. CARDIAC: No evidence of hypoperfusion. ABDOMEN: Nondistended, no obvious injury. : Deferred. EXTREMITIES: Moves all extremities spontaneously without reported pain. There are multiple scratches and 3-4 well-approximated 1-2 mm puncture wounds to the dorsal aspect of the right mid forearm with mild local swelling. Hemostasis is noted, compartments are soft, distal CSM intact, 2+ radial pulse. No other obvious injury or deformity noted. NEURO: Alert and oriented x3, CN II-XII appear grossly intact. Cerebellar Functioning grossly intact. Speech clear and appropriate. SKIN: Warm, dry, color appropriate. No rashes or lesions noted. Medical Decision Making Medical Decision Making MDM Narrative: 3:19 AM 06/08/2025 (Skinny LA): The patient is a 45-year-old female who presents today after being bitten earlier this evening by a stray cat that she brought inside from her yard approximately 4 days ago. She reports she has previously brought two other cats into her home without issue. Patient reports the cat has been staying in the basement for the past 4 days and has been hiding from her in her when they were in the basement. Tonight however the patient needed to work on a project in the basement and decided to bring the cat up to her bathroom while she works on the project. After trapping the cat using a PET wrap, and moving it to the bathroom, the cat became frightened and bit her when she tried to calm it, causing 3-4 puncture wounds that bled actively at the time. She controlled the bleeding with direct pressure, and the bleeding has since stopped. She denies current numbness, tingling, weakness, or inability to move her fingers. The cat displayed no signs concerning for rabies (no foaming at the mouth, normal behavior when not cornered). The cat has never been to a glazing machine operator but is currently being quarantined in the patient?s home and is able to be observed over the next 10 days. The patient has never received a rabies vaccine. Last tetanus immunization is unknown. On exam the patient has multiple scratches and 3-4 well-approximated 1-2 mm puncture wounds to the dorsal aspect of the right forearm with mild local swelling. Hemostasis is noted, compartments are soft, distal CSM intact, 2+ radial pulse. There is no indication for repair. The patient we will receive tetanus update, Augmentin, and anti-inflammatories. Patient and her state their understanding that she needs to return to the ED for immediate treatment if the and will develops any signs or symptoms of rabies. Admission/Observation Consideration of admission/observation: Escalation of care including admission/observation considered Independent Historian Clinical information obtained from an independent historian. History obtained from or confirmed by: Spouse External Record Review External record reviewed: Outpatient record and Prior outpatient labs Prescription Management I considered prescription management with: Pain Medication and Antibiotic Discharge Plan Discharge Clinical Impression: Cat bite Patient Disposition: Home, Self-Care Instructions: Animal Bite (ED) Additional Instructions: Thank you for choosing [facility]'s Emergency Department for your care today. At this time there is no indication for admission to the hospital or continued ED observation, and it is safe to discharge you home. Thankfully your bite wounds today did not require any laceration/suture repair. Seeing as the CAT only attacked while corner to, and has otherwise been acting at baseline, and it is able to be quarantine/observed for 10 days to monitor for rabies symptoms, there was no indication for rabies vaccination at this time. We have updated your tetanus shot, and are treating you with a course of Augmentin. Please take this as prescribed until it is finished. You should take alternating (staggered) doses of ibuprofen 600mg and Tylenol 1000mg every 4 hours as needed for any additional pain. Please rest the injured area, and apply ice for 20 minutes every hour. Please return to the emergency department immediately for rabies vaccination series if the CAT develops any signs or symptoms of rabies. Please follow up with your primary care physician for re-evaluation, additional management of your symptoms, and continued preventative care. If you do not have a primary care physician, please call the [facility] at [phone] to establish a new primary care physician. While waiting to establish your new primary care physician, you can call our [facility] at [phone] for non-emergency needs. Please return to the emergency department if you develop a severe or sudden change in your symptoms, a fever over 100.4 that does not improve with Tylenol or Ibuprofen, recurrent vomiting, or any other new or worsening symptoms or concerns. Prescriptions: New amoxicillin-pot clavulanate 875-125 mg tablet 1 tab PO BID Qty: 14 0RF No Action albuterol sulfate 90 mcg/actuation HFA aerosol inhaler 2 puff PO Q4H PRN (Reason: wheezing) Mirena 20 mcg/24 hours (7 yrs) 52 mg intrauterine device intrauterine ukkknonajy-oxrccqdwjjynz-lnpx 50-325-40 mg tablet 1 tab PO Q6H PRN zolmitriptan [Zomig] 2.5 mg tablet 2.5 mg PO Q2-4H PRN Rx Instructions: do not exceed 4 doses per 24 hrs omeprazole 20 mg capsule,delayed release(DR/EC) 20 mg PO QAM Saccharomyces boulardii [Probiotic (S.boulardii)] 250 mg capsule 250 mg PO DAILY peg 3350-electrolytes [Golytely] 236-22.74-6.74 -5.86 gram recon soln 240 ml PO Q10M Qty: 4000 0RF Rx Instructions: as per split prep instructions, until fecal effluent is clear Referrals: hSauna Wallace DO [Primary Care Provider, Internal Medicine] Clinical Impression: Cat bite Print Language: Chilean
[2025-06-08] MEDS: Diphth,Pertus(ACell),Tet Adult 0.5 ML SYRINGE IM (03:37)
== END 2025-06-08 03:46 | disposition home or self-care (01) ==
PROVIDERS: Emergency Provider Emergency Medicine; PCP Family Medicine
DX: S51.851A Open bite of right forearm, initial encounter (principal); W55.01XA Bitten by cat, initial encounter; Y93.89 Activity, other specified; Y92.002 Bathroom of unspecified non-institutional (private) residence as the place of occurrence of the external cause; Z23 Encounter for immunization
CPT/HCPCS: 90471; 90715; 99283; 99284